=== PATIENT | female | born 1990 ===

== ENCOUNTER 2024-08-09 12:15 | Emergency (ER) | payer OTHER, SELFPAY ==
--- NOTE | ~2024-08-09 | CT_ITS ---
CLINICAL HISTORY: rectal bleeding CT abdomen and pelvis with contrast Comparison: None Findings: The lung bases are clear. Hepatomegaly. No bowel obstruction, pneumoperitoneum, or pneumatosis. Heterogeneous fluid-filled uterine cavity with hyperdense layering material likely blood products, may be physiologic. Bilateral adnexal cysts, on the left possibly corpus luteum cysts. Trace free pelvic fluid. The bones are intact. Focal spondylosis at L5-S1. Mildly prominent inguinal nodes. IMPRESSION: Findings suggestive of ruptured adnexal cysts with trace free pelvic fluid. This document has been electronically signed by: Eusebio Lombardi MD on 08/09/2024 20:28:43
[2024-08-09 12:33] VITALS: BP 132/73; PULSE 85; RESP 16; TEMP 36.8; O2SAT 100; BMI 23.6
--- NOTE | 2024-08-09 12:38 | ED_ITS ---
HPI - General Adult General Chief complaint: GI Bleed Stated complaint: Blood in stool 2 weeks Time Seen by Provider: 08/09/24 16:32 Source: patient Mode of arrival: ambulatory Limitations: no limitations History of Present Illness ED Provider: Dr. Maria T Betts HPI narrative: patient comes to the emergency room complaining of 2 weeks of bright red blood per rectum. Patient states that last week she was menstruating and thought that she was having vaginal blood. However, now that her period stopped, she is still noticing blood per rectum. Patient denies abdominal pain, denies rectal pain. Patient concerned about the bleeding since this is the 1st time that it happens. Related Data Allergies Allergy/AdvReac Type Severity Reaction Status Date / Time methocarbamol [From Robaxin] AdvReac Muscle Verified 08/09/24 12:36 cramps Review of Systems 2 Review of Systems: Constitutional : No Weight loss, No Fever, No Chills, No Night Sweats, No Fatigue, No Malaise ENT/Mouth : No Hearing loss, No Ear Pain, No Nasal Congestion, No Sinus Pain, No Hoarseness, No sore throat, No Rhinorrhea, No Swallowing Difficulty Eyes: No Eye Pain, No Swelling, No Redness, No Foreign Body, No Discharge, No Vision Changes Cardiovascular : No Chest Pain, No SOB, No Dyspnea on Exertion, No Orthopnea, No Edema, No Palpitations Respiratory : No Cough, No Sputum, No Wheezing, No Smoke Exposure, No Dyspnea Gastrointestinal : No Nausea, No Vomiting, No Diarrhea, No Constipation, No abdominal Pain, Two weeks of ongoing bright red blood per rectum Genitourinary : no irregular bleeding, No Dysuria, No Urinary Frequency, No Hematuria, No Urinary Incontinence, No Urgency, No Flank Pain, No Urinary Flow Changes, No Hesitancy Musculoskeletal : No joint pain, No Myalgias, No Joint Swelling Skin : No Skin Lesions, No rash Neuro : No Weakness, No Numbness, No Paresthesias, No Loss of Consciousness, No Dizziness, No Headache Psych : No Anxiety/Panic, No Depression, No SI/HI/AH/VH, No Social Issues, Heme/Lymph: No Bruising, No Bleeding,No Lymphadenopathy Endocrine : No Polyuria, No Polydipsia, No Temperature Intolerance PMFSH Social History Social History Unable to assess alcohol history related to: Unknown Physical Exam ED Vital Signs: Vital Signs - 24 hr 08/09/24 12:33 08/09/24 20:51 08/09/24 21:27 Temperature 98.2 F 98.1 F 98.1 F Pulse Rate 85 84 84 Respiratory Rate 16 18 18 Blood Pressure 132/73 134/76 134/76 Pulse Oximetry 100 100 100 Oxygen Delivery Method Room Air Room Air Room Air BMI result Body Mass Index 23.6 Const Other: Appearance: Alert. Oriented X3. No acute distress. Eyes: Pupils equal, round and reactive to light. ENT: Pharynx normal. Neck: Normal inspection. Neck supple. No lymph nodes noted. No crepitus CVS: Normal heart rate and rhythm. Pulses normal. Normal S1 and S2 Respiratory: No respiratory distress. Breath sounds normal. No Wheezing. No rales Abdomen: Soft and nontender. No rigidity. No distention. digital rectal exam shows brown stool Skin: Skin warm and dry. Normal skin color. Normal skin turgor. Extremities: No lower extremity edema. No Lacerations. No Rash Neuro: Oriented X 3. No motor deficit. No sensory deficit. Moving all extremities. No slurred speech. CN 2 through 12 grossly intact Psych: calm, cooperative, normal affect Course Course Course Narrative: RME: 34-year-old female presents to ED for lower abdominal cramping with blood in stool for the past 2 weeks. Patient denies any recent trauma, fever, or chills. Labs ordered. Medications Administered Discontinued Medications Generic Name Dose Route Start Last Admin Trade Name Freq PRN Reason Stop Dose Admin Iohexol 100 ml 08/09/24 19:46 08/09/24 19:46 Iohexol 350 Mg/Ml 100 Ml Infus..Btl IV 08/09/24 19:47 85 ml ONCE ONE Administration Ondansetron HCl 4 mg 08/09/24 18:29 08/09/24 18:37 Ondansetron Odt 4 Mg Tab.Rapdis TRANSLINGU 08/09/24 18:30 4 mg ONCE ONE Administration Medical Decision Making Medical Decision Making [facility] Narrative: my interpretation of labs, normal hemoglobin and hematocrit, normal chemistry ultrasound shows bilateral cyst, possible cyst rupture. No obvious GI findings. I discussed with the patient that it is possible that she may have internal hemorrhoids. Patient instructed to follow-up with surgery as she may need anoscopy and/or internal hemorrhoid ligation Lab Data [facility] Lab Attestation statement: I reviewed the patient's lab results. 08/09/24 13:22 08/09/24 13:22 Labs: Lab Results 08/09/24 08/09/24 08/09/24 Range/Units 13:22 18:40 20:59 WBC 5.9 (4.8-10.8) X10*3/uL RBC 4.89 (4.20-5.50) X10*6/uL Hgb 14.4 (12.0-16.0) g/dl Hct 43.2 (37.0-47.0) % MCV 88.3 (80.0-98.0) fL MCH 29.4 (27.0-33.0) pg MCHC 33.3 (31.0-35.0) g/dl RDW 12.8 (11.0-16.0) % Plt Count 304 (160-400) X10*3/uL MPV 8.8 L (9.4-12.3) fL Immature Gran % (Auto) 0.2 (0.0-0.4) % Neut % (Auto) 48.8 (45-73) % Lymph % (Auto) 35.4 (20-40) % Garrett % (Auto) 14.5 H (2-11) % Eos % (Auto) 0.9 (0-4) % Baso % (Auto) 0.2 (0-2) % Lymph # (Auto) 2.1 (1.2-4.9) X10*3/uL Garrett # (Auto) 0.9 (0.1-1.2) X10*3/uL Eos # (Auto) 0.1 (0.0-0.4) X10*3/uL Baso # (Auto) 0.0 (0.0-0.2) X10*3/uL Abs Immat Gran (auto) 0.01 (0.00-0.03) X10*3/uL Absolute Neuts (auto) 2.9 (2.0-8.3) x10*3/uL Absolute Nucleated RBC 0.000 (0.0-0.012) X10*3/uL Nucleated RBC % (auto) 0.0 (0.0-0.2) /100WBC PT 10.4 L (10.9-12.4) SEC INR 0.9 (0.9-1.1) APTT 31.2 (26.0-36.8) SEC Sodium 140 (135-145) mmol/L Potassium 4.5 (3.3-5.1) mmol/L Chloride 103 (96-108) mmol/L Carbon Dioxide 31 H (22-29) mmol/L Anion Gap 11 L (12-20) BUN 11 (9-16) mg/dL Creatinine 0.82 (0.5-1.4) mg/dL Estim Creat Clear Calc 93.1 Estimated GFR > 60 Random Glucose 115 (60-115) mg/dL Calcium 9.3 (8.4-10.2) mg/dL Total Bilirubin 0.2 (0.0-1.0) mg/dL AST 25 (5-31) U/L ALT 20 (0-31) U/L Alkaline Phosphatase 71 (39-117) U/L Total Protein 7.8 (6.5-8.0) g/dL Albumin 4.2 (3.5-5.0) g/dL Beta HCG, Quant < 2 mIU/mL Urine Color Yellow Urine Appearance Clear Urine pH 8.0 (5.0-9.0) Ur Specific [place] >= 1.030 H (1.005-1.025) Urine Protein Negative (Neg-Trace) mg/dL Urine Glucose (UA) Negative (Negative) mg/dL Urine Ketones Trace (Negative) mg/dL Urine Blood Negative (Negative) Urine Nitrite Negative (Negative) Ur Leukocyte Esterase Negative (Negative) Stool Occult Blood POSITIVE (NEGATIVE) Independent Interpretation I performed an independent interpretation of an: CT Scan Radiology Impression Discussion of test interpretation with radiology: I have reviewed the radiologist's reading. Radiologist Impression: Findings: The lung bases are clear. Hepatomegaly. No bowel obstruction, pneumoperitoneum, or pneumatosis. Heterogeneous fluid-filled uterine cavity with hyperdense layering material likely blood products, may be physiologic. Bilateral adnexal cysts, on the left possibly corpus luteum cysts. Trace free pelvic fluid. The bones are intact. Focal spondylosis at L5-S1. Mildly prominent inguinal nodes. IMPRESSION: Findings suggestive of ruptured adnexal cysts with trace free pelvic fluid. Discharge Plan Discharge Clinical Impression: Bleeding internal hemorrhoids Patient Disposition: Home, Self-Care Instructions: Hemorrhoids (ED) Additional Instructions: Please follow-up with your primary care physician tomorrow. If you have any worsening or new symptoms, please return to the emergency room or call 911 Referrals: Keven Howard MD [Physician] - 08/10/24 González Trejo MD [Physician] - 08/15/24 Stand Alone Forms: Work/School Release Interventions: ED Discharge Assessment Last Done: 08/09/24 21:27 Discharge Date/Time: 08/09/24 21:28 Print Language: Lithuanian
[2024-08-09 13:25] LABS: MANUAL DIFF FLAG NO
[2024-08-09 13:29] LABS: Basophils Percent Auto 0.2 % (0-2); Eosinophils Absolute Auto 0.1 X10*3/uL (0.0-0.4); Eosinophils Percent Auto 0.9 % (0-4); Hematocrit 43.2 % (37.0-47.0); Hemoglobin 14.4 g/dl (12.0-16.0); Imm Gran Abs Auto 0.01 X10*3/uL (0.00-0.03); Imm Gran Pct Auto 0.2 % (0.0-0.4); Lymphocytes Absolute Auto 2.1 X10*3/uL (1.2-4.9); Lymphocytes Percent Auto 35.4 % (20-40); Mean Corpuscular HGB Conc 33.3 g/dl (31.0-35.0); Mean Corpuscular Hemoglobin 29.4 pg (27.0-33.0); Mean Corpuscular Volume 88.3 fL (80.0-98.0); Mean Platelet Volume 8.8 fL (9.4-12.3); Monocytes Absolute Auto 0.9 X10*3/uL (0.1-1.2); Monocytes Percent Auto 14.5 % (2-11); Neutrophils Absolute Auto 2.9 x10*3/uL (2.0-8.3); Neutrophils Percent Auto 48.8 % (45-73); Platelet Count 304 X10*3/uL (160-400); Red Blood Count 4.89 X10*6/uL (4.20-5.50); Red Cell Distribution Width 12.8 % (11.0-16.0); White Blood Count 5.9 X10*3/uL (4.8-10.8)
[2024-08-09 13:36] LABS: INTERNATIONAL NORM RATIO 0.9 (0.9-1.1); Prothrombin Time 10.4 SEC (10.9-12.4)
[2024-08-09 13:39] LABS: Partial Thromboplastin Time 31.2 SEC (26.0-36.8)
[2024-08-09 13:50] LABS: Alanine Aminotransferase 20 U/L (0-31); Albumin Level 4.2 g/dL (3.5-5.0); Alkaline Phosphatase 71 U/L (39-117); Anion Gap 11 (12-20); Aspartate Amino Transferase 25 U/L (5-31); Bilirubin Total 0.2 mg/dL (0.0-1.0); Blood Urea Nitrogen 11 mg/dL (9-16); Calcium 9.3 mg/dL (8.4-10.2); Carbon Dioxide 31 mmol/L (22-29); Chloride 103 mmol/L (96-108); Creatinine Clr Calc Pharmacy 93.1; Estimated Glomerular Filt Rate > 60; Glucose Random 115 mg/dL (60-115); HCG Quantitative < 2 mIU/mL; Potassium 4.5 mmol/L (3.3-5.1); Sodium 140 mmol/L (135-145); Total Protein 7.8 g/dL (6.5-8.0)
[2024-08-09] MEDS: Ondansetron ODT 4 MG TAB.RAPDIS TRANSLINGU (18:37)
[2024-08-09 18:52] LABS: OBS Int Ctl Valid YES; OBS1 POSITIVE (NEGATIVE)
[2024-08-09] MEDS: iohexoL 350 MG/ML 100 ML INFUS..BTL IV (19:46)
[2024-08-09 20:51] VITALS: BP 134/76; PULSE 84; RESP 18; TEMP 36.7; O2SAT 100
[2024-08-09 21:27] VITALS: BP 134/76; PULSE 84; RESP 18; TEMP 36.7; O2SAT 100
[2024-08-09 21:55] LABS: Appearance Urine Clear; Color Urine Yellow; Glucose Urine UA Negative (Negative); Leukocyte Esterase Urine Negative (Negative); Nitrite Urine Negative (Negative); Specific Gravity - Urine >= 1.030 (1.005-1.025); Urine Blood Negative (Negative); Urine Ketones Trace mg/dL (Negative); Urine Protein Negative (Neg-Trace)
== END 2024-08-09 21:28 | disposition home or self-care (01) ==
PROVIDERS: Physician Assistant; Emergency Provider Emergency Medicine; PCP Registered Nurse
DX: K64.8 Other hemorrhoids (principal); R10.2 Pelvic and perineal pain; Z79.899 Other long term (current) drug therapy
CPT/HCPCS: 36415; 74177; 80053; 81003; 82272; 84702; 85025; 85610; 85730; 99284; Q9967

== ENCOUNTER → 2024-08-09 17:02 | Outpatient (BNV) | payer OTHER, SELFPAY | PROVIDERS: Emergency Provider Emergency Medicine; PCP Registered Nurse; Visit Provider Radiology Diagnostic Radiology | DX: K62.5 Hemorrhage of anus and rectum (principal) | CPT/HCPCS: 74177 ==

== ENCOUNTER 2024-08-17 15:33 | Outpatient (AMB) | payer OTHER, SELFPAY ==
[2024-08-17 15:33] VITALS: BMI 23.6
--- NOTE | 2024-08-17 15:33 | A.OFFVIS_ITS ---
Vital Signs 08/17/24 15:33 Height 5 ft 7 in Weight 150 lb 12.739 oz BMI 23.6 Intake Visit Reasons: Hemorrhoids, ruptured cyst Intake Note: This patient presents for [place] emergency department for hemorrhoids, ruputured cyst. Pt c/o; Onset July, she was advised she had some ovarian cyst that ruputured, reports no constipation, reports during this time she was having rectal bleeding. She reports her menstrual cycle also started on July she was not able to notice if her stools had blood. Director Of Strategic Initiatives Required: No Excavator Operator: Excavator Operator Present (Kvng) Accompanied by: Self / Same As Patient Allergies methocarbamol [From Robaxin] Adverse Reaction (Verified 08/17/24 15:54) Muscle cramps Medication List - Last Reconciled 08/17/24 by Keven Howard MD albuterol sulfate 90 mcg/actuation 2 puffs inhalation Q4H budesonide-formoterol 160-4.5 mcg/actuation (Symbicort) 2 puffs inhalation BID bupropion HCl XL 300 mg PO DAILY cyclobenzaprine 10 mg PO TID lorazepam 0.5 mg PO BEDTIME meloxicam 15 mg PO DAILY sumatriptan succinate 50 mg PO DAILY HPI HPI Hemorrhoids, ruptured cyst: Details: 34-year-old female referred for passage of bright blood per rectum. She says that this happened for about 2 weeks. She actually went to the ER earlier this month because of this. She says the last episode was about a week ago. She den ies any pain in the anus She did have a CT scan in the ER showing ruptured ovarian cysts. She denies being constipated. She says that she was told she had hemorrhoids when she was around the age of 17. [facility] Medical History (Updated 08/17/24 @ 16:02 by Keven Howard MD) Bright red blood per rectum Surgical History History of adenoidectomy Family History Family/Other Breast cancer Social History Unable to assess alcohol history related to: Unknown Review of Systems Const Denies chills and Denies fever(s) Card Denies chest pain, Denies dyspnea and Denies dyspnea on exertion Resp Denies cough, Denies dyspnea and Denies dyspnea on exertion GI Reports hematochezia and Denies change in bowel habits Denies hematuria Musc Denies back pain and Denies limited range of motion Neuro Denies focal weakness and Denies convulsions Psych Denies depression and Denies mood swings Physical Exam Vital Signs: BMI result Body Mass Index 23.6 Const General: comfortable and no acute distress Orientation/consciousness: patient oriented x3 Neck Neck: Yes no lymphadenopathy Resp Auscultation: clear to auscultation bilaterally Cardio Rhythm: regular rhythm GI Other: Rectal exam shows small external hemorrhoids Palpation (GI): Soft to palpation, nontender and no guarding Neuro General: patient oriented x3 Office Procedures Anoscopy She was in cameron-knife position. The anoscope was gently inserted. A full examination of the anal canal was done. She did have internal external hemorrhoidal column he is to be in the anterior area. There were no other lesions. There was no fissure. There was no induration on digital exam. There was no bleeding. [id number] Assessment & Plan Assessment & Plan (1) Bright red blood per rectum: Code(s): K62.5 - Hemorrhage of anus and rectum Category: Medical Plan: She has noted passage of bright blood per rectum with bowel movements. This happened 2 weeks ago and lasted for about a week. She has had no bleeding for almost a week now Anoscopy shows internal external hemorrhoids. This is the likely source of her bleeding. However, she is concerned that there may be a more proximal source in her colon so I told her that she should proceed with a colonoscopy to rule this out. She says she is supposed to see a outside plant field engineer here in the [facility]. We will assist her with this as well. I told her that she is welcome to come back to the office if she has any concerns with regards to her hemorrhoids. Coding Level of Care Code New Pt Level 3 (46862) Diagnoses Bright red blood per rectum K62.5 CPT Codes Details - CPT: 27128-Fecaahsf ([id number])
== END 2024-08-17 16:09 | disposition home or self-care (01) ==
PROVIDERS: PCP Registered Nurse; Visit Provider Surgery
DX: K62.5 Hemorrhage of anus and rectum (principal); K64.8 Other hemorrhoids
CPT/HCPCS: 46600; 99203

== ENCOUNTER → 2024-08-17 15:33 | Outpatient (BNVA) | payer OTHER, SELFPAY | PROVIDERS: PCP Registered Nurse; Visit Provider Surgery | DX: K62.5 Hemorrhage of anus and rectum (principal); K64.4 Residual hemorrhoidal skin tags; K64.8 Other hemorrhoids | CPT/HCPCS: 46600 ==

== ENCOUNTER 2025-04-17 11:57 | Outpatient (AMB) | payer OTHER, SELFPAY ==
--- NOTE | 2025-04-17 12:01 | MHC.OFFVIS ---
Vital Signs 04/17/25 12:10 Height 5 ft 7 in Weight 160 lb BMI 25.1 Intake Visit Reasons: ovarian cyst In Service Education Teacher Required: No Information Interpreted: non-clinical & clinical Accompanied by: Self / Same As Patient Allergies methocarbamol (From Robaxin) Adverse Reaction (Verified 04/17/25 12:11) Muscle cramps Is last menstrual period known: Yes Last menstrual period: 04/11/25 HPI Comments Details: Presenting complaining of irregular menstrual cycles with the last few months. History of ovarian cyst question ovarian cyst rupture in 08/27 Last co testing? [facility] Medical History Bright red blood per rectum Surgical History History of adenoidectomy Family History Family/Other Breast cancer Father HTN (hypertension) Maternal Grandfather HTN (hypertension) Diabetes Maternal Grandmother Hypothyroid Social History Household Members: Spouse Housing: House Alcohol intake: current Alcohol intake frequency: holidays/special occasions only Patient Tobacco Use Status: Never used Tobacco Use of substances other than those prescribed or required for medical reasons: Yes Substance Use Type: Marijuana Substance Use Type Other:: daily Current occupational status: employed 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 Sexually active: Yes Sexual orientation: Straight/Heterosexual Gender identity: Female Female Reproductive History Menstrual Age of Menarche: 11 Duration of menses: 3-5 days Date of last menstrual period: 04/11/25 Total pregnancies: 1 Full term: 0 Number of Living Children: 0 Review of Systems Const All systems reviewed & are unremarkable except as noted in HPI and below Card Reports as per HPI Resp Reports as per HPI GI Reports as per HPI and Reports no additional complaints Reports as per HPI Physical Exam Vital Signs: BMI result Body Mass Index 25.1 Const General: cooperative, healthy appearing and comfortable Chest Chest palpation & inspection: normal inspection of the chest and normal palpation of entire chest wall Breast/axilla inspection: normal inspection of the breasts and normal inspection of the axillae Breast/axilla palpation: normal palpation of the breasts, normal palpation of the axillae and no axillary lymphadenopathy Resp Effort & Inspection: normal respiratory effort Auscultation: clear to auscultation bilaterally Percussion: percussion normal Cardio Palpation: normal PMI Rate: regular rate Rhythm: regular rhythm Heart sounds: no murmurs and no rubs Peripheral pulses: Peripheral pulses 2+ throughout GI Inspection: Yes normal to inspection Palpation (GI): Soft to palpation, nontender, no guarding, not rigid and No hepatosplenomegaly present Percussion: Yes normal to percussion Auscultation: normal bowel sounds Rectal Exam - Female: deferred General: Yes bladder normal to palpation External Female Exam: No lesion Speculum Exam - Vagina: normal appearance of the vagina, normal palpation, normal vaginal discharge and not erythematous Speculum Exam - Cervix: normal appearance of the cervix and normal palpation Bimanual exam- vagina & uterus: normal bimanual exam, normal palpation, uterine size normal, bladder normal to palpation, consistency normal and normal palpation Bimanual Exam- Adnexa, other: normal adnexae, no masses and no tenderness Assessment & Plan Assessment & Plan (1) Abnormal uterine bleeding (AUB): Code(s): N93.9 - Abnormal uterine and vaginal bleeding, unspecified Category: Medical Plan: Co testing done, GC and chlamydia taken CBC, TSH, HCG, and pelvic ultrasound ordered. Discussed with the patient the different causes of abnormal bleeding including thyroid disorders, uterine and ovarian pathology, endometrial hyperplasia, carcinoma and other potential causes. Discussed with the patient the work up including CBC (to r/o anemia), TSH, pelvic Ultrasound, endometrial biopsy to r/o endometrial pathology. All questions answered and the patient verbalized understanding. Instructed the patient to schedule an appointment for an endometrial biopsy in 2 weeks. Orders: Orders US pelvic and transvaginal Today N93.9 - Abnormal uterine and vaginal bleeding, unspecified Complete Blood Count no Diff Today N93.9 - Abnormal uterine and vaginal bleeding, unspecified TSH reflex Free T4 Today N93.9 - Abnormal uterine and vaginal bleeding, unspecified HCG Quantitative Today N93.9 - Abnormal uterine and vaginal bleeding, unspecified Coding Level of Care Code New Pt Level 3 (42680) Diagnoses Abnormal uterine bleeding (AUB) N93.9
[2025-04-17 12:10] VITALS: BMI 25.1
--- OUTSIDE RECORDS SUMMARY | 2025-04-17 16:39 | XMS_ITS | Clinical Summary ---
Author Organization [facility] [address] [facility] Address [address] [place] [address] Phone Care Team Providers Care Project Product Manager Name Role Phone Aye Juarez Primary Care Provider Allergies Active Allergy Reactions Criticality Noted Date Comments Escitalopram Psychiatric High 12/06/2024 Methocarbamol Muscular Issues 10/31/2024 Medications buPROPion SR (WELLBUTRIN SR) 100 mg 12 hr tablet 4 Active Symbicort 160-4.5 mcg/actuation inhaler INHALE 2 PUFFS INTO THE LUNGS TWICE A DAY DIRECTED FOR 30 DAYS 4 Active albuterol HFA (PROAIR HFA ; PROVENTIL HFA ; VENTOLIN HFA) 90 mcg/actuation inhaler 5 Active PNV no.95/ferrous fum/folic ac ( ORAL) Take by mouth. Active buPROPion XL (WELLBUTRIN XL) 300 mg 24 hr tablet Take 1 tablet (300 mg total) by mouth 1 (one) time each day. Active SUMAtriptan (IMITREX) 50 mg tablet Take 1 tablet (50 mg total) by mouth 1 (one) time if needed. 4 Active ascorbic acid (VITAMIN C) 1,000 mg tablet Take 1 tablet (1,000 mg total) by mouth 1 (one) time each day. Active fluticasone propion-salmete roL (ADVAIR DISKUS) 500-50 mcg/dose diskus inhaler Inhale 1 puff twice a day by inhalation route for 30 days. 6 Active fluticasone propionate (Flonase Allergy Relief) 50 mcg/actuation nasal spray Take 1 spray every day by nasal route as needed. Active Active Problems Problem Noted Date Diagnosed Date Allergic rhinitis 12/06/2024 Amenorrhea 12/06/2024 Snoring 12/06/2024 Degeneration of lumbar intervertebral disc 12/06 Dysmenorrhea 12/06/2024 Fatigue 12/06/2024 Low back pain 12/06/2024 Pain in thoracic spine 12/06/2024 Pneumonia 12/06/2024 Tinnitus 12/06/2024 Marijuana use during 12/01/2024 Overview (12/06/2024): +MJ on UDS at IP (THC confirmed) Anxiety 11/29/2024 Asthma 11/29/2024 Depression 11/29/2024 Migraines 11/29/2024 Encounter for supervision of normal first in first trimester 11/29/2024 Overview (12/01/2024): 1. [facility] site: [facility] Ob[facility]yn: [address] [place] [address] ([phone]) 2. Delivery site: [facility] 3. Mobile Mommas: No 4. Dating criteria: LMP 5. Blood type: Unknown 6. Genetic screening: Date: Result: Panorama: Ordered Horizon: Ordered Nuchal: Ordered Survey: MSAFP: 6. GBS: Date: 7. FOB name: Guillermo 8. Plans A. Epidural or other pain management - B. Labor support identified - C. Tdap - Date: Flu - Date: D. Breast or Bottle feed: E. Baby's name - F. Circumcision - 9. Hospital Course: Primigravida of advanced maternal age in first t rimester 11/29/2024 Overview (11/29/2024): ASA 162 mg daily at 12w through delivery Referral for NIPT if desired Detailed US 3rd trimester growth US if maternal age 40 or greater Weekly NST at 36 weeks Offer delivery at 39 weeks if maternal age 40 or greater Spasm 10/12/2024 Moderate persistent asthma 05/25/2024 Pain of left hip joint 04/21/2024 Insomnia 03/15/2024 Vitamin D deficiency 02/17/2024 Hyperlipidemia 02/12/2023 Unable to concentrate 02/12/2023 Generalized anxiety disorder 07/18/2020 Moderate episode of recurren t major depressive disorder (CMS/HCC V24, CMS/HCC V28) 07/18/2020 COVID-19 05/19/2020 Overview (12/06/2024): Removal Reason: Problem marked historical by user sam from the COVID-19 watch flag Nausea 03/23/2013 Overview (12/06/2024): IMPRESSION: WILL DO SERUM HCG TO CONFIRM NO .; RECORDED 03/23/2013 8:59AM BY GILLES LAZARO MA, ANNOTATION/ADDENDUM Lyme disease 12/13/2012 Overview (12/06/2024): IMPRESSION: EXAM TODAY DOES NO LOOK LIKE EM BUT BASED ON DESCRIPTION YEST IT COULD HAVE BEEN. SINCE SHE ALSO HAS BEEN HAVING FLU LIKE SXS WILL TREAT FOR POSSIBLE EARLY LYME; RECORDED 12/13/2012 3:05PM BY REY GRESHAM MA, ANNOTATION/ADDENDUM Lymphadenopathy 12/03/2012 Overview (12/06/2024): RESOLVED DATE: 12/03/2012; IMPRESSION: RESOLVED; RECORDED 12/03/2012 3:43PM BY TITA CONCEPCION, ANNOTATION/ADDENDUM Acute laryngitis 09/02/2012 Overview (12/06/2024): IMPRESSION: SOOTHING LIQUIDS, WARM SALT WATER GARGLING ADVISED ALONG WITH VOICE REST.; RECORDED 09/02/2012 3:50PM BY REY GRESHAM MA, ANNOTATION/ADDENDUM Otitis media 09/02/2012 Overview (12/06/2024): IMPRESSION: CONTINU ABX, CALL IF NO IMPROVEMENT OVER NEXT 7-10 DAYS.; RECORDED 09/02/2012 3:50PM BY REY GRESHAM MA, ANNOTATION/ADDENDUM Acute upper respiratory infection 08/30/2012 Overview (12/06/2024): IMPRESSION: LUNGS WITH WHEEZES AND CRACKLES THROUGHOUT. WILL START ON ABX AND PREDNISONE. CXR TODAY. F/U NEXT WEEK FOR RE-EVAL, SOONER PRN IF SXS WORSEN IN THE INTERIM. WORK NOTE GIVEN.; RECORDED 08/30/2012 2:03PM BY GILLES LAZARO MA, ANNOTATION/ADDENDUM Cough 08/30/2012 Overview (12/06/2024): IMPRESSION: SOUNDS LIKE ALLERGIES VS URI TRIGERRING ASTHMA SYMPTOMS. WITH FEVER MOST LIKELY THE LATTER; RECORDED 08/30/2012 2:03PM BY IGLLES LAZARO MA, ANNOTATION/ADDENDUM Toxic effect of venom 08/30/2012 Overview (12/06/2024): IMPRESSION: PT TO ADMITTING INTERVIEWER AND CARRY WITH SHANDA, KNOWS HOW TO USE IT; RECORDED 08/30/2012 2:03PM BY GILLES LAZARO MA, ANNOTATION/ADDENDUM Immunizations Name Administration Dates Next Due DTaP (Infanrix) 6wks to less than 7yo ,10/01/1990,1989,1989,1989 Hepatitis B Pediatric (Enger ix B; Recombivax HB) to less than 20 yo 05/03/2000,08/03/1999,04/03/1999 Hib (HbOC) 07/03/1990 IPV Inactivated polio (Ipol) 6wks and older 06/03/1993,10/01/1990,1989,1988 Influenza Quadrivalent, 0.5m l, preservative free (Fluarix; FluLaval; Fluzone) ages 6mo and older (Afluria) 3yo and older 06/25/2021,06/19/2020 Influenza trivalent, with preservative (Fluzone; Afluria) 6mo and older 07/14/2011,06/30/2007 MMR, measles mumps and rubel la Live (Priorix; M-M-R II) 12mo and older 05/03/2000,07/03/1990 Td Tetanus diptheria (Tdvax) 7yo and older 04/03/1999 Tdap Tetanus diptheria acell ular pertussis (Boostrix; Adacel) 7yo and older 06/25/2021,12/09/2010 Varicella live (Varivax) 12m o and older 08/03/1991 influenza Split Preservative Free ID 09/02/2012 Surgical History Surgery Date Site/Laterality Comments ADENOIDECTOMY W/ MYRINGOTOMY AND TUBES Medical History Medical History Date Comments Mixed anxiety and depressive disorder PTSD (post-traumatic stress disorder) Migraine Varicella 1991 Family History Medical History Relation Name Comments Hypertension Father Diabetes Maternal Grandfather Pravin Miscarriages / Stillbirths Maternal Grandmother Corazon Thyroid disease Maternal Grandmother Corazon No Known Problems Paternal Grandfather No Known Problems Paternal Grandmother Relation Name Status Comments Father Alive Maternal Grandfather Pravin Alive Maternal Grandmother Corazon Alive Mother Alive Paternal Grandfather Paternal Grandmother Social History Tobacco Use Types Packs/Day Years Used Date Smoking Tobacco: Never Smokeless Tobacco: Never Tobacco Cessation:Counseling Given: Not Answered Alcohol Use Standard Drinks/Week Comments Not Currently 0 (1 standard drink = 0.6 oz pur e alcohol) Housing Instability Answer Date Recorde d Are you worried that in the next 2 months you may not have stable housing? No 12/01/2024 Food Access & Nutrition Answer Date Rec orded Do you have access to a vari ety of food including fruits and vegetables? Yes 12/01/2024 Access to Healthcare Answer Date Record ed Within the last 3 months, ho w many times did you visit the emergency department for your medical care? 1 12/01/2024 Health Literacy Answer Date Recorded How often do you need to hav e someone help you when you read instructions, pamphlets, or other written material from your doctor or pharmacy? Never 12/01/2024 Caregiver: How often do you need to have someone help you when you read instructions, pamphlets, or other written material from your doctor or pharmacy? Not on file 12/01/2024 Financial Risk Answer Date Recorded How hard is it for you to pa y for the very basics like food, housing, medical care, and air conditioning / heating? Not very hard 12/01/2024 Transportation Answer Date Recorded Has the lack of transportati on kept you from meetings, work, or from getting things needed for daily living? No Has the lack of transportati on kept you from medical appointments or from getting medications? No 12/01/2024 Social Isolation Answer Date Recorded How often do you feel lonely or isolated from those around you? Sometimes 12/01/2024 Food Risk Answer Date Recorded Within the past 12 months we worried whether our food would run out before we got money to buy more. Never true 12/01/2024 Within the past 12 months th e food we bought just didn't last and we didn't have money to get more. Never true 12/01/2024 Dependent Care Answer Date Recorded Do you need help finding or paying for care for your loved ones. For example, childcare administrator or elderly care for an older adult? Patient declined 12/01/2024 Education Answer Date Recorded Do you think completing more education or training, like finishing a GED, going to college, or learning a trade, would be helpful for you? N/A 12/01/2024 Employment and Income Answer Date Recor ded During the last four weeks, have you been actively looking for work? Patient declined 12/01/2024 Living Situation Answer Date Recorded What is your living situation? 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 Para Term AB IAB SAB Ectopic Multiple Livin g Live Births 1 Date Outcome GA Total Labor Labor/2nd/3rd Weight Sex Type Anes PTL Stacia A1 A5 Name Clin Summary * This document contains information received from the source organization and may not represent a complete record from that organization. Not on file Last Filed Vital Signs Vital Sign Reading Time Taken Comments Blood Pressure 128/84 12/16/2024 10:18 AM EDT Pulse 82 12/16/2024 10:18 AM EDT Temperature 36.7 C (98.1 F) 12/07/2024 12:02 AM EDT Respiratory Rate 18 12/16/2024 10:18 AM EDT Oxygen Saturation 100% 12/07/2024 12:02 AM EDT Inhaled Oxygen Concentration - - Weight 75.5 kg (166 lb 6.4 oz) 12/16/2024 10:18 AM EDT Height 170.2 cm (5' 7 ) 12/16/2024 10:18 AM EDT Body Mass Index 26.06 12/16/2024 10:18 AM EDT Plan of Treatment Health Maintenance Due Date Last Done Comments Pneumococcal Vaccine: Pediatrics (0 to 5 Years) and At-Risk Patients (6 to 49 Years) (1 of 2 - PCV) 2008 Cervical Cancer Screening: Pap Smear 2010 Cholesterol Screening (Lipid Panel) 10/24/2024 COVID-19 Vaccine ( season) 2025 06/04/2021, 11/03/2020, 10/05/2020 Influenza Vaccine (#1) 2025 , 06/19/2020, 09/02/2012, Additional history exists Social Influencers of Health Screening 12/01/2025 12/01/2024 DTaP,Tdap,and Td Vaccines (9 - Td or Tdap) 06/25/2031 06/25/2021, 12/09/2010, 04/03/1999, Additional history exists HIB Vaccines Completed 07/03/1990 Varicella Vaccines Aged Out 08/03/1991 No longer eligible based on patient's age to complete this topic IPV Vaccines Completed 06/03/1993, 08/1990, 1989, Additional history exists Hepatitis B Vaccines Completed 05/03/2000, 08/03/1999, 04/03/1999 MMR Vaccines Completed 05/03/2000, 07/03/1990 HIV Screening Completed 12/01/2024 Hepatitis C Screening Completed 12/01/2024 Depression Screening Completed 12/06/2024 HPV Vaccines Aged Out No longer eligi ble based on patient's age to complete this topic Hepatitis A Vaccines Aged Out No long er eligible based on patient's age to complete this topic Meningococcal ACWY Vaccine Aged Out N o longer eligible based on patient's age to complete this topic Meningococcal B Vaccine Aged Out No l onger eligible based on patient's age to complete this topic RSV Immunization Patients Under 20 months Aged Out No longer eligible based on patient's age to complete this topic Procedures Procedure Name Priority Date/Time Associated Diagnosis Comments HEPATITIS C ANTIBODY Routine 12/01/2024 3:41 PM EDT Primigravida of advanced maternal age in first trimester Encounter for supervision of normal first in first trimester HIV 1, 2 ANTIBODY, P24 ANTIGEN WITH REFLEX TO DIFFERENTIATION Routine 12/01/2024 3:41 PM EDT Primigravida of advanced maternal age in first trimester Encounter for supervision of normal first in first trimester from Last 3 Months or Most Recently Relevant to Health Maintenance Results * Hepatitis C antibody (12/01/2024 3:41 PM EDT) Hepatitis C Antibody Negative Negative LAB CHEMISTRY METHOD 12/01/2024 7:06 PM EDT [facility] Blood Venous blood specimen / Unknown Venipuncture / Unknown 12/01/2024 3:41 PM EDT 12/01/2024 3:41 PM EDT Rosina David [facility] BLOOD ORDERABLES Final Result [facility] [address] [place] [address], * HIV 1,2 antibody, p24 antigen with reflex to differentiation (12/01/2024 3:41 PM EDT) Pathologist [facility] HIV Combo AB/AG Negative Negative LAB CHEMISTRY METHOD 12/01/2024 7:06 PM EDT [facility] Blood Venous blood specimen / Unknown Venipuncture / Unknown 12/01/2024 3:41 PM EDT 12/01/2024 3:41 PM EDT Narrative [facility] - 12/01/2024 7:06 PM EDT This assay is a 4th generation assay allowing for earlier detection of HIV infection by detecting the presence of the HIV-1 p24 antigen as well as the traditional antibodies to HIV type 1 (including group O) and type 2. Use of a 4th generation assay is the current CDC recommendation for HIV screening. us Rosina SINGH LAB BLOOD ORDERABLES Final Result [facility] [address] [place] [address], [place] [phone] from Last 3 Months or Most Recently Relevant to Health Maintenance Insurance [facility] [address] [place] [address] Care Teams Project Product Manager Relationship Specialty Start Date End Date Aye Juarez PA [address] [facility] [address] [place] [address] PCP - General 12/05/24
--- OUTSIDE RECORDS SUMMARY | 2025-04-17 16:39 | XMS_ITS | Patient Health Record ---
Author Organization [facility] Address [address] [place] [address] Care Team Providers Care Data Center Project Manager Name Role Phone CAMRYN CYR Primary Care Provider Unavailable Bhavana Louie Unavailable [phone] Allergies Allergen (clinical drug ingredient) Drug/Non Drug Allergy documented on EMR Reaction Allergy Type Onset Date Status methocarbamol ROBAXIN Excess Muscle Soreness Drug Allergy Active Reason For Referral No Information Medications Medication SIG (Take, Route, Frequency, Duration) Notes Start Date End Date Status Ibuprofen 800MG 1 ORAL three times daily; Duration: -3 Carlos-MJ 02/23/2013 Not-Taking Flonase 50 MCG/ACT 1 spray in each nostril Nasally Once a day Active Vitamin B12 1000 MCG 1 tablet Orally Onc e a day Active Womens Multivitamin - Orally Active Magnesium 500 MG 1 tablet with a meal Orally Once a day Active Claritin 10 MG 1 tablet Orally Once a day Active Biotin 1000 MCG 1 tablet Orally Once a day unnown dose Active Social History Tobacco Use: Social History Observation Description Date Details (start date - stop date) Never Smoker NA - NA Tobacco Use/Smoking Question Answer Notes Are you a nonsmoker Alcohol Screen (Audit-C) Question Answer Notes Did you have a drink contain ing alcohol in the past year? Yes How often did you have a dri nk containing alcohol in the past year? 2 to 4 times a month (2 points) How many drinks did you have on a typical day when you were drinking in the past year? 1 or 2 drinks (0 point) Points 2 Interpretation Negative Sexual History Question Answer Notes Had sex in the past 12 months (vaginal, oral, or anal)? Yes with Men only Prevention strategies discussed: Other Problems Problem Type SNOMED Code ICD Code Onset Dates Problem Status W/U Status Risk Notes Problem Asthma (disorder) (313203493) Asthma, unspecified, unspecified status (493.90) Active confirmed Major Problem Dysmenorrhea (735035730) Dysmenorrhea (625.3) Active confirmed Diag Problem Light and infrequent menstruation (346564479) Scanty or infrequent menstruation (626.1) Active confirmed Major Problem Gynecological examination normal (552205501784815) Routine gynecological examination (V72.31) Active confirmed Major Plan Of Treatment Pending Test Test Name Order Date Urinalysis 06/11/2017 THIN PREP, HPV IF ASCUS (21-29YR) 2017 Insurance Providers Payer Name Payer Address Payer Phone Subscriber Number Group Number Insured Name Patient Relationship to Insured Coverage Start Date Coverage End Date [facility] [address] [place] [address] [id number] CJ ROGER Spouse - patient is the spouse of the insured Medical (General) History Medical History History ICD Code Degenerative Spine Disease Scanty or infrequent menstruation 626.1 Dysmenorrhea, unspecified N94.6 Other asthma J45.998 Oligomenorrhea, unspecified N91.5 Surgical History Surgery Date(Month/Year) Negley Teeth Adenoidectomy Eear Tubes Hospitalization History Reason Date(Month/Year) See Surgical Hx
--- OUTSIDE RECORDS SUMMARY | 2025-04-17 16:39 | XMS_ITS ---
Author Name [facility] Organization Unknown Care Team Organization Name Specialty Phone Email Start Date End Da te [employer] Insurance 10/03/2021 0 03/21/2024
== END 2025-04-17 12:44 | disposition home or self-care (01) ==
LOC: HO.HWS 11:58
PROVIDERS: PCP Registered Nurse; Visit Provider Obstetrics & Gynecology
DX: N93.9 Abnormal uterine and vaginal bleeding, unspecified (principal)
CPT/HCPCS: 99203

== ENCOUNTER 2025-04-17 11:57 | Outpatient (REF) | payer OTHER, SELFPAY ==
[2025-04-17 13:48] LABS: Hematocrit 41.5 % (37.0-47.0); Hemoglobin 14.0 g/dl (12.0-16.0); Mean Corpuscular HGB Conc 33.7 g/dl (31.0-35.0); Mean Corpuscular Hemoglobin 30.3 pg (27.0-33.0); Mean Corpuscular Volume 89.8 fL (80.0-98.0); NRBC Abs Auto 0.000 X10*3/uL (0.0-0.012); NRBC Pct Auto 0.0 /100WBC (0.0-0.2); Platelet Count 434 X10*3/uL (160-400); Red Blood Count 4.62 X10*6/uL (4.20-5.50); White Blood Count 7.3 X10*3/uL (4.8-10.8)
[2025-04-17 21:17] LABS: CT PCR NOT DETECTED (Not Detect.); NG PCR NOT DETECTED (Not Detect.)
== END 2025-04-17 11:58 | disposition home or self-care (01) ==
LOC: HO.LAB 11:57
PROVIDERS: PCP Student in an Organized Health Care Education/Training Program; Visit Provider Obstetrics & Gynecology
DX: N93.9 Abnormal uterine and vaginal bleeding, unspecified (principal); Z32.02 Encounter for pregnancy test, result negative
CPT/HCPCS: 36415; 84443; 84702; 85027; 87491; 87591

== ENCOUNTER 2025-04-17 14:45 | Outpatient (REF) | payer OTHER, SELFPAY | END 2025-04-17 14:46 | disposition home or self-care (01) | LOC: HO.LNP 14:45 | PROVIDERS: Visit Provider Obstetrics & Gynecology | DX: N93.9 Abnormal uterine and vaginal bleeding, unspecified (principal) | CPT/HCPCS: 87626; 88175 ==

== ENCOUNTER 2025-06-01 09:02 | Outpatient (REF) | payer OTHER, SELFPAY ==
--- NOTE | ~2025-06-01 | US_ITS ---
CLINICAL HISTORY: N93.9 - Abnormal uterine and vaginal bleeding, unspecified Transabdominal and transvaginal pelvic ultrasound Comparison: None Findings: Uterus 8.3 x 3.3 x 4.3 cm. Endometrium 2 mm. No significant free fluid. 4 mm and 5 mm uterine fibroids. Right ovary 3.8 x 3.1 x 3.2 cm. 2.2 cm septated cyst. Left ovary 4.1 x 3.5 x 3.3 cm. 2.9 cm septated cyst with internal echoes. Recommend bilateral ovarian follow-up 1-2 months. Impression: Bilateral complex ovarian cysts Recommend follow-up in 1-2 months This document has been electronically signed by: Jin Vogt MD on 06/01/2025 21:20:47
--- OUTSIDE RECORDS SUMMARY | 2025-06-01 10:07 | XMS_ITS | Data Portability ---
Author Organization [facility], Main Office Address [address] [place] [address] [place] [phone] Care Team Providers Care Apple Packing Header Name Role Phone EUSEBIO HONG Manager Culinary VITALY CUEVA Primary Care Provider Unavailabl e Assessment Encounter Date Assessment Date Assessment LastModified by Organization Details LastModified Time 08/15/2024 08/15/2024 Discussed with patient the signs/symptoms warranted for a return to office visit and/or an ER visit. Patient understood and agreed with the plan. Not available 08/15/2024 10:05:46 10/12/2024 10/12/2024 This service was provided using telemedicine. Patient consented to video & audio visit service was provided at the patient's home Patient was located in the [facility]. Provider was located in the office. No other persons participated in the telemedicine visit except for the patient unless otherwise indicated here. Total time of visit was 20 minutes. [email or web address] Not available 11/03/2024 16:16:08 Plan of Treatment Reminders Order Date Submit Date Provider Last Modified By Organization Details Last Modified Time Details Appointments None recorde d. Lab lipid panel, serum 2024 025 [email or web address] [facility], [address], [place] , [place], [address], 5 15:19:11 CMP, serum or plasma 2024 025 [email or web address] [facility], [address], [address], [place], [address], 5 15:19:11 CBC w/ auto diff 2024 025 [facility] (Centralized Electronic Ordering - All Locations), Patient Can Go To The Location Of Their Choice, 5 11:58:55 TSH + free T4, serum 2024 025 [email or web address] [facility] (Centralized Electronic Ordering - All Locations), Patient Can Go To The Location Of Their Choice, [address] 5 15:19:11 Referral psychia trist referra l - pt is looking to get a formal evaluat ion for ADHD 2024 025 [email or web address] Vaibhav Sun MD, [address], [facility] [address], [place], [address], 5 10:21:46 gynecol ogist referra l - CT finding s of rupture d adnexal cysts with trace free pelvic fluid [email or web address] [place] [address] Women's Health Assistant Professor Of History, [address] [place] [address], [address], [place], [address], 5 09:38:40 gastroe nterolo gist referra l - [facility] for hemorrh oids. rec. referra l to GI 2024 025 jasmin Hwoard MD, [address] [facility], [place], [address], 5 10:41:56 Procedures None recorde d. Surgeries None recorde d. Imaging XR, hip + pelvis, bilater al - left hip pain worse since 04/01, diff walking , laying on it, sleepin g etc. radiate s into her groin 2023 [facility], [address] [place], [address], 4 09:31:01 XR, lumbar spine - low back pain into left hip and groin 2023 024 [facility] Radiology, [address] [place], [address], 4 17:13:38 Medication Orders albuter ol sulfate HFA 90 mcg/act uation aerosol inhaler [address]/Pharmacy #1157, [address] [place], [address], 5 15:19:11 Symbico rt 160 mcg-4.5 mcg/act uation HFA aerosol inhaler [address]/Pharmacy [address]1157, [address] [place], [address], 5 15:19:11 Flonase Allergy Relief 50 mcg/act uation nasal spray,s uspensi on 2024 025 [address] [place], [address], 5 15:19:11 tizanid ine 4 mg tablet 2024 025 [facility]/Pharmacy #1157, [address] [place], [address], 5 15:00:06 meloxic am 15 mg tablet [address] [facility] [address] [place], [address], 5 09:57:56 cyclobe nzaprin e 10 mg tablet 2023 025 [facility]/Pharmacy #1157, [address] [place], [address], 5 09:57:38 Patient TargetsNo targets recorded. Patient Instructions Encounter Date Encounter Id Patient Instructions Last Modified By Organization Details Last Modified Time 04/21/2024 [id number] sciatica: exercises [email or web address] Not available 04/21/2024 15:06:06 sciatica: exercises [email or web address] Not available 04/21/2024 15:06:06 sciatica: care instructions [email or web address] Not available 04/21/2024 15:06:06 piriformis syndrome: exercises [email or web address] Not available 04/21/2024 15:06:06 piriformis syndrome: care instructions [email or web address] Not available 04/21/2024 15:06:06 To call or return for worsening or concerns [email or web address] Not available 04/21/2024 15:49:15 08/15/2024 [id number] hemorrhoids: care instructions Not available 08/15/2024 10:15:36 10/12/2024 [id number] To call or return for worsening or concerns [email or web address] Not available 10/12/2024 15:41:14 12/14/2024 [id number] [facility] follow up visit, all current and discharge medications (OTC, herbal therapies, supplements) reviewed and reconciled with patient and or caregiver, including potential side effects, drug interactions, instructions, and the consequences of not taking medication. Reviewed potential barriers to medication adherence, such as side effects from medication or cost of medication. [email or web address] Not available 12/14/2024 08:56:24 Reason for Referral Clinical Allergist Referral for Hemorrhoids was [facility] for [facility]oids. rec. referral to GI Referring Physician: [facility], Encounter Date: 08/15/2024 Manager Culinary Referral for Cy st of ovary CT findings of ruptured adnexal cysts with trace free pelvic fluid Referring Physician: [facility], Encounter Date: 08/15/2024 Psychiatrist Referral for Po or concentration pt is looking to get a formal evaluation for ADHD Referring Physician: [facility], Encounter Date: 03/03/2025 Results Created Date Observation Date Name Description Value Unit Range Abnormal Flag Note LastModifiedBy Organization Detail LastModifiedTime 12/06/1912/05/2024 HCG, QUANT ITATI VE HCG quant 1562 mIU/m L Not Available [facility] [address] [place], [address], 12/05/2024 12:41:52 12/06/19 25 12/05/2024 HCG, QUANT ITATI VE note See Report [facility], [address], [place], [place] [address] Not Available [address], [address], 12/05/2024 12:41:52 12/02/1912/01/2024 CBC WITH AUTO DIFFE RENTI AL WBC 11.7 K/mcL 4.8-10 .8 high Not Available [address], [address], 12/01/2024 17:46:12 12/02/19 25 12/01/2024 CBC WITH AUTO DIFFE RENTI AL RBC 4.70 M/mcL 3.80-4 .80 Not Available [address], [address], 12/01/2024 17:46:12 12/02/19 25 12/01/2024 CBC WITH AUTO DIFFE RENTI AL hemoglobin 15.0 g/dL 11.5-1 6.0 Not Available [address], [address], 12/01/2024 17:46:12 12/02/19 25 12/01/2024 CBC WITH AUTO DIFFE RENTI AL hematocrit 43.5 % 35.0-4 7.0 Not Available [address], [address], 12/01/2024 17:46:12 12/02/19 25 12/01/2024 CBC WITH AUTO DIFFE RENTI AL MCV 91.8 fL 79.0-9 8.0 Not Available [address], [address], 12/01/2024 17:46:12 12/02/19 25 12/01/2024 CBC WITH AUTO DIFFE RENTI AL MCH 31.6 pcg 27.0-3 2.0 Not Available [address], [address], 12/01/2024 17:46:12 12/02/1912/01/2024 CBC WITH AUTO DIFFE RENTI AL MCHC 34.5 g/dL 32.0-3 7.0 Not Available [address], [address], 12/01/2024 17:46:12 12/02/19 25 12/01/2024 CBC WITH AUTO DIFFE RENTI AL RDW 13.4 % 11.0-1 5.0 Not Available [address], [address], 12/01/2024 17:46:12 12/02/1912/01/2024 CBC WITH AUTO DIFFE RENTI AL platelets 488 K/mcL 130-40 0 high Not Available [address], [address], 12/01/2024 17:46:12 12/02/19 25 12/01/2024 CBC WITH AUTO DIFFE RENTI AL MPV 8.8 fL 7.0-11 .0 Not Available [address], [address], 12/01/2024 17:46:12 12/02/1912/01/2024 CBC WITH AUTO DIFFE RENTI AL NRBC 0.0 % <1.0 Not Available [address], [address], 12/01/2024 17:46:12 12/02/19 25 12/01/2024 CBC WITH AUTO DIFFE RENTI AL NRBC absolute 0.00 K/mcL <0.10 Not Available [address], [address], 12/01/2024 17:46:12 12/02/19 25 12/01/2024 CBC WITH AUTO DIFFE RENTI AL neutrophils relative 64.2 % Not Available [address], [address], 12/01/2024 17:46:12 12/02/1912/01/2024 CBC WITH AUTO DIFFE RENTI AL lymphocytes relative 19.7 % Not Available [address], [address], 12/01/2024 17:46:12 12/02/19 25 12/01/2024 CBC WITH AUTO DIFFE RENTI AL monocytes relative 9.1 % Not Available [address], [address], 12/01/2024 17:46:12 12/02/1912/01/2024 CBC WITH AUTO DIFFE RENTI AL eosinophils relative 6.1 % Not Available [address], [address], 12/01/2024 17:46:12 12/02/19 25 12/01/2024 CBC WITH AUTO DIFFE RENTI AL basophils relative 0.6 % Not Available [address], [address], 12/01/2024 17:46:12 12/02/19 25 12/01/2024 CBC WITH AUTO DIFFE RENTI AL immature granulocytes relative 0.3 % Not Available [address], [address], 12/01/2024 17:46:12 12/02/19 25 12/01/2024 CBC WITH AUTO DIFFE RENTI AL neutrophils absolute 7.52 K/mcL 1.50-7 .00 high Not Available [address], [address], 12/01/2024 17:46:12 12/02/19 25 12/01/2024 CBC WITH AUTO DIFFE RENTI AL lymphocytes absolute 2.31 K/mcL 1.00-5 .00 Not Available [address], [address], 12/01/2024 17:46:12 12/02/19 25 12/01/2024 CBC WITH AUTO DIFFE RENTI AL monocytes absolute 1.07 K/mcL 0.20-1 .00 high Not Available [address], [address], 12/01/2024 17:46:12 12/02/19 25 12/01/2024 CBC WITH AUTO DIFFE RENTI AL eosinophils absolute 0.71 K/mcL 0.00-0 .50 high Not Available [address], [address], 12/01/2024 17:46:12 12/02/19 25 12/01/2024 CBC WITH AUTO DIFFE RENTI AL basophils absolute 0.07 K/mcL 0.00-0 .20 Not Available [address], [address], 12/01/2024 17:46:12 12/02/19 25 12/01/2024 CBC WITH AUTO DIFFE RENTI AL immature granulocytes absolute 0.04 K/mcL 0.00-0 .03 high Not Available [address], [address], 12/01/2024 17:46:12 12/02/1912/01/2024 CBC WITH AUTO DIFFE RENTI AL note See Report high [facility], [address], [place], [place] [address] Not Available [address], [address], 12/01/2024 17:46:12 12/02/1912/01/2024 HEPAT ITIS B SURFA CE ANTIG EN WITH REFLE X TO CONFI RMATI ON hepatitis B surface Ag Negati ve negati ve Not Available [address], [address], 12/01/2024 18:39:01 12/02/19 25 12/01/2024 HEPAT ITIS B SURFA CE ANTIG EN WITH REFLE X TO CONFI RMATI ON note See Report [facility], [address], [place], [facility] [place] [address] Not Available [address], [address], 12/01/2024 18:39:01 12/02/19 25 12/01/2024 RUBEL LA ANTIB ALESHIA IGG rubella IgG quant 44.8 I_uni t/mL >=10.0 Not Available [address], [address], 12/01/2024 18:39:09 12/02/19 25 12/01/2024 RUBEL LA ANTIB ALESHIA IGG rubella IgG antibody interp Positi ve positi ve Not Available [address], [address], 12/01/2024 18:39:09 12/02/19 25 12/01/2024 RUBEL LA ANTIB ALESHIA IGG note See Report [facility], [address], [place], [facility] [place] [address] Not Available [address], [address], 12/01/2024 18:39:09 12/02/19 25 12/01/2024 HIV 1, 2 ANTIB ALESHIA, P24 ANTIG EN WITH REFLE X TO DIFFE RENTI ATION HIV combo Ab/Ag Negati ve negati ve Not Available [address], [address], 12/01/2024 19:10:04 12/02/19 25 12/01/2024 HIV 1, 2 ANTIB ALESHIA, P24 ANTIG EN WITH REFLE X TO DIFFE RENTI ATION note See Report [facility], [address], [place], [facility] [place] [address] Not Available [address], [address], 12/01/2024 19:10:04 12/02/19 25 12/01/2024 HEPAT ITIS C ANTIB ALESHIA hepatitis C antibody Negati ve negati ve Not Available [address], [address], 12/01/2024 19:10:12 12/02/19 25 12/01/2024 HEPAT ITIS C ANTIB ALESHIA note See Report [facility], [address], [place], [facility] [place] [address] Not Available [address], [address], 12/01/2024 19:10:12 12/02/19 25 12/01/2024 DRUG ABUSE SCREE N EXPAN DED WITH REFLE X CONFI RMATI ON, URINE amphetamine screen, ur Negati ve negati ve Certa in OTC medic ation s conta ining ephed rine, pheny lephr ine, pseud oephe drine and pheny lprop anola mine can cause false posit margoth resul ts. Not Available [address], [address], 12/01/2024 19:32:03 12/02/19 25 12/01/2024 DRUG ABUSE SCREE N EXPAN DED WITH REFLE X CONFI RMATI ON, URINE barbiturate screen, ur Negati ve negati ve Not Available [address], [address], 12/01/2024 19:32:03 12/02/19 25 12/01/2024 DRUG ABUSE SCREE N EXPAN DED WITH REFLE X CONFI RMATI ON, URINE benzodiazepi ne screen, ur Negati ve negati ve Not Available [address], [address], 12/01/2024 19:32:03 12/02/19 25 12/01/2024 DRUG ABUSE SCREE N EXPAN DED WITH REFLE X CONFI RMATI ON, URINE cocaine screen, ur Negati ve negati ve Not Available [address], [address], 12/01/2024 19:32:03 12/02/19 25 12/01/2024 DRUG ABUSE SCREE N EXPAN DED WITH REFLE X CONFI RMATI ON, URINE opiate screen, ur Negati ve negati ve Not Available [address], [address], 12/01/2024 19:32:03 12/02/19 25 12/01/2024 DRUG ABUSE SCREE N EXPAN DED WITH REFLE X CONFI RMATI ON, URINE cannabinoid (THC) screen, ur Positi ve negati ve abnormal Speci mens from patie nts takin g panto prazo le sodiu m (Prot lizette) have been shown to produ ce false posit margoth resul ts. Not Available [address], [address], 12/01/2024 19:32:03 12/02/19 25 12/01/2024 DRUG ABUSE SCREE N EXPAN DED WITH REFLE X CONFI RMATI ON, URINE fentanyl, ur Negati ve negati ve Not Available [address], [address], 12/01/2024 19:32:03 12/02/19 25 12/01/2024 DRUG ABUSE SCREE N EXPAN DED WITH REFLE X CONFI RMATI ON, URINE oxycodone screen, ur Negati ve negati ve Not Available [address], [address], 12/01/2024 19:32:03 12/02/19 25 12/01/2024 DRUG ABUSE SCREE N EXPAN DED WITH REFLE X CONFI RMATI ON, URINE note See Report [facility], [address], [place], [facility] [place] [address] Not Available [address], [address], 12/01/2024 19:32:03 12/02/19 25 12/01/2024 TREPO NEMA PALLI DUM ANTIB ALESHIA WITH REFLE X TO RPR AND PARTI CURT AGGLU TINAT ION T. pallidum antibodies Negati ve negati ve Not Available [address], [address], 12/01/2024 20:38:13 12/02/19 25 12/01/2024 TREPO NEMA PALLI DUM ANTIB ALESHIA WITH REFLE X TO RPR AND PARTI CURT AGGLU TINAT ION note See Report [facility], [address], [place], [facility] [place] [address] Not Available [address], [address], 12/01/2024 20:38:13 12/02/19 25 12/01/2024 TYPE AND SCREE N ABO group B Not Available [address], [address], 12/02/2024 09:53:15 12/02/19 25 12/01/2024 TYPE AND SCREE N Rh type Positi ve Not Available [address], [address], 12/02/2024 09:53:15 12/02/19 25 12/01/2024 TYPE AND SCREE N antibody screen Negati ve Not Available [address], [address], 12/02/2024 09:53:15 12/02/19 25 12/01/2024 TYPE AND SCREE N note See Report [facility], [address], [place], [facility] [place] [address] Not Available [address], [address], 12/02/2024 09:53:15 12/02/19 25 12/01/2024 VARIC REGLA LENASTE R ANTIB ALESHIA IGG varicella IgG Positi ve positi ve Not Available [address], [address], 12/02/2024 11:01:34 12/02/19 25 12/01/2024 VARIC REGLA ZOSTE R ANTIB ALESHIA IGG varicella zoster IgG 12.90 S/co >=1.00 Not Available [address], [address], 12/02/2024 11:01:34 12/02/19 25 12/01/2024 VARIC REGLA ZOSTE R ANTIB ALESHIA IGG note See Report [facility], [address], [facility] [place] [address] Not Available [address], [address], 12/02/2024 11:01:34 12/02/19 25 12/01/2024 CULTU RE URINE .note See Note Origi nal Order ing Provi rafa: ARTHUR Marcial [facility] - Labor atory - [address], [facility] [place] [address] Not Available [address], [address], 12/02/2024 14:43:33 12/02/19 25 12/01/2024 CULTU RE URINE culture, urine <10,00 0 CFU/mL gram positi ve cocci, insign ifican t count, no furthe r workup Not Available [address], [address], 12/02/2024 14:43:33 04/21/20 24 04/21/2024 XR, lumba r spine Lumbar Spine 2 or 3 Views INDICA TION/C LINICA L QUESTI ON: Reason : pain / . TECHNI QUE: AP, latera l, cone-d own latera l views. . COMPAR DANA: None. FINDIN GS: There is normal segmen tation . There is no fractu re. There is no focal bony lesion . The alignm ent is normal includ ing no spondy lolist hesis. Modera te degene rative change at L5-S1 with disc space narrow ing and osteop hytes. Sacroi liac joints normal .. IMPRES ELISA: 1. No fractu re or focal lesion . 2. No spondy lolist hesis. 3. Degene rative change limite d to L5-S1. . WSN: [id number] Orderi ng Physic lola: Arturo Bunch Dictat ed By: Ryan Knowles MD Dictat ed Date/T maria guadalupe: 5:10 pm Review ed By: Ryan Knowles MD Signed By: Ryan Knowles MD Signed Date/T maria guadalupe: 5:10 pm Transc ribed By: MONAE Transc ribed Date/T maria guadalupe: 5:09 pm Patien t Class: Outpat ient [facility] (Outpt Imaging) [address] [place], [address], 04/22/2024 11:04:10 04/22/20 24 04/21/2024 xr hip bilat 3-4 views w/AP pelvi s XR Hip Bilat 3-4 Views W/AP Pelvis Reason : pain COMPAR DANA: None. FINDIN GS: There is no fractu re or disloc ation. Normal hips and sacroi liac joints . IMPRES ELISA: Normal . I have person ally review ed the images and I agree with this report . WSN: [id number] Orderi ng Physic lola: Arturo Bunch Dictat ed By: Deann Gannon MD Dictat ed Date/T maria guadalupe: 2:04 pm Review ed By: Nata Anderson MD Signed By: Nata Anderson MD Signed Date/T maria guadalupe: 2:09 pm Transc ribed By: MONAE Transc ribed Date/T maria guadalupe: 1:45 pm Patien t Class: Outpat ient [facility] (Outpt Imaging) [address], [place], [address], 04/22/2024 15:45:52 08/09/19 25 08/09/2024 CT, abdom en + pelvi s, w/ contr ast No observ ation record ed. [email or web address] (Medical Records) [address] [place], [address], 08/10/2024 10:00:15 Result Notes Documentation Provider Name and Address Organization Details Recorded Time Xr, Lumbar Spine : Lumbar Spine 2 or 3 Views INDICATION/CLINICAL QUESTION: Reason: pain / . TECHNIQUE: AP, lateral, cone-down lateral views.. COMPARISON: None. FINDINGS: There is normal segmentation. There is no fracture. There is no focal bony lesion. The alignment is normal including no spondylolisthesis. Moderate degenerative change at L5-S1 with disc space narrowing and osteophytes. Sacroiliac joints normal.. IMPRESSION: 1. No fracture or focal lesion. 2. No spondylolisthesis. 3. Degenerative change limited to L5-S1.. WSN: [id number] Ordering Physician: Donny Bunch Dictated By: Ryan Knowles MD Dictated Date/Time: 04/21/24 5:10 pm Reviewed By: Ryan Knowles MD Signed By: Ryan Knowles MD Signed Date/Time: 04/21/24 5:10 pm Transcribed By: MONAE Transcribed Date/Time: 04/21/24 5:09 pm Patient Class: Outpatient YONATHAN Bailon [address] [facility] [address], [place], [address], [facility] [place] 04/22/2024 10:50:33 Problems Name Problem SNOMED Code Status Onset Date Resolution Date Notes Provider Name and Address Organization Details Recorded Time Acute pharyngi tis 828253707 Completed 07/14/2019 ANABEL Gottlieb, [facility] 9 11:14:58 Allergic rhinitis 61223556 Active Donny Steward [address] [address], [place], [address], [facility] 6 09:45:34 Asthma 141943800 Active Donny Steward [address] [address], [place], [address], [facility] [place] 6 09:45:34 Acute asthma 771325290 Active Donny Steward [address] [address], [place], [address], [facility] [place] 6 09:45:34 Dysmenor rebeca 918537019 Active Donny Steward [address] [address], [place], [address], [facility] [place] 6 09:45:34 Malaise and fatigue [id number] Marvin Steward [address] [address], [place], [address], [facility] [place] 6 09:45:34 Low back pain [id number] [facility]ward [facility] [address] [place] [address] [place], [address], [facility] [place] 6 09:45:34 Sprains and strains of joints and adjacent muscles Active Donny Steward [address] [place], [address], [facility] [place] 6 09:45:34 Patient status finding [id number] Completed 07/14/2019 ANABEL Gottlieb, [facility] 9 11:15:13 Otitis media 37986806 Completed 05/15/2020 ANABEL Haque, [facility] 0 12:55:32 Pain in thoracic spine 519838456 Active Donny Steward [address], [place], [address], [facility] [place] 6 09:45:34 Pneumoni a 621863284 Active Donny Steward [address] [address], [place], [place], 9, [facility] [place] 6 09:45:34 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 Donny Steawrd [place] [address], [place], [place], 9, [facility] [place] 6 09:45:34 Tinnitus 14939668 Active Donny Steward [address] [address], [place], [place], 9, [facility] [place] 6 09:45:34 Allergy Active Donny Steward [address] [place] [address], [place], [place], 9, [facility] [place] 6 09:45:34 Cough 39341057 Completed 07/14/2019 ANABEL Gottlieb, [facility] 9 11:15:04 Upper respirat ory infectio n 52040484 Completed 07/14/2019 ANABEL Gottlieb, [facility] 9 11:15:26 Fatigue 65792857 Active Donny Steward [place] [address], [facility] [place], [place], [address], [facility] [place] 6 09:45:34 Amenorrh ea 74556685 Active Donny Steward [place] [address], [facility] ANABEL [place], 9, [facility] [place] 6 09:45:34 Degenera tion of lumbar interver tebral disc 56857093 Active Donny Steward [address], [place], [address], [facility] [place] 6 09:45:34 Snoring 77233783 Active Donny Steward [address], [place], [address], [facility] [place] 6 09:45:34 Administ ration of bacteria l and viral vaccine Completed 201002/14/2014 RECORDED 12/10/19 11 9:51AM BY CAMRYN Bello MD, OFFICE VISIT Donny Steward [address] [address], [place], [address], [facility] [place] 6 09:45:34 Administ ration of bacteria l and viral vaccine Completed 201003/09/2014 RECORDED 12/10/19 11 9:51AM BY CAMRYN Bello MD, OFFICE VISIT Donny Steward [address] [address], [place], [address], [facility] [place] 6 09:45:34 Administ ration of bacteria l and viral vaccine Completed 201003/10/2014 RECORDED 12/10/19 11 9:51AM BY CAMRYN Bello MD, OFFICE VISIT Donny Steward [address], [place], [address], [facility] [place] 6 09:45:34 Dysfunct ional uterine bleeding Completed 201202/14/2014 RECORDED 08/30/19 13 2:03PM BY GILLES LAZARO MA, ANNOTATI ON/ADDEN DUM Donny Steward [address], [place], [address], [facility] [place] 6 09:45:34 Acute sinusiti s 95152267 Completed 201202/14/2014 RECORDED 08/30/19 13 2:03PM BY GILLES LAZARO MA, LUISA ON/ADDEN BAYRON Steward, [facility] [address] [facility] [address], [place], [address], [facility] [place] 6 09:45:34 Acute upper respirat ory infectio n 12490625 Completed 201202/14/2014 IMPRESSI ON: LUNGS WITH WHEEZES AND CRACKLES THROUGHO UT. WILL START ON ABX AND PREDNISO NE. CXR TODAY. F/U NEXT WEEK FOR RE-EVAL, SOONER PRN IF SXS WORSEN IN THE INTERIM. 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 WITH FEVER MOST LIKELY THE LATTER; RECORDED 08/30/19 13 2:03PM BY GILLES LAZARO MA, ANNOTATI ON/ADDRANJITH Terry MA null, [facility] 9 11:15:04 Lucas [id number] Completed 201202/14/2014 IMPRESSI ON: FROM EFFUSION FORM ALLERGIE S TX BELOW; RECORDED 08/30/19 13 2:02PM BY GILLES LAZARO MA, LUISA ON/ADDRANJITH Steward, [facility] [address], [place], [address], [facility] [place] 6 09:45:34 Well child [id number] Completed 201202/14/2014 RECORDED 08/30/19 13 2:03PM BY GILLES LAZARO MA, ANNOTATI ON/SHALONDA Steward, [facility] [address], [place], [address], [facility] [place] 6 09:45:34 Dysfunct ional uterine bleeding Completed 201203/09/2014 RECORDED 08/30/19 13 2:03PM BY GILLES LAZARO MA, ANNOTATI ON/ADDRANJITH Steward, [facility] [address], [place], [address], [facility] [place] 6 09:45:34 Acute sinusiti s [id number] Completed 201203/09/2014 RECORDED 08/30/19 13 2:03PM BY GILLES LAZARO MA, ANNOTATI ON/SHALONDA Steward, [facility] [address] [facility] [address], [place], [address], [facility] [place] 6 09:45:34 Acute upper respirat ory infectio n [id number] Completed 201203/09/2014 IMPRESSI ON: LUNGS WITH WHEEZES AND CRACKLES THROUGHO UT. WILL START ON ABX AND PREDNISO NE. CXR TODAY. F/U NEXT WEEK FOR RE-EVAL, SOONER PRN IF SXS WORSEN IN THE INTERIM. 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 WITH FEVER MOST LIKELY THE LATTER; RECORDED 08/30/19 13 2:03PM BY GILLES LAZARO MA, ANNOTATI ON/ADDEN DUM Galina Terry MA null, [facility] 9 11:15:04 Otalgia [id number] Completed 201203/09/2014 IMPRESSI ON: FROM EFFUSION FORM ALLERGIE S TX BELOW; RECORDED 08/30/19 13 2:02PM BY GILLES LAZARO MA, ANNOTATI ON/SHALONDA Steward, [facility] [address] [facility] [address], [place], [address], [facility] [place] 6 09:45:34 Well child [id number] Completed 201203/09/2014 RECORDED 08/30/19 13 2:03PM BY GILLES LAZARO MA, ANNOTATI ON/SHALONDA Steward, [facility] [address] [facility] [address], [place], [address], [facility] [place] 6 09:45:34 Dysfunct ional uterine bleeding Completed 201203/10/2014 RECORDED 08/30/19 13 2:03PM BY GILLES LAZARO MA, ANNOTATI ON/ADDRANJITH Steward, [facility] [address] [facility] [address], [place], [address], [facility] [place] 6 09:45:34 Acute sinusiti s [id number] Completed 201203/10/2014 RECORDED 08/30/19 13 2:03PM BY GILLES LAZARO MA, ANNOTATI ON/ADDEN BAYRON Steward, [facility] [address] [facility] [address], [place], [address], [facility] [place] 6 09:45:34 Acute upper respirat ory infectio n [id number] Completed 201203/10/2014 IMPRESSI ON: LUNGS WITH WHEEZES AND CRACKLES THROUGHO UT. WILL START ON ABX AND PREDNISO NE. CXR TODAY. F/U NEXT WEEK FOR RE-EVAL, SOONER PRN IF SXS WORSEN IN THE INTERIM. 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 WITH FEVER MOST LIKELY THE LATTER; RECORDED 08/30/19 13 2:03PM BY GILLES LAZARO MA, ANNOTATI ON/SHALONDA Terry MA null, [facility] 9 11:15:04 Otalgia [id number] Completed 201203/10/2014 IMPRESSI ON: FROM EFFUSION FORM ALLERGIE S TX BELOW; RECORDED 08/30/19 13 2:02PM BY GILLES LAZARO MA, ANNOTATI ON/ADD DUM Donny Steward, [facility] [address] [facility] [address], [place], [address], [facility] [place] 6 09:45:34 Well child [id number] Completed 201203/10/2014 RECORDED 08/30/19 13 2:03PM BY GILLES LAZARO MA, ANNOTATI ON/ADDEN BAYRON Steward, [facility] [address] [facility] [address], [place], [address], [facility] [place] 6 09:45:34 Acute pharyngi tis [id number] Completed 201202/14/2014 IMPRESSI ON: SOUNDS VIRAL, AND SECONDAR Y TO POST NASAL DRIP. WILL R/O STREP. OTHERWIS E SUPPORTI VE TX ADVISED. CALL INB/WORS E.; RECORDED 09/02/19 13 3:50PM BY SONJA GRESHAM MA, ANNOTATI ON/ADDRANJITH DUM Galina Terry MA null, [facility] 9 11:14:58 Influenz a vaccine needed [id number] 06 Completed 201202/14/2014 RECORDED 09/02/19 13 3:59PM BY SONJA GRESHAM MA, OFFICE VISIT Donny Steward, [facility] [address] [facility] [address], [place], [address], [facility] [place] 6 09:45:34 Acute laryngit is [id number] Completed 201202/14/2014 IMPRESSI ON: SOOTHING LIQUIDS, WARM SALT WATER GARGLING ADVISED ALONG WITH VOICE REST.; RECORDED 09/02/19 13 3:50PM BY SONJA GRESHAM MA, ANNOTATI ON/ADDEN DUM Donny Steward [facility] [address] [address], [place], [address], [facility] [place] 6 09:45:34 Otitis media [id number] Completed 201202/14/2014 IMPRESSI ON: CONTINU ABX, CALL IF NO IMPROVEM ENT OVER NEXT 7-10 DAYS.; RECORDED 09/02/19 13 3:50PM BY SNOJA GRESHAM MA, ANNOTATI ON/ADDEN DUM [facility] 0 12:55:32 Influenz a vaccine needed [id number] 06 Completed 201203/09/2014 RECORDED 09/02/19 13 3:59PM BY SONJA GRESHAM MA, OFFICE VISIT Donny Steward [facility] [address] [address], [place], [address], [facility] [place] 6 09:45:34 Acute laryngit is [id number] Completed 201203/09/2014 IMPRESSI ON: SOOTHING LIQUIDS, WARM SALT WATER GARGLING ADVISED ALONG WITH VOICE REST.; RECORDED 09/02/19 13 3:50PM BY SONJA GRESHAM MA, ANNOTATI ON/ADDEN DUM Donny Steward [facility] [address] [address], [place], [address], [facility] [place] 6 09:45:34 Influenz a vaccine needed [id number] 06 Completed 201203/10/2014 RECORDED 09/02/19 13 3:59PM BY SONJA GRESHAM MA, OFFICE VISIT YONATHAN Bailon [address] [address], [place], [address], [facility] [place] 6 09:45:34 Acute laryngit is [id number] Completed 201203/10/2014 IMPRESSI ON: SOOTHING LIQUIDS, WARM SALT WATER GARGLING ADVISED ALONG WITH VOICE REST.; RECORDED 09/02/19 13 3:50PM BY SONJA GRESHAM MA, LUISA ON/SHALONDA Steward, [facility] [address] [facility] [address], [place], [address], [facility] [place] 6 09:45:34 Renewal of prescrip tion Completed 201202/14/2014 RECORDED 12/04/19 13 3:16PM BY SONJA GRESHAM MA, LUISA ON/ADDEN BAYRON Steward, [facility] [address] [facility] [address], [place], [address], [facility] [place] 6 09:45:34 Adult health examinat ion Completed 201202/14/2014 IMPRESSI ON: PT NEEDS PAP, 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, EXERCISI ES, NOT SEXUALLY ACITVE, NO HIGH RISK ACTIVITY ; RECORDED 12/04/19 13 3:16PM BY SONJA GRESHAM MA, LUISA ON/SHALONDA Steward, [facility] [address] [facility] [address], [place], [address], [facility] [place] 6 09:45:34 Lymphade nopathy [id number] Completed 201202/14/2014 RESOLVED DATE: 12/04/19 13; IMPRESSI ON: RESOLVED ; RECORDED 12/04/19 13 3:43PM BY TITA CONCEPCION, LUISA ON/SHALONDA Steward, [facility] [address] [facility] [address], [place], [address], [facility] [place] 6 09:45:34 Renewal of prescrip tion Completed 201203/09/2014 RECORDED 12/04/19 13 3:16PM BY SONJA GRESHAM MA, LUISA ON/SHALONDA Steward, [facility] [address] [facility] [address], [place], [address], [facility] [place] 6 09:45:34 Adult health examinat ion Completed 201203/09/2014 IMPRESSI ON: PT NEEDS PAP, 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, EXERCISI ES, NOT SEXUALLY ACITVE, NO HIGH RISK ACTIVITY ; RECORDED 12/04/19 13 3:16PM BY SONJA GRESHAM MA, LUISA ON/SHALONDA Steward, [facility] [address] [facility] [address], [facility] [place], [address], [facility] [place] 6 09:45:34 Lymphade nopathy [id number] Completed 201203/09/2014 RESOLVED DATE: 12/04/19 13; IMPRESSI ON: RESOLVED ; RECORDED 12/04/19 13 3:43PM BY TITA CONCEPCION, LUISA ON/SHALONDA Steward, [facility] [address] [facility] [address], [facility] [place], [address], [facility] [place] 6 09:45:34 Renewal of prescrip tion Completed 201203/10/2014 RECORDED 12/04/19 13 3:16PM BY SONJA GRESHAM MA, LUISA GLOVER/SHALONDA Steward, [facility] [address] [facility] [address], [place], [address], [facility] [place] 6 09:45:34 Adult health examinat ion Completed 201203/10/2014 IMPRESSI ON: PT NEEDS PAP, 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, 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, NOT SEXUALLY ACITVE, NO HIGH RISK ACTIVITY ; RECORDED 12/04/19 13 3:16PM BY SONJA GRESHAM MA, LUISA GLOVER/SHALONDA Steward, [facility] [address] [facility] [address], [place], [address], [facility] [place] 6 09:45:34 Lymphade nopathy [id number] Completed 201203/10/2014 RESOLVED DATE: 12/04/19 13; IMPRESSI ON: RESOLVED ; RECORDED 12/04/19 3:43PM BY TITA CONCEPCION, LUISA ON/SHALONDA Steward, [facility] [address] [facility] [address], [place], [address], [facility] [place] 6 09:45:34 Lyme disease [id number] Completed 201202/14/2014 IMPRESSI ON: EXAM TODAY DOES NO LOOK LIKE EM BUT BASED ON DESCRIPT ION YEST IT COULD HAVE BEEN. SINCE SHE ALSO HAS BEEN HAVING FLU LIKE SXS WILL TREAT FOR POSSIBLE EARLY LYME; RECORDED 12/14/19 3:05PM BY SONJA GRESHAM MA, LUISA ON/SHALONDA Steward, [facility] [address] [facility] [address], [place], [address], [facility] [place] 6 09:45:34 Lyme disease [id number] Completed 201203/09/2014 IMPRESSI ON: EXAM TODAY DOES NO LOOK LIKE EM BUT BASED ON DESCRIPT ION YEST IT COULD HAVE BEEN. SINCE SHE ALSO HAS BEEN HAVING FLU LIKE SXS WILL TREAT FOR POSSIBLE EARLY LYME; RECORDED 12/14/19 3:05PM BY SONJA GRESHAM MA, LUISA ON/SHALONDA Steward, [facility] [address] [facility] [address], [place], [address], [facility] [place] 6 09:45:34 Lyme disease [id number] Completed 201203/10/2014 IMPRESSI ON: EXAM TODAY DOES NO LOOK LIKE EM BUT BASED ON DESCRIPT ION YEST IT COULD HAVE BEEN. SINCE SHE ALSO HAS BEEN HAVING FLU LIKE SXS WILL TREAT FOR POSSIBLE EARLY LYME; RECORDED 12/14/19 13 3:05PM BY SONJA GRESHAM MA, LUISA GLOVER/SHALONDA Steward, [facility] [address] [facility] [address], [place], [address], [facility] [place] 6 09:45:34 Patient status finding [id number] Completed 201202/14/2014 RECORDED 03/23/20 13 8:59AM BY GILLES LAZARO MA, LUISA ON/ADDEN DUM Galina Terry MA null, [facility] 9 11:15:13 Nausea [id number] Completed 201202/14/2014 IMPRESSI ON: WILL DO SERUM HCG TO CONFIRM NO PREGNANC Y.; RECORDED 03/23/20 13 8:59AM BY GILLES LAZARO MA, LUISA ON/ADDEN DUM Donny Steward, [facility] [address], [facility] [place], [address], [facility] [place] 6 09:45:34 Patient status finding [id number] Completed 201203/09/2014 RECORDED 03/23/20 13 8:59AM BY GLILES LAZARO MA, LUISA ON/ADDEN BAYRON Terry MA null, [facility] 9 11:15:13 Nausea [id number] Completed 201203/09/2014 IMPRESSI ON: WILL DO SERUM HCG TO CONFIRM NO PREGNANC Y.; RECORDED 03/23/20 13 8:59AM BY GILLES LAZARO MA, LUISA ON/ADDEN DUM Donny Steward, [facility] [address], [place], [address], [facility] [place] 6 09:45:34 Patient status finding [id number] Completed 201203/10/2014 RECORDED 03/23/20 13 8:59AM BY GILLES LAZARO MA, LUISA ON/ADDEN DUM Galina Terry MA null, [facility] 9 11:15:13 Nausea [id number] Completed 201203/10/2014 IMPRESSI ON: WILL DO SERUM HCG TO CONFIRM NO PREGNANC Y.; RECORDED 03/23/20 13 8:59AM BY GILLES LAZARO MA, LUISA ON/ADDEN DUM Donny Steward, [facility] [address], [facility] [place], [address], [facility] [place] 6 09:45:34 COVID-19 [id number] Completed 201908/15/2020 Removal Reason: Problem marked historic al by user sam from the COVID-19 watch flag YONATHAN Bailon [address] [facility] [address], [place], [address], [facility] [place] 1 10:40:25 Generali zed anxiety disorder 60613307 Active 2019 Debbi pickett MA null, [facility] 1 10:12:16 Moderate recurren t major depressi on 53951623 Active 2019 Debbi pickett MA null, [facility] 1 10:12:34 Migraine 55465912 Active 2021 Gonzalo Mercado MD [address] [facility] [address], [place], [address], [facility] [place] 2 14:52:10 Anxiety 89004890 Active 2022 YONATHAN Bailon [address] [facility] [address], [place], [address], [facility] [place] 3 13:19:57 Recurren t major depressi ve episodes , moderate 777211520 Active 2022 YONATHAN Bailon [address] [facility] [address], [place], [address], [facility] [place] 3 13:19:57 Hyperlip idemia 73643502 Active 2022 YONATHAN Bailon [address] [facility] [address], [place], [address], [facility] [place] 3 13:26:24 Unable to concentr ate 11994823 Active 2022 Janitza C. Thabet, [facility] [address], [place], [address], [facility] [place] 3 13:36:31 Vitamin D deficien cy 75753191 Active 2023 Donny Steward, [facility] [address], [place], [address], [facility] [place] 4 15:55:45 Insomnia 354517311 Active 2023 Donny Steward, [facility] [address], [place], [address], [facility] [place] 4 16:16:24 Pain of left hip joint [id number] 9100 Active 2023 Donny Steward, [facility] [address], [place], [address], [facility] [place] 4 14:53:39 Moderate persiste nt asthma 658752072 Active 2023 Donny Steward, [facility] [address], [place], [address], [facility] [place] 4 11:48:24 Spasm 26090858 Active 2024 Donny Steward, [facility] [address], [place], [address], [facility] [place] 5 15:39:17 Problem Notes None recorded. Procedures Surgical History Date Name Laterality Status Provider Name and Address Organization Details Recorded Time [place]eno[place] [facility] [place] 13:39:57 Imaging Results None recorded. Procedure Notes None recorded. Medical Equipment None Reported. Allergies Allergen ID Allergen Name Allergen Category Reaction Reaction Severity Criticality Documentation Date Start Date Code Code System Note Provider Name and Address Organization Details Recorded Time 83898 escitalop sherwin Not available confusion severe high 10/12/2024 19295 8 RxNorm Galina Terry MA null, [facility] 5 15:17:03 568 No known allergy (situatio n) Not available Not available Not available Not available 02/14/20142011 92693 6003 SNOMED COMME NT: RECOR DED 04/22 1:35P M BY GALINA EDGAR, OFFIC E VISIT ; Not Available [facility] 4 13:18:58 569 Robaxin medicatio n myalgias (muscle pain) Not available Not available 02/14/201428273 5 RxNorm Donny Steward, [facility] [address] [facility] [address], [place], [address], [facility] 4 14:10:21 Medications Name Sig Start Date Stop Date Status Note LastModified by Organization Details LastModified Time carisopro dol 350 mg tablet 3 TIMES A DAY 10/14 completed RECORDED 02/06/20 10 9:42AM BY SHANE FAGAN MD, MEDICATI ON AUTO-WADE CTIVATIO N; Not Available Not Available Not Available cyclobenz aprine 10 mg tablet TAKE 1 TABLET BY MOUTH THREE TIMES A DAY DIRECTED FOR 10 DAYS 08/15 completed Not Available Not Available Not Available venlafaxi ne ER 37.5 mg capsule,e xtended release 24 hr TAKE 1 CAPSULE BY MOUTH EVERY DAY DIRECTED FOR 30 DAYS 03/15 completed Not Available Not Available Not Available prednison e 10 mg tablet Take by oral route.50 mg day 140mg day 230mg day 320 mg day 410 mg day 5 2014 active Not Available Not Available Not Avai lable doxycycli ne hyclate 100 mg capsule TWO TIMES DAILY 12/13 completed RECORDED 12/14/19 13 4:09PM BY TITA CONCEPCION, ANNOTATI ON/SHALONDA DUM; Not Available Not Available Not Available cetirizin e 10 mg tablet Take 1 tablet every day by oral route at bedtime. 02/12 completed Not Available Not Available Not Available ibuprofen 800 mg tablet Take 1 tablet every 6 hours by oral route as needed. 2012 active Not Available Not Available Not Avai lable tizanidin e 4 mg tablet TAKE 1 TABLET BY MOUTH TWICE A DAY DIRECTED FOR 14 DAYS 03/03 completed Not Available Not Available Not Available valacyclo vir 1 gram tablet Take 1 tablet 3 times a day by oral route as directed for 7 days. 07/18 completed Not Available Not Available Not Available meloxicam 15 mg tablet TAKE 1 TABLET BY MOUTH EVERY DAY DIRECTED 08/15 completed Not Available Not Available Not Available phenazopy ridine 200 mg tablet TAKE 1 TABLET BY MOUTH THREE TIMES A DAY 12/29 completed Not Available Not Available Not Available prednison e 20 mg tablet DAILY FOR 3 DAYS THEN 1 TAB DAILY FOR 3 DAYS 04/28 completed RECORDED 07/28/20 12 11:22AM BY GONZALO Cisneros MD, MEDICATI ON AUTO-WADE CTIVATIO N; Not Available Not Available Not Available sertralin e 100 mg tablet Take 2 tablets every day by oral route as directed for 30 days. 06/25 completed Not Available Not Available Not Available Zithromax Z-Shemar 250 mg tablet QD 08/30 completed RECORDED 12/03/19 14 10:48AM BY CAMRYN Bello MD, MEDICATI ON AUTO-WADE CTIVATIO N;2PO QD FOR 1 DAY, THEN 1 QD FOR 4 DAYS. Not Available Not Available Not Available permethri n 5 % topical cream 04/11 completed Not Available Not Available Not Available sumatript an 50 mg tablet TAKE 1 TABLET BY MOUTH EVERY DAY DIRECTED FOR 28 DAYS 2024 active Not Available Not Available Not Avai lable melatonin 3 mg tablet Take 3 tablets as needed by oral route at bedtime. 06/25 completed Not Available Not Available Not Available ciproflox acin 250 mg tablet TAKE 1 TABLET BY MOUTH TWICE A DAY FOR 3 DAYS 04/29 completed Not Available Not Available Not Available Tamiflu 75 mg capsule Take 1 capsule twice a day by oral route for 5 days. 01/28 completed Not Available Not Available Not Available sulfameth oxazole 800 mg-trimet hoprim 160 mg tablet Take 1 tablet every 12 hours by oral route for 3 days. 04/30 completed Not Available Not Available Not Available bupropion HCl SR 100 mg tablet,12 hr sustained -release TAKE 1 TABLET BY MOUTH TWICE A DAY DIRECTED FOR 90 DAYS 07/06 completed Not Available Not Available Not Available oxycodone -acetamin ophen 5 mg-325 mg tablet Q 12 HOURS PRN PAIN 2013 active RECORDED 12/03/19 14 11:09AM BY CAMRYN Bello MD, ANNOTATI ON/ADDEN DUM; Not Available Not Available Not Available alprazola m 0.5 mg tablet Take 1 tablet 3 times a day by oral route as directed for 7 days. 06/19 completed Not Available Not Available Not Available amoxicill in 875 mg tablet Take 1 tablet every 12 hours by oral route as directed for 10 days. active Not Available Not Available No t Available Vitamin C 1,000 mg tablet Take 1 tablet every day by oral route. 03/03 completed Not Available Not Available Not Available lorazepam 0.5 mg tablet TAKE 1 TABLET BY MOUTH EVERY DAY AT BEDTIME FOR 14 DAYS 04/21 completed Not Available Not Available Not Available Advair Diskus 500 mcg-50 mcg/dose powder for inhalatio n Inhale 1 puff twice a day by inhalati on route for 30 days. 2015 active Not Available Not Available Not Avai lable azithromy jair 100 mg/5 mL oral suspensio n DAILY 09/02 completed RECORDED 09/02/19 13 3:55PM BY SONJA GRESHAM MA, OFFICE VISIT; Not Available Not Available Not Available hydroxyzi ne HCl 25 mg tablet Take by oral route for 6 days. 04/11 completed Not Available Not Available Not Available codeine 10 mg-guaife nesin 100 mg/5 mL oral liquid Take 10 mL every 4 hours by oral route as directed for 4 days. 2015 active Not Available Not Available Not Avai lable magnesium 250 mg tablet Take 2 tablets every day by oral route in the evening. active Not Available Not Available No t Available Levaquin 500 mg tablet Take 1 tablet every 24 hours by oral route for 10 days. 2014 active Not Available Not Available Not Avai lable albuterol sulfate HFA 90 mcg/actua tion aerosol inhaler Inhale 2 puffs every 4 hours by inhalati on route as directed for 30 days. 2024 active Not Available Not Available Not Avai lable norethind natali (contrace ptive) 0.35 mg tablet Take 1 tablet every day by oral route as directed for 28 days. 06/25 completed Not Available Not Available Not Available fluticaso ne propionat e 50 mcg/actua tion nasal spray,jamel pension INHALE 1 SPRAY INTRANAS AL ROUTE DAILY NEEDED 2024 active Not Available Not Available Not Avai lable sertralin e 50 mg tablet TAKE 2 TABLETS BY MOUTH EVERY DAY FOR 29 DAYS DIRECTED 11/20 completed nausea and headache s Not Available Not Available Not Available loratadin e 10 mg tablet Take 1 tablet every day by oral route. 08/23 completed Not Available Not Available Not Available diazepam 5 mg tablet Q 8HRS PRN SPASM 02/27 completed RECORDED 03/02/20 13 1:54PM BY CAMRYN Bello MD, MEDICATI ON AUTO-WADE CTIVATIO N; Not Available Not Available Not Available metoclopr amide 10 mg tablet TAKE 1 TABLET (10 MG TOTAL) BY MOUTH 4 (FOUR) TIMES A DAY (BEFORE MEALS AND NIGHTLY) . 12/14 completed Not Available Not Available Not Available amoxicill in 875 mg-potass ium clavulana te 125 mg tablet Take 1 tablet every 12 hours by oral route for 10 days. 02/25 completed Not Available Not Available Not Available Cryselle (28) 0.3 mg-30 mcg tablet active Not Available Not Available Not Available escitalop sherwin 10 mg tablet TAKE 1 TABLET BY MOUTH EVERY DAY DIRECTED 10/12 completed Not Available Not Available Not Available escitalop sherwin 20 mg tablet Take 1 tablet every day by oral route for 30 days. 06/19 completed Not Available Not Available Not Available metaxalon e 800 mg tablet TID/PRN 12/09 completed RECORDED 12/10/19 11 9:23AM BY GALINA TERRY, OFFICE VISIT; Not Available Not Available Not Available June (21) 1.5 mg-30 mcg tablet Take 1 tablet every day by oral route as directed . 02/05 completed Not Available Not Available Not Available bupropion HCl XL 300 mg 24 hr tablet, extended release TAKE 1 TABLET BY MOUTH EVERY DAY DIRECTED 2024 active Not Available Not Available Not Avai lable bupropion HCl XL 150 mg 24 hr tablet, extended release TAKE 1 TABLET BY MOUTH EVERY DAY DIRECTED 04/21 completed Not Available Not Available Not Available (28) 1.5 mg-30 mcg (21)/75 mg (7) tablet 06/07 completed Not Available Not Available Not Available TriNessa (28) 0.18 mg(7)/0.2 15 mg(7)/0.2 5 mg(7)-35 mcg tablet DAILY 03/23 completed RECORDED 03/23/20 13 9:54AM BY GILLES LAZARO MA, OFFICE VISIT; Not Available Not Available Not Available Lutera (28) 0.1 mg-20 mcg tablet TAKE 1 TABLET BY MOUTH EVERY DAY 02/12 completed Not Available Not Available Not Available Aleve 2 pills a day active Not Available Not Available No t Available Amoxil BID 03/09 completed RECORDED 03/27/20 08 11:26AM BY SHANE FAGAN MD, MEDICATI ON AUTO-WADE CTIVATIO N; Not Available Not Available Not Available Epi E-Z Pen 12/14 completed RECORDED 12/15/19 07 9:21AM BY AMILCAR Norman, MEDICATI ON AUTO-WADE CTIVATIO N;THIS ORDER DISCONTI NUED PER MEDI-SPA N. Not Available Not Available Not Available apple cider vinegar 1 tablet daily 12/14 completed Unknown strength Not Available Not Available Not Available Vitamin B6 03/03 completed Not Available Not Available Not Available collagen 1 po qd 03/03 completed Not Available Not Available Not Available (28) 06/07 completed Not Available Not Available Not Available Symbicort 160 mcg-4.5 mcg/actua tion HFA aerosol inhaler Inhale 2 puffs twice a day by inhalati on route as directed for 30 days. 2024 active Not Available Not Available Not Avai lable Vitamin D3 125 mcg (5,000 unit) tablet Take 1 tablet every day by oral route. 09/13 completed Not Available Not Available Not Available Lo Loestrin Fe 1 mg-10 mcg (24)/10 mcg (2) tablet Take 1 tablet every day by oral route as directed for 84 days. 12/29 completed Pt states [facility] is saying they have no script on file for her Not Available Not Available Not Available Vitamin D3 50 mcg (2,000 unit) capsule Take 1 capsule every day by oral route. 12/14 completed Not Available Not Available Not Available One-A-Day Women's Active 18 mg iron-400 mcg-180 mg tablet Take 1 tablet every day by oral route. 03/03 completed Not Available Not Available Not Available EpiPen 2-Shemar 0.3 mg/0.3 mL injection , auto-inje ctor Take by injectio n route as needed 09/17 completed Not Available Not Available Not Available biotin 1 mg capsule Take 1 capsule every day by oral route as directed . 06/19 completed Not Available Not Available Not Available Fish Oil 1,000 mg (120 mg-180 mg) capsule Take 1 capsule every day by oral route. 03/03 completed Not Available Not Available Not Available Vitals Date Recorded Body height Body mass index (BMI) Body weight Oxygen saturation Oxygen saturation in Arterial blood by Pulse oximetry Heart rate Body temperature Systolic And Diastolic Provider Name and Address Organization Details Last Updated DateTime 5 167.64 cm 24.1 kg/m2 64511.9 6 g 98 % 98 % 81 /min 98.6 [degF] 122/73 mm[Hg] Galina Terry MA [facility] 5 09:56:51 Date Recorded Body height Provider Name an d Address Organization Details Last Updated DateTime 10/12/2024 167.64 cm Galina Terry MA [facility] 10/12/2024 15:15:42 Date Recorded Body height Body mass index (BMI) Body weight Heart rate Oxygen saturation Oxygen saturation in Arterial blood by Pulse oximetry Body temperature Systolic And Diastolic Provider Name and Address Organization Details Last Updated DateTime 5 167.64 cm 27.1 kg/m2 64212.5 2 g 80 /min 98 % 98 % 98.2 [degF] 113/73 mm[Hg] Elisa ArguetaAfia foster MA [facility] 5 09:03:54 Date Recorded Body height Body mass index (BMI) Body weight Heart rate Oxygen saturation Oxygen saturation in Arterial blood by Pulse oximetry Body temperature Systolic And Diastolic Provider Name and Address Organization Details Last Updated DateTime 5 167.64 cm 26.3 kg/m2 38537.5 6 g 67 /min 96 % 96 % 98.2 [degF] 130/72 mm[Hg] Elisa foster MA [facility] 5 14:59:04 Date Recorded Body height Body mass index (BMI) Body weight Oxygen saturation Oxygen saturation in Arterial blood by Pulse oximetry Heart rate Body temperature Systolic And Diastolic Provider Name and Address Organization Details Last Updated DateTime 4 167.64 cm 26 kg/m2 46369.4 7 g 98 % 98 % 81 /min 98.4 [degF] 116/67 mm[Hg] Galina Terry MA [facility] 4 14:44:19 Social History Question Answer Notes LastModified by Organizat ion Details LastModified Time Tobacco Smoking Status Never Smoker Sonja vilchis [facility] 05/11/2014 13:59:39 Do You Have An Advance Directive? Yes Information not available 06/18/2022 What Is Your Level Of Caffeine Consumption? Moderate Green Tea, Coffee 1-2/ Day Information not available 05/11/2014 How Much Tobacco Do You Chew? None Information not available 01/28/2018 What Type Of Diet Are You Following? REGULAR Information not available 06/07/2018 Which Illicit Or Recreational Drugs Have You Used? Marijuana Information not available 06/25/2021 Live Alone Or With Others? Alone Information not available 06/18/2022 Do You Take Precautions To Prevent Distracted Driving? Yes Information not available 01/08/2016 How Often Do You Need To Have Someone Help You When You Read Instructions, Pamphlets, Or Other Written Material From Your Doctor Or Pharmacy? Never Information not available 01/08/2016 Have You Served In The ? No Information not available 01/08/2017 Have You Or Anyone In Your Household Had Any Of The Following Symptoms In The Last 14 Days: Sore Throat, Cough, Chills, Body Aches For Unknown Reasons, Shortness Of Breath For Unknown Reasons, Loss Of Smell, Loss Of Taste, Fever At Or Greater Than 100 Degrees Fahrenheit? No Information not available 06/19/2020 Are You Or Anyone In Your Household A Health Care Provider Or Emergency Responder? No [email or web address] Information not available 06/19/2020 To The Best Of Your Knowledge Have You Been In Close Proximity To Any Individual Who Tested Positive For COVID-19? No [email or web address] Information not available 06/19/2020 Have You Recently Traveled To A COVID-19 High Risk Area Or Gathering In The Last 10 Days? No [email or web address] Information not available 08/15/2020 What Was The Date Of Your Most Recent Tobacco Screening? 03/03/2025 [email or web address] Information not available 03/03/2025 How Many Children Do You Have? 0 Information not available 06/25/2021 Do You Use Protection During Sex? Usually Information not available 12/30/2023 What Is Your Relationship Status? Domestic Partner Information not available 03/15/2024 Do You Use Your Seat Belt Or Car Seat Routinely? Yes Information not available 06/25/2021 Seat Belts Used Routinely Yes Information not available 06/18/2022 Are You Sexually Active? Yes Information not available 01/08/2016 Smoke Alarm In Home Yes Information not available 06/18/2022 Do You Have Smoke And Carbon Monoxide Detectors In Your Home? Yes Information not available 06/25/2021 At What Age Did You Start Smoking Tobacco? 0 Information not available 01/28/2018 Are You Passively Exposed To Smoke? No Information not available 01/08/2017 How Much Tobacco Do You Smoke? No Information not available 01/28/2018 Do You Use Sunscreen Routinely? Yes Information not available 01/08/2016 How Many Years Have You Smoked Tobacco? 0 Information not available 01/28/2018 Sex: Unknown Functional Status Question Answer Note LastModified by Organizat ion Details LastModified Time Do you use any illicit or recreational drugs? Yes Information not available 06/18/2022 Do you or have you ever used any other forms of tobacco or nicotine? No Information not available 06/18/2022 What is your level of alcohol consumption? Occasional rare Information not available 05/11/2014 Do you or have you ever used smokeless tobacco? Never used smokeless tobacco [email or web address] Information not available 02/25/2019 Are you currently employed? Yes Information not available 02/12/2023 Are you able to walk independently without assistance or assistive devices? YESWOREST Information not available 06/18/2022 Are you able to care for yourself independently? 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 Never used electronic cigarettes Information not available 06/18/2022 What is your exercise level? Heavy Yoga Information not available 03/15/2024 Mental Status None recorded. Family History Relationship Description Onset Age of this Age Resolved Age Notes LastModified by Organization Details LastModified Time Mother Well adult [email or web address] Not avail able 04/29/2023 14:30:09 Mother Migraine Not available 06/25/2021 13:27:35 Father Well adult [email or web address] Not avail able 04/29/2023 14:30:09 Father Blood pressure finding 53 [email or web address] Not available 04/29 14:30:09 Father Harmful pattern of use of alcohol Not available 2020 13:27:35 Maternal Aunt Carcinoma in situ of breast [email or web address] Not available 04/29 14:30:09 Maternal Grandmother Hypothyroidi sm [email or web address] Not available 04/29 14:30:09 Paternal Aunt Malignant neoplasm of skin 62 [email or web address] Not available 04/29 14:30:09 Maternal Grandfather Blood pressure finding [email or web address] Not available 04/29 14:30:09 Maternal Grandfather Diabetes mellitus Not available 2020 13:27:35 Maternal Grandfather Arthritis Not available 06/04 13:27:35 Brother Myocardial infarction 36 [email or web address] Not available 04/04 14:30:09 Unspecified Relation Alzheimer's disease Not available 2020 13:27:35 Sister Migraine Not available 06/25/2021 13:27:35 Sister Anxiety disorder Not available 2020 13:27:35 Medical History Condition Response Coronary Artery Disease N Gout N Other N Blood Diseases N Kidney Stones N Hyperthyroidism N Breast Cancer N mrsa exposure N Lung Disease N Hypothyroidism N Depression Y COPD N Defects or Inherited Disease N Developmental or Behavioral Disorders N Breast Problem N Anesthesia Complications N Headaches/Migraines Y Varicose Veins N Anxiety Disorder Y Muscle, Joint, or Bone Problems Y Obesity N Vision or Eye Problems N Arthritis N Head Injury/Concussion N Infertility N Polyps N Mental Disorder N Congenital Anomalies N Acid Reflux (GERD) N Cancer N Stroke N ADHD N Endometriosis N High Cholesterol N Liver Disease N Headaches N Fibromyalgia N Kidney Disease N Heart Problems N Ear or Hearing Problems N Hospitalizations N Thyroid Problems N GI Problems N Developmental Delay N Acne N Eating Disorder N Skin Problems N Anemia N Constipation N Bladder Problems N Mental Illness N Diabetes N Ovarian Cancer N Bedwetting N Blood Transfusions N Heart Problems/Murmur N Seizures/Epilepsy N Tuberculosis N AIDS/HIV N Congestive Heart Failure (CHF) N Eczema N Abuse/Domestic Violence N Diverticulitis N Asthma N Allergies Y Reflux/GERD N Hepatitis N Heart Disease N Pulmonary Embolism N Hypertension N Chicken Pox Y Autism Spectrum Disorder (ASD) N Osteoporosis N Gynecological History Statement/Question Response Abnormal Pap N Flow Moderate Date of Last Colonoscopy Menses Monthly Y HPV Vaccine Y Duration of Flow (days) 5 Age at Menarche 11 Current Control Method None LMP Approximate Obstetrics History GPAL:G 0 P 0 0 0 0 Immunizations Vaccine Type Date Status Note Provider Name and Address Organization Details Recorded Time COVID-19, mRNA, LNP-S, PF, 30 mcg/0.3 mL dose 06/04/20 21 completed [place] Jay, [facility] 11/20/2021 13:27:49 COVID-19, mRNA, LNP-S, PF, 30 mcg/0.3 mL dose 10/06/19 21 completed [place] Jay, [facility] 11/20/2021 13:27:49 COVID-19, mRNA, LNP-S, PF, 30 mcg/0.3 mL dose 11/04/19 21 completed [place] Jay, [facility] 11/20/2021 13:27:49 Influenza, split virus, quadrivalent, PF 06/19/20 20 completed ANA[place]EL Leung, [facility] 04/11/2022 14:24:15 Influenza, split virus, quadrivalent, PF 06/25/20 21 completed ANA[place]EL Leung, [facility] 04/11/2022 14:24:15 Tdap 06/25/20 completed ANABEL Leung, [facility] 04/11/2022 14:24:15 Influenza, split virus, quadrivalent, PF 08/23/19 20 cancelled patient objection ANABEL Law, [facility] 08/23/2019 09:56:39 IPV 06/03/19 89 completed Not Available [facility] 02/14/2014 13:23:38 DTaP 06/03/19 89 completed Not Available [facility] 02/14/2014 13:23:38 DTaP 08/03/18 90 completed Not Available [facility] 02/14/2014 13:23:38 IPV 08/03/18 90 completed Not Available [facility] 02/14/2014 13:23:38 DTaP 10/01/18 90 completed Not Available [facility] 02/14/2014 13:23:39 Hib (HbOC) 07/03/19 90 completed Not Available [facility] 02/14/2014 13:23:39 MMR 07/03/19 90 completed Not Available [facility] 02/14/2014 13:23:39 IPV 10/01/18 91 completed Not Available [facility] 02/14/2014 13:23:39 DTaP 10/01/18 91 completed Not Available [facility] 02/14/2014 13:23:39 varicella 08/03/18 92 completed Not Available [facility] 02/14/2014 13:23:39 DTaP 06/03/19 93 completed Not Available [facility] 02/14/2014 13:23:39 IPV 06/03/19 93 completed Not Available [facility] 02/14/2014 13:23:39 Hep B, adolescent or pediatric 04/03/19 99 completed Not Available [facility] 02/14/2014 13:23:39 Td (adult), 2 Lf tetanus toxoid, preservative free, adsorbed 04/03/19 99 completed Not Available [facility] 02/14/2014 13:23:39 Hep B, adolescent or pediatric 08/03/19 00 completed Not Available [facility] 02/14/2014 13:23:39 Hep B, adolescent or pediatric 05/03/20 00 completed Not Available [facility] 02/14/2014 13:23:39 MMR 05/03/20 00 completed Not Available [facility] 02/14/2014 13:23:39 Influenza, split virus, trivalent, preservative 06/30/20 07 completed Not Available [facility] 02/14/2014 13:23:39 Tdap 12/10/19 11 completed Not Available [facility] 02/14/2014 13:23:39 Influenza, split virus, trivalent, preservative 07/14/20 11 completed Not Available [facility] 02/14/2014 13:23:39 influenza, seasonal, intradermal, preservative free 09/02/19 13 completed Not Available [facility] 02/14/2014 13:23:39 Past Encounters Encounter ID Performer Location Encounter Start Date Encounter Closed Date Diagnosis/Indication Diagnosis SNOMED-CT Code Diagnosis ICD10 Code Diagnosis IMO Codes Diagnosis Note [id number] [facility] [id number] [facility] [facility] [place] [address] 12/31/2006 00:00:00 [id number] auto[facility]Comm erce [address] [facility] [address] [place] [address] 10/19/2007 00:00:00 [id number] auto[facility] erce [address] [facility] [facility] [place] [address] 09/03/2006 00:00:00 [id number] [address] [address] [place] [address] 02/28/2008 00:00:00 [id number] [address] [address] [address] [place] [address] 10/04/2008 00:00:00 [id number] [address] [address] [place] [address] 05/28/2010 00:00:00 [id number] [address] [address] [address] [place] [address] 12/09/2010 00:00:[id number] [facility] [address],[place] [address] [place] [address] 07/14/2011 00:00:00 [id number] autoEComm erce [address] [facility] [address] [place] [address] 07/17/2011 00:00:00 [id number] autoEComm erce [address] [facility] [address] [place] [address] 07/31/2011 00:00:00 [id number] autoEComm erce [address] [facility] [address] [place] [address] 09/18/2011 00:00:00 [id number] autoEComm erce [address] [facility] [address] [place] [address] 04/22/2012 00:00:00 [id number] autoEComm erce [address] [facility] [address] [place] [address] 08/30/2012 00:00:00 [id number] autoEComm erce [address] [facility] [address] [place] [address] 09/02/2012 00:00:00 [id number] autoEComm erce [address] [facility] [address] [place] [address] 12/03/2012 00:00:00 [id number] autoEComm erce [address] [facility] [address] [place] [address] 12/13/2012 00:00:00 [id number] autoEComm erce [address] [facility] [address] [place], [place] [address] 02/07/2013 00:00:00 [id number] autoEComm erce [address] [facility] [address] [place], [place] [address] 03/23/2013 00:00:00 [id number] autoEComm erce [address] [facility] [address] [place], [place] [address] 08/25/2013 00:00:00 [id number] Kevyn Mcdonough MD Main Office [address] [facility] [address] [place], [place] [address] 03/14/2014 13:00:50 03/14/2014 13:43:29 Tuberculosis screening [id number] [id number] Camryn ramirez MD Main Office [address] [address] [place] [address] 03/17/2014 09:55:15 03/17/2014 13:11:40 [id number] Camryn ramirez MD Main Office [address] [facility] [address] [place], [place] [address] 05/11/2014 13:48:32 05/11/2014 14:32:56 Adult health examination 649554125 pap is utd, doing a great job with weight loss, over 25lbs, is exercising . Asthma 899118354 stable on inhaler prn Allergy 776189940 beesting anaphylaxi s, hx, I reviewed with pt to carry epipen all the time, may repeat one time with second injector [id number] YONATHAN Bailon Main Office [address] [facility] [address] [place], [place] [address] 01/31/2015 10:47:44 01/31/2015 11:19:21 Acute pharyngitis 238953766 Rapid strep negative, sore throat likely due to PND/ coughing, continue Flonase daily. Otitis media 16929497 Righ t OM, Tylenol or ibuprofen for fever/ pain, lots of fluids, amox as prescribed x 10 days even if feeling better. Cough 24142496 Hx of asthma, wheezing on exam, recommend she take her inhaler 4 times daily x 2 days then as needed, continue Flonase daily and robitussin w/ codeine for cough should also help sore throat. [id number] YONATHAN Bailon Main Office [address] [address] [place] [address] 02/14/2015 14:40:30 02/14/2015 15:15:08 Cough 44052200 Robitussin with codeine as needed, use your inhaler every 4 hours as needed, CXR today. Asthma 324192441 Short prednisone burst for wheezing/ continued cough symptoms [id number] Camryn ramirez MD Main Office [address] [place] [address] [place] [address] 02/16/2015 13:49:41 02/16/2015 14:33:12 Cough 80302751 Pneumonia 398165919 see hx , prednisone helping but dark green sputum in ashtma flare treat as below, fluids rest call if not improving Acute asthma 433206688 [id number] Camryn ramirez MD Main Office [address] [place], [place] [address] [address] 08/10/2015 13:27:13 08/10/2015 14:00:09 Cough 82558970 R05 viral, treat as below, rest and fluids Upper resp iratory infection 64241858 J06.9 Asthma 509936115 J45.90 9 flared a bit, add advaira nd use proair with a spacer. reutn with sob, fever worsening status [id number] YONATHAN Bailon Main Office [facility] [address] [place] [address] 12/25/2015 15:55:02 12/25/2015 16:24:33 Fatigue 15680470 R53.83 Will check blood work today. Patient may need to have a sleep study done as well as she does snore and finds she wakes up at night. Stay well hydrated, well balanced meals, continue exercise daily. Amenorrhea 41837584 N91. 2 She is 1 week overdue for her menses, is on OCP and took it throughout instead of taking placebo due to vacation, will chesk test. [id number] YONATHAN Bailon Main Office [address] [place] [address] 01/08/2016 09:31:03 01/08/2016 10:12:18 Adult health examination 726699696 Z00.01 Will update immunizati on status and screen based on risk factors. Regular dental care, periodic eye examinatio ns, and safety measures advised. Distracted driving discussed. Immunizati ons UTD, blood work normal about 2 weeks ago. Pap UTD, will request records. [id number] YONATHAN Bailon Main Office [address] [place] [address] 01/08/2017 08:42:26 01/08/2017 09:36:21 Adult health examination 871155246 Z00.00 Will update immunizati on status and screen based on risk factors. Regular dental care, periodic eye examinatio ns, and safety measures advised. Distracted driving discussed. Pap UTD Snoring 58098022 R06.83 Will check sleep study as fatigue continues. Fatigue 26127550 R53.83 Will check blood work today. Patient may need to have a sleep study done as well as she does snore and finds she wakes up at night. Stay well hydrated, well balanced meals, continue exercise daily. [id number] Samaria Ramos PA-C Main Office [address] [place] [address] 02/17/2017 11:31:42 02/17/2017 12:03:12 Acute pharyngitis 314589060 J02.9 Acute otitis media 96716 03 H65.112 STart Sudafed PE 120 mg BID for decongesti on as well as Abx prescribed . OTC pain medication s advised. Manuel works the best for her. Eustachian tube disorder 49046273 H69.93 Pt. has h/o allergies. Uses FLovent. Advised to also try antihistam jaclyn. [id number] Camryn ramirez MD Main Office [address] [place] [address] 09/17/2017 12:37:18 09/17/2017 13:50:17 Acute pharyngitis 591005758 J02.9 neg quick strep Fever 227514397 R50.9 Influenza 9206632 J11.1 positive flu test, tx as below, fluids, rest return if any worsening [id number] YONATHAN Bailon Main Office [address] [facility] [address] [place] [address] 01/28/2018 11:24:46 01/28/2018 12:12:35 Adult health examination 531684961 Z00.00 Will update immunizati on status and screen based on risk factors. Regular dental care, periodic eye examinatio ns, and safety measures advised. Distracted driving discussed. Pap UTD Epidermoid cyst 08131399 6 L72.0 [id number] Dar Ramos PA-C Main Office [address] [facility] [address] [place] [address] 06/07/2018 10:28:57 06/07/2018 11:41:35 Acute sinusitis 56473439 J01.90 rec probiotics while on abx [id number] Kevyn Mcdonough MD Main Office [address] [address] [place] [address] 02/25/2019 12:57:38 02/25/2019 13:53:16 Adult health examination 708366469 Z00.00 Will update immunizati on status and screen based on risk factors. Regular dental care, periodic eye examinatio ns, and safety measures advised. Distracted driving discussed. Pap UTD Degenerati on of lumbar intervertebral disc 56865760 M51.36 Greater tr ochanteric pain syndrome 9435877 M70.62 right sided. she will take ibuprofen TID with food x 5 days. ,heat or ice whichever feels best, stretches as tolerated. recommend she use a recumbent bike/ take a break from elliptical . [id number] Kevyn Mcdonough MD Main Office [address] [address] [place] [address] 05/19/2019 14:10:58 05/19/2019 15:00:51 Adjustment disorder with anxious mood 84873722 F43.22 Patient has not slept multiple nights due to fear her will have another seizure. she feels extremely tired, just wants to get some rest but feels she needs to be alert and cannot sleep. Is very tearful, very anxious, her has an EEG at 10pm tonight and MRI tomorrow then PCP appt thursday and neuro consult thursday. Sx for less than 2 weeks due to situationa l incident. She may feel better after getting some sleep and also neuro consult. Will rx short term rx for alprazolam . If sx persist > 2 weeks we will discuss further tx with SSRI. [id number] Kevyn Mcdonough MD Main Office [address] [facility] [address] [place] [address] 07/14/2019 11:13:36 07/14/2019 12:03:35 Recurrent major depressive episodes, moderate 162246041 F33.1 doing ok on lexapro but still scoring high on PHQ-9 and CUBA. she is not crying as easily so is getting some relief from med. recommend we increase the dose and have her push it up to dinner time. May be more tired due to also taking melatonin with med. f/u in 6 weeks. Adjustment disorder with anxious mood 37917483 F43.22 do not take this with melatonin, use only as needed, no driving or alcohol with med. [id number] Kevyn Mcdonough MD Main Office [address] [facility] [address] [place] [address] 08/23/2019 09:30:03 08/23/2019 10:33:59 Influenza vaccination declined 634780888 Z28.21 Generalize d anxiety disorder 90873166 F41.1 Adjustment disorder with mixed emotional features 77529699 F43.23 Recurrent major depressive episodes, moderate 964902423 F33.1 Much better on 20mg lexapro. will continue, has a good support system. Will wait until PE in January for follow-up but will call if she needs anything prior. [id number] Kevyn Mcdonough MD Main Office [address] [facility] [address] [place] [address] 06/19/2020 14:27:46 06/19/2020 15:44:59 Adult health examination 516899561 Z00.00 Will update immunizati on status and screen based on risk factors. Regular dental care, periodic eye examinatio ns, and safety measures advised. Distracted driving discussed. Pap appt upcoming Needs infl uenza immunization 285271021 Z23 Abnormal weight gain 161 939468 R63.5 weight gain, on lexapro, not exercising much except she is active on weekends.. will switch lexapro to setraline, recommend short HIIT workouts or 30 mins exercise 4 times weekly, dietary changes. Screening for cardiovascular system disease 419022756 Z13.6 Recurrent major depressive episodes, moderate 368649097 F33.1 no need to wean off lexapro, start sertraline instead of next dose of lexapro. f/u in 1month for rec heck. Anxiety 44528043 F41.9 [id number] Kevyn Mcdonough MD [address] [place] [address] 07/18/2020 13:06:16 07/19/2020 08:58:40 Recurrent major depressive episodes, moderate 258342691 F33.1 will increase sertraline to 100mg daily. add lorazepam to use as needed until med kicks in fully. if any problems with med please call/ return. Generalize d anxiety disorder 06727032 F41.1 [id number] Kevyn Mcdonough MD [address] [place] [address] 08/15/2020 07:27:16 08/16/2020 13:39:16 Generalized anxiety disorder 14542718 F41.1 CUBA score 11/21 today. Moderate r ecurrent major depression 16186572 F33.1 PHQ-9 score 15/27. Improving but slowly, Patient uis frustrated that she is not feeling better. Positive reinforcem ent provided, reminded that meds are trial and error and only about 3% of people who start SSRI get relief from the first med they try. Will max dose of sertraline . plan to increase sertraline to 200mg over the next 2 weeks. if no change will add wellbutrin daily. Asthma 900250297 J45.90 9 Short prednisone burst for wheezing/ continued cough symptoms [id number] Kevyn Mcdonough MD [facility] [address] [facility] 207 [place] [address] 08/30/2020 08:18:48 08/30/2020 14:57:30 Moderate recurrent major depression 54759505 F33.1 PHQ-9 score 20/27. Improving but slowly, Patient is frustrated that she is not feeling better. Positive reinforcem ent provided, reminded that meds are trial and error and only about 3% of people who start SSRI get relief from the first med they try. She is at max dose of sertraline . Will add wellbutrin daily. f/u in 2 weeks for recheck. Generalize d anxiety disorder 92075833 F41.1 CUBA score 8/21 today. Improved. she feels anxiety is a lot better . [id number] Kevyn cMdonough MD [address] [place] [address] 09/13/2020 06:21:52 09/13/2020 12:52:26 Moderate recurrent major depression 65433850 F33.1 PHQ-9 score 12. Improving but slowly, Patient is frustrated that she is not feeling better. Positive reinforcem ent provided, continue meds as directed, do not miss doses or stop meds abruptly. F/u in 2 months for recheck. Generalize d anxiety disorder 85044857 F41.1 CUBA score 4/21 today. Improved. she feels anxiety is a lot better . Insomnia 629983069 G47.0 0 using lorazepam as needed. [id number] Gonzalo Mercado MD [address] [place] [address] 09/15/2020 09:08:57 09/15/2020 12:14:54 Dysuria 52933340 R30.9 Will cover for uncomplica john cystitis. Push fluids and submit UA/culture if possible prior to starting abx. INB/worse will need further eval. [id number] Kevyn Mcdonough MD Main Office [address] [place] [address] 04/30/2021 10:38:55 04/30/2021 11:21:37 Amenorrhea 74037842 N91.2 She took preg test at home and was concerned as it was positive 24 hours later. ? evap line vs as she started OCP 1 week after her last period in march and has since had 2 periods. Negative urine test.She is on the mini pill and I explained the importance of taking the pill at the same time daily and not missing any doses. Taking the ill 1 week after her last period likely threw off her cycle and caused breakthrou gh bleeding. her body will adjust within the next month or 2. will call with results of serum Generalize d anxiety disorder 53556642 F41.1 [id number] Kevyn Mcdonough MD Main Office [address] [address] [facility] [facility] [place] [address] 06/25/2021 13:24:46 06/25/2021 14:14:58 Adult health examination 305722469 Z00.00 Will update immunizati on status and screen based on risk factors. Regular dental care, periodic eye examinatio ns, and safety measures advised. Distracted driving discussed. Needs infl uenza immunization 790860606 Z23 Recurrent major depressive episodes, moderate 872624856 F33.1 doing well off meds. Anxiety 20979772 F41.9 doing well off meds [facility] ion care management 280719467 Z30.9 she is currently on mini pill and does not feel it is working well for her. She was on previously and had decreased sex drive. Will try lower dose OCP. Take at same time daily, do not miss doses or double doses. Exposure t o sexually transmissible disorder 583553245 Z20.2 Administra tion of viral vaccine 62116661 Z23 Screening for malignant neoplasm of cervix 521873656 Z12.4 due for screening. [id number] Kevyn Mcdonough MD [facility] [address] [place] [address] [place] [address] 11/20/2021 07:57:39 11/20/2021 14:52:26 Generalized anxiety disorder 28660567 F41.1 CUBA- 12/21. using THC products, she notes she wants to get a medical card. Does not want to re-start meds. Moderate r ecurrent major depression 07607238 F33.1 PHQ-9 . She is very nervous to re-start a med as most recent side effects were very bad. She feels like she is using so much energy at work trying to be normal and happy but her efforts are not cutting it. [id number] Gonzalo Mercado MD [facility] [address] [place] [address] 04/11/2022 13:06:35 04/11/2022 16:26:49 Fever 563303800 R50.9 This is unusual and has not recurred. Difficult to say if infectious illness is evolving of if possibly relate to onset of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
--- OUTSIDE RECORDS SUMMARY | 2025-06-01 10:07 | XMS_ITS | Patient Health Record ---
Author Organization [facility] Address [address] [place] [address] Care Team Providers Care Medical Assembler Name Role Phone CAMRYN CYR Primary Care Provider Unavailable Bhavana Louie Unavailable [phone] Allergies Allergen (clinical drug ingredient) Drug/Non Drug [...] W/U Status Risk Notes Problem Asthma (disorder) (864969810) Asthma, unspecified, unspecified status (493.90) Active confirmed Major Problem Dysmenorrhea (855998141) Dysmenorrhea (625.3) Active confirmed Diag Problem Light and infrequent menstruation (080697249) Scanty or infrequent menstruation (626.1) Active confirmed Major Problem Gynecological examination normal (183716264500145) Routine gynecological examination (V72.31) Active confirmed Major Plan Of Treatment Pending Test Test Name Order Date Urinalysis 06/11/2017 THIN PREP, HPV IF ASCUS (21-29YR) 2017 Insurance Providers Payer Name Payer Address Payer Phone Subscriber Number Group Number Insured Name Patient Relationship to Insured Coverage Start Date Coverage End Date [facility] [address] [place] [address] [id number] CJ ROGER Spouse - patient is the spouse of the insured Medical (General) History Medical History History ICD Code Degenerative Spine Disease Scanty or infrequent menstruation 626.1 Dysmenorrhea, unspecified N94.6 Other asthma J45.998 Oligomenorrhea, unspecified N91.5 Surgical History Surgery Date(Month/Year) [facility] Teeth Adenoidectomy Eear Tubes Hospitalization History Reason Date(Month/Year) See Surgical Hx
== END 2025-06-01 09:03 | disposition home or self-care (01) ==
LOC: HO.US 09:02
PROVIDERS: PCP Student in an Organized Health Care Education/Training Program; Visit Provider Obstetrics & Gynecology
DX: N93.9 Abnormal uterine and vaginal bleeding, unspecified (principal)
CPT/HCPCS: 76830; 76856

== ENCOUNTER → 2025-06-01 09:04 | Outpatient (BNV) | payer OTHER, SELFPAY | PROVIDERS: PCP Student in an Organized Health Care Education/Training Program; Visit Provider Radiology Diagnostic Radiology | DX: N83.291 Other ovarian cyst, right side (principal); N83.292 Other ovarian cyst, left side; N93.9 Abnormal uterine and vaginal bleeding, unspecified | CPT/HCPCS: 76830; 76856 ==

== ENCOUNTER 2025-06-08 15:45 | Outpatient (REF) | payer OTHER, SELFPAY ==
--- OUTSIDE RECORDS SUMMARY | 2025-06-08 18:48 | XMS_ITS | Clinical Summary ---
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 [facility] site: [facility] ObGyn: [address] [place] [address] ([phone]) 2. Delivery site: [facility] 3. Mobile Mommas: No 4. 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 For example, director child abuse therapy or elderly care for an older adult? [...] Date Recorded What is your living situation? 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 Not on file [...] 2008 Cervical Cancer Screening: Pap Smear 2010 HPV Vaccines (1 - 3-dose SCDM series) 2016 Cholesterol Screening (Lipid Panel) 10/24/2024 COVID-19 Vaccine ( season) 2025 06/04/2021, 11/03/2020, 10/05/2020 Influenza Vaccine (#1) 2025 , 06/19/2020, 09/02/2012, Additional history exists Social Influencers of Health Screening 12/01/2025 12/01/2024 DTaP,Tdap,and Td Vaccines (9 - Td or Tdap) 06/25/2031 06/25/2021, 12/09/2010, 04/03/1999, Additional history exists RSV Immunization Adult Patients (1 - 1-dose 75+ series) 2064 HIB Vaccines Completed 07/03/1990 Varicella Vaccines Aged Out 08/03/1991 No longer eligible based on patient's age to complete this topic IPV Vaccines Completed 06/03/1993, 0308/1990, 1989, Additional history exists Hepatitis B Vaccines Completed 05/03/2000, 08/03/1999, 04/03/1999 MMR Vaccines Completed 05/03/2000, 07/03/1990 HIV Screening Completed 12/01/2024 Hepatitis C Screening Completed 12/01/2024 Depression Screening Completed 12/06/2024 Hepatitis A Vaccines Aged Out No long [...] LAB CHEMISTRY METHOD 12/01/2024 7:06 PM EDT [facility] Blood Venous blood specimen / Unknown Venipuncture / Unknown 12/01/2024 3:41 PM EDT 12/01/2024 3:41 PM EDT Rosina SINGH LAB BLOOD ORDERABLES Final Result [facility] [address] [place] [address], [place] [phone] * HIV 1,2 antibody, p24 antigen with reflex to differentiation (12/01/2024 3:41 PM EDT) Pathologist [facility] HIV Combo AB/AG Negative Negative LAB CHEMISTRY METHOD 12/01/2024 7:06 PM EDT [facility] Blood Venous blood specimen / Unknown Venipuncture / Unknown 12/01/2024 3:41 PM EDT 12/01/2024 3:41 PM EDT Narrative [facility] - 12/01/2024 7:06 PM EDT This assay is a 4th generation assay allowing for earlier detection of HIV infection by detecting the presence of the HIV-1 p24 antigen as well as the traditional antibodies to HIV type 1 (including group O) and type 2. Use of a 4th generation assay is the current CDC recommendation for HIV screening. Rosina David [facility] BLOOD ORDERABLES Final Result [facility] [address] [place] [address], from Last 3 Months or Most Recently Relevant to Health Maintenance Insurance [facility] [address] [place] [address] Care Teams Fruit Loader Machine Operator Relationship Specialty Start Date End Date Aye Juarez PA [address] [facility] [address] [place] [address] PCP - General 12/05/24
== END 2025-06-08 15:46 | disposition home or self-care (01) ==
LOC: HO.LNP 15:45
PROVIDERS: PCP Student in an Organized Health Care Education/Training Program; Visit Provider Obstetrics & Gynecology
DX: N83.291 Other ovarian cyst, right side (principal); N83.292 Other ovarian cyst, left side; Z32.02 Encounter for pregnancy test, result negative; N93.9 Abnormal uterine and vaginal bleeding, unspecified
CPT/HCPCS: 58100; 81025; 88305

== ENCOUNTER 2025-06-08 15:45 | Outpatient (AMB) | payer OTHER, SELFPAY ==
--- NOTE | 2025-06-08 16:03 | A.OFFVIS_ITS ---
Vital Signs 06/08/25 16:10 Height 5 ft 7 in Weight 160 lb BMI 25.1 BP 122/84 Intake Visit Reasons: u/s results ? EMB Hotel [facility] Motel Room Service Supervisor Required: No Information Interpreted: non-clinical & clinical Degreaser Operator: Degreaser Operator Present (Celeste WHYTE) Accompanied by: Self / Same As Patient Allergies methocarbamol (From Robaxin) Adverse Reaction (Verified 06/08/25 16:11) Muscle cramps Is last menstrual period known: Yes Last menstrual period: 06/06/25 HPI Comments Details: Presenting for EMB and pelvic ultrasound follow-up which showed the following: Uterus 8.3 x 3.3 x 4.3 cm. Endometrium 2 mm. No significant free fluid. 4 mm and 5 mm uterine fibroids. Right ovary 3.8 x 3.1 x 3.2 cm. 2.2 cm septated cyst. Left ovary 4.1 x 3.5 x 3.3 cm. 2.9 cm septated cyst with internal echoes. Recommend bilateral ovarian follow-up 1-2 months. 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 Sexual orientation: Straight/Heterosexual Gender identity: Female Female Reproductive History Menstrual Age of Menarche: 11 Date of last menstrual period: 06/06/25 Review of Systems Const All systems reviewed & are unremarkable except as noted in HPI and below Reports as per HPI and Reports no additional complaints GI Reports no additional complaints Reports no additional complaints Office Procedures Endometrial Biopsy Details: The patient was counseled regarding the indication and benefits of endometrial sampling to rule out endometrial pathology including not limited to endometrial hyperplasia or endometrial cancer and others; The alternatives (Either do nothing vs. hysteroscopy D&C) & the risks were discussed with the patient including but not limited: pain, uterine perforation, bleeding, infection, possible injury to bladder, bowel, ureter, possible need for blood transfusion with all its possible risks. The patient verbalized understanding all questions answered and signed consent. Urine test done in the office was negative The patient was placed into the dorsal lithotomy position; a speculum was inserted in the vagina. Using aseptic technique for the procedure, the cervix was cleansed with Betadine. The anterior lip of the cervix was grasped with a single tooth tenaculum. The uterus was sounded to 7 cm with a 4 mm Pipelle was used. Tissues samples were obtained and placed in formalin, in a patient labeled container and sent to the pathology department. At the end of the procedure, there was minimal bleeding noted The patient tolerated the procedure well and was discharged in good condition with the following instructions: Nothing in the vagina until the bleeding stops. No sex until the bleeding stops, to call if any of the following occurs: fever (>100.4), flu-like symptoms, abdominal pain, heavy bleeding, four smelling vaginal discharge. The patient was instructed to schedule a Follow up appointment in 2 weeks to discuss pathology results of the biopsy and treatment options. This note was generated with a voice recognition program. Some errors may have been overlooked during the review of this note. Sometimes these errors may affect the content or meaning of a given sentence. [id number] Biopsy Results AMB Test Urine AMB Test Urine Negative Last Edit by Celeste Alfaro CMA on 16:12 Assessment & Plan Assessment & Plan (1) Abnormal uterine bleeding (AUB): Code(s): N93.9 - Abnormal uterine and vaginal bleeding, unspecified Category: Medical Plan: EMB done, see procedure (2) Complex cyst of both ovaries: Code(s): N83.291 - Other ovarian cyst, right side; N83.292 - Other ovarian cyst, left side Category: Medical Plan: Discussed with the patient the results of the ultrasound showing bilateral complex cyst, recommended pelvic MRI. Pelvic MRI with contrast ordered, instructions given the patient to schedule an MRI and a follow-up appointment within 2 weeks. All questions answered, the patient verbalized understanding. Orders: Orders MR pelvis wo/w con Today N83.299 - Other ovarian cyst, unspecified side AMB HCG Urine Test Today Z32.02 - Encounter for test, result negative AMB Endometrial Biopsy Today N93.9 - Abnormal uterine and vaginal bleeding, unspecified Coding Level of Care Code Est Pt Level 3 (18738) Procedure Only Diagnoses Abnormal uterine bleeding (AUB) N93.9 Complex cyst of both ovaries N83.291; N83.292 CPT Codes Endometrial Biopsy - CPT: 77335-[id number] Biopsy ([id number])
[2025-06-08 16:10] VITALS: BP 122/84; BMI 25.1
--- OUTSIDE RECORDS SUMMARY | 2025-06-08 18:30 | XMS_ITS | Data Portability ---
Author Organization [facility] [place], Main Office Address [address] [place] [address] [place] [phone] Care Team Providers Care Exhaust Worker Name Role Phone EUSEBIO HONG Electrologist VITALY CUEVA Primary Care Provider Unavailabl e [...] patient's home Patient was located in the [facility]. Provider was located in the office. No [...] panel, serum 2024 025 [email or web address] [facility], [address], [place] , [facility] [place], [address], 5 15:19:11 CMP, serum or plasma 2024 025 [email or web address] [facility], [address], [address], [place], [address], 5 15:19:11 CBC w/ auto diff 2024 025 SOM [facility] (Centralized Electronic Ordering - All Locations), Patient Can Go To The Location Of Their Choice, 5 11:58:55 TSH + free T4, serum 2024 025 [email or web address] [facility] (Centralized Electronic Ordering - All Locations), Patient Can Go To The Location Of Their Choice, [address] 5 15:19:11 Referral psychia trist referra l - pt is looking to get a formal evaluat ion for ADHD 2024 025 [email or web address] Vaibhav Sun MD, [address], [facility] [address], [place], [address], 5 10:21:46 gynecol ogist referra l - CT finding s of rupture d adnexal cysts with trace free pelvic fluid [email or web address] [place] [address] [facility] [employer], [address] [place] [address], [address], [place], [address], 5 09:38:40 gastroe nterolo gist referra l - was seen at [facility] for hemorrh oids. rec. referra l to GI 2024 025 jasmin Howard MD, [address] [facility], [place], [address], 5 10:41:56 Procedures None recorde d. Surgeries None recorde d. Imaging XR, hip + pelvis, bilater al - left hip pain worse since 04/01, diff walking , laying on it, sleepin g etc. radiate s into her groin 2023 024 [facility] [address] [place], [address], 4 09:31:01 XR, lumbar spine - low back pain into left hip and groin 2023 024 [facility], [address] [place], [address], 4 17:13:38 Medication Orders albuter ol sulfate HFA 90 mcg/act uation aerosol inhaler [address]/Pharmacy #[id number], [address] [place], [address], 5 15:19:11 Symbico rt 160 mcg-4.5 mcg/act uation HFA aerosol inhaler [address]/Pharmacy #1157, [address] [place], [address], 5 15:19:11 Flonase Allergy Relief 50 mcg/act uation nasal spray,s uspensi on 2024 025 [address] [place], [address], 5 15:19:11 tizanid ine 4 mg tablet 2024 025 [facility]/Pharmacy #1157, [address] [place], [address], 5 15:00:06 meloxic am 15 mg tablet 2023 025 [facility], [address] [place], [address], 5 09:57:56 cyclobe nzaprin e 10 mg tablet 2023 025 [facility]/Pharmacy #1157, [address] [place], [address], 5 09:57:38 Patient TargetsNo targets recorded. Patient Instructions Encounter Date Encounter Id Patient Instructions Last Modified By Organization Details Last Modified Time 04/21/2024 [id number] sciatica: exercises [email or web address] Not available 04/21/2024 15:06:06 sciatica: exercises [email or web address] Not available 04/21/2024 15:06:06 sciatica: care instructions [email or web address] Not available 04/21/2024 15:06:06 piriformis syndrome: exercises [email or web address] Not available 04/21/2024 15:06:06 piriformis syndrome: care instructions [email or web address] Not available 04/21/2024 15:06:06 To call or return for worsening or concerns [email or web address] Not available 04/21/2024 15:49:15 08/15/2024 [id number] hemorrhoids: care instructions Not available 08/15/2024 10:15:36 10/12/2024 [id number] To call or return for worsening or concerns [email or web address] Not available 10/12/2024 15:41:14 12/14/2024 [id number] At [facility] follow up visit, all current and discharge medications (OTC, herbal therapies, supplements) reviewed and reconciled with patient and or caregiver, including potential side effects, drug interactions, instructions, and the consequences of not taking medication. Reviewed potential barriers to medication adherence, such as side effects from medication or cost of medication. 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 rec. referral to GI Referring Physician: Family [facility], Encounter Date: 08/15/2024 Electrologist Referral for Cy st of ovary CT [...] HCG quant 1562 mIU/m L Not Available [facility] [address] [place], [address], 12/05/2024 12:41:52 12/06/19 25 12/05/2024 HCG, QUANT ITATI VE note See Report [facility], [address], [place], [place] [address] [address], [address], 12/05/2024 12:41:52 12/02/1912/01/2024 CBC WITH AUTO DIFFE RENTI AL WBC 11.7 K/mcL 4.8-10 .8 high Not Available [address], [address], 12/01/2024 17:46:12 12/02/19 25 12/01/2024 CBC WITH AUTO DIFFE RENTI AL RBC 4.70 M/mcL 3.80-4 .[address], [address], 12/01/2024 17:46:12 12/02/19 25 12/01/2024 CBC WITH AUTO DIFFE RENTI AL hemoglobin 15.0 g/dL 11.5-1 [address], [address], 12/01/2024 17:46:12 12/02/19 25 12/01/2024 CBC WITH AUTO DIFFE RENTI AL hematocrit 43.5 % 35.0-4 [address], [address], 12/01/2024 17:46:12 12/02/19 25 12/01/2024 CBC WITH AUTO DIFFE RENTI AL MCV 91.8 fL 79.0-9 8[address], [address], 12/01/2024 17:46:12 12/02/19 25 12/01/2024 CBC WITH AUTO DIFFE RENTI AL MCH 31.6 pcg 27.0-3 2[address], [address], 12/01/2024 17:46:12 12/02/1912/01/2024 CBC WITH AUTO DIFFE RENTI AL MCHC 34.5 g/dL 32.0-3 [address], [address], 12/01/2024 17:46:12 12/02/19 25 12/01/2024 CBC WITH AUTO DIFFE RENTI AL RDW 13.4 % 11.0-1 [address], [address], 12/01/2024 17:46:12 12/02/1912/01/2024 CBC WITH AUTO DIFFE RENTI AL platelets 488 K/mcL 130-40 0 high Not Available [address], [address], 12/01/2024 17:46:12 12/02/19 25 12/01/2024 CBC WITH AUTO DIFFE RENTI AL MPV 8.8 fL 7.0-11 .[address], [address], 12/01/2024 17:46:12 12/02/1912/01/2024 CBC WITH AUTO DIFFE RENTI AL NRBC 0.0 % <1.0 Not Available [address], [address], 12/01/2024 17:46:12 12/02/19 25 12/01/2024 CBC WITH AUTO DIFFE RENTI AL NRBC absolute 0.00 K/mcL <0.[address], [address], 12/01/2024 17:46:12 12/02/19 25 12/01/2024 CBC WITH AUTO DIFFE RENTI AL neutrophils relative 64.2 % Not Available [address], [address], 12/01/2024 17:46:12 12/02/1912/01/2024 CBC WITH AUTO DIFFE RENTI AL lymphocytes relative 19.7 % Not Available [address], [address], 12/01/2024 17:46:12 12/02/19 25 12/01/2024 CBC WITH AUTO DIFFE RENTI AL monocytes relative 9.1 % Not Available [address], [address], 12/01/2024 17:46:12 12/02/1912/01/2024 CBC WITH AUTO DIFFE RENTI AL eosinophils relative 6.1 % Not Available [address], [address], 12/01/2024 17:46:12 12/02/19 25 12/01/2024 CBC WITH AUTO DIFFE RENTI AL basophils relative 0.6 % Not Available [address], [address], 12/01/2024 17:46:12 12/02/19 25 12/01/2024 CBC WITH AUTO DIFFE RENTI AL immature granulocytes relative 0.3 % Not Available [address], [address], 12/01/2024 17:46:12 12/02/19 25 12/01/2024 CBC WITH AUTO DIFFE RENTI AL neutrophils absolute 7.52 K/mcL 1.50-7 .00 high Not Available [address], [address], 12/01/2024 17:46:12 12/02/19 25 12/01/2024 CBC WITH AUTO DIFFE RENTI AL lymphocytes absolute 2.31 K/mcL 1.00-5 .[address], [address], 12/01/2024 17:46:12 12/02/19 25 12/01/2024 CBC WITH AUTO DIFFE RENTI AL monocytes absolute 1.07 K/mcL 0.20-1 .00 high Not Available [address], [address], 12/01/2024 17:46:12 12/02/19 25 12/01/2024 CBC WITH AUTO DIFFE RENTI AL eosinophils absolute 0.71 K/mcL 0.00-0 .50 high Not Available [address], [address], 12/01/2024 17:46:12 12/02/19 25 12/01/2024 CBC WITH AUTO DIFFE RENTI AL basophils absolute 0.07 K/mcL 0.00-0 .[address], [address], 12/01/2024 17:46:12 12/02/19 25 12/01/2024 CBC WITH AUTO DIFFE RENTI AL immature granulocytes absolute 0.04 K/mcL 0.00-0 .03 high Not Available [address], [address], 12/01/2024 17:46:12 12/02/1912/01/2024 CBC WITH AUTO DIFFE RENTI AL note See Report high [facility], [address], [place], [place] [address] [address], [address], 12/01/2024 17:46:12 12/02/1912/01/2024 HEPAT ITIS B SURFA CE ANTIG EN WITH REFLE X TO CONFI RMATI ON hepatitis B surface Ag Negati ve negati ve Not Available [address], [address], 12/01/2024 18:39:01 12/02/19 25 12/01/2024 HEPAT ITIS B SURFA CE ANTIG EN WITH REFLE X TO CONFI RMATI ON note See Report [facility], [address], [place], [facility] [place] [address] [address], [address], 12/01/2024 18:39:01 12/02/19 25 12/01/2024 RUBEL LA ANTIB ALESHIA IGG rubella IgG quant 44.8 I_uni t/mL >=10.[address], [address], 12/01/2024 18:39:09 12/02/19 25 12/01/2024 RUBEL LA ANTIB ALESHIA IGG rubella IgG antibody interp Positi ve positi ve Not Available [address], [address], 12/01/2024 18:39:09 12/02/19 25 12/01/2024 RUBEL LA ANTIB ALESHIA IGG note See Report [facility], [address], [place], [facility] [place] [address] [address], [address], 12/01/2024 18:39:09 12/02/19 25 12/01/2024 HIV 1, 2 ANTIB ALESHIA, P24 ANTIG EN WITH REFLE X TO DIFFE RENTI ATION HIV combo Ab/Ag Negati ve negati ve Not Available [address], [address], 12/01/2024 19:10:04 12/02/19 25 12/01/2024 HIV 1, 2 ANTIB ALESHIA, P24 ANTIG EN WITH REFLE X TO DIFFE RENTI ATION note See Report [facility], [address], [place], [facility] [place] [address] [address], [address], 12/01/2024 19:10:04 12/02/19 25 12/01/2024 HEPAT ITIS C ANTIB ALESHIA hepatitis C antibody Negati ve negati ve Not Available [address], [address], 12/01/2024 19:10:12 12/02/19 25 12/01/2024 HEPAT ITIS C ANTIB ALESHIA note See Report [facility], [address], [place], [facility] [place] [address] [address], [address], 12/01/2024 19:10:12 12/02/19 25 12/01/2024 DRUG ABUSE SCREE N EXPAN DED WITH REFLE X CONFI RMATI ON, URINE amphetamine screen, ur Negati ve negati ve Certa in OTC medic ation s conta ining ephed rine, pheny lephr ine, pseud oephe drine and pheny lprop anola mine can cause false posit margoth resul ts. Not Available [address], [address], 12/01/2024 19:32:03 12/02/19 25 12/01/2024 DRUG ABUSE SCREE N EXPAN DED WITH REFLE X CONFI RMATI ON, URINE barbiturate screen, ur Negati ve negati ve Not Available [address], [address], 12/01/2024 19:32:03 12/02/19 25 12/01/2024 DRUG ABUSE SCREE N EXPAN DED WITH REFLE X CONFI RMATI ON, URINE benzodiazepi ne screen, ur Negati ve negati ve Not Available [address], [address], 12/01/2024 19:32:03 12/02/19 25 12/01/2024 DRUG ABUSE SCREE N EXPAN DED WITH REFLE X CONFI RMATI ON, URINE cocaine screen, ur Negati ve negati ve Not Available [address], [address], 12/01/2024 19:32:03 12/02/19 25 12/01/2024 DRUG ABUSE SCREE N EXPAN DED WITH REFLE X CONFI RMATI ON, URINE opiate screen, ur Negati ve negati ve Not Available [address], [address], 12/01/2024 19:32:03 12/02/19 25 12/01/2024 DRUG ABUSE SCREE N EXPAN DED WITH REFLE X CONFI RMATI ON, URINE cannabinoid (THC) screen, ur Positi ve negati ve abnormal Speci mens from patie nts takin g panto prazo le sodiu m (Prot lizette) have been shown to produ ce false posit margoth resul ts. Not Available [address], [address], 12/01/2024 19:32:03 12/02/19 25 12/01/2024 DRUG ABUSE SCREE N EXPAN DED WITH REFLE X CONFI RMATI ON, URINE fentanyl, ur Negati ve negati ve Not Available [address], [address], 12/01/2024 19:32:03 12/02/19 25 12/01/2024 DRUG ABUSE SCREE N EXPAN DED WITH REFLE X CONFI RMATI ON, URINE oxycodone screen, ur Negati ve negati ve Not Available [address], [address], 12/01/2024 19:32:03 12/02/19 25 12/01/2024 DRUG ABUSE SCREE N EXPAN DED WITH REFLE X CONFI RMATI ON, URINE note See Report [facility], [address], [place], [facility] [place] [address] [address], [address], 12/01/2024 19:32:03 12/02/19 25 12/01/2024 TREPO NEMA PALLI DUM ANTIB ALESHIA WITH REFLE X TO RPR AND PARTI CURT AGGLU TINAT ION T. pallidum antibodies Negati ve negati ve Not Available [address], [address], 12/01/2024 20:38:13 12/02/19 25 12/01/2024 TREPO NEMA PALLI DUM ANTIB ALESHIA WITH REFLE X TO RPR AND PARTI CURT AGGLU TINAT ION note See Report [facility], [address], [place], [facility] [place] [address] [address], [address], 12/01/2024 20:38:13 12/02/19 25 12/01/2024 TYPE AND SCREE N ABO group B Not Available [address], [address], 12/02/2024 09:53:15 12/02/19 25 12/01/2024 TYPE AND SCREE N Rh type Positi ve Not Available [address], [address], 12/02/2024 09:53:15 12/02/19 25 12/01/2024 TYPE AND SCREE N antibody screen Negati ve Not Available [address], [address], 12/02/2024 09:53:15 12/02/19 25 12/01/2024 TYPE AND SCREE N note See Report [facility], [address], [place], [facility] [place] [address] [address], [address], 12/02/2024 09:53:15 12/02/19 25 12/01/2024 VARIC REGLA LENASTE R ANTIB ALESHIA IGG varicella IgG Positi ve positi ve Not Available [address], [address], 12/02/2024 11:01:34 12/02/19 25 12/01/2024 VARIC REGLA ZOSTE R ANTIB ALESHIA IGG varicella zoster IgG 12.90 S/co >=1.[address], [address], 12/02/2024 11:01:34 12/02/19 25 12/01/2024 VARIC REGLA ZOSTE R ANTIB ALESHIA IGG note See Report [facility], [address], [facility] [place] [address] [address], [address], 12/02/2024 11:01:34 12/02/19 25 12/01/2024 CULTU RE URINE .note See Note Origi nal Order ing Provi rafa: ARTHUR Marcial [facility] - [facility] atory - [address], [facility] [place] [address] [address] Available [address], [address], 12/02/2024 14:43:33 12/02/19 25 12/01/2024 CULTU RE URINE culture, urine <10,00 0 CFU/mL gram positi ve cocci, insign ifican t count, no furthe r workup Not Available [address], [address], 12/02/2024 14:43:33 04/21/20 24 04/21/2024 XR, lumba [...] change limite d to L5-S1. . WSN: [id number] Orderi ng Physic lola: Arturo Bunch Dictat ed By: Ryan Knowles MD Dictat ed Date/T maria guadalupe: 5:10 pm Review ed By: Ryan Knowles MD Signed By: Ryan Knowles MD Signed Date/T maria guadalupe: 5:10 pm Transc ribed By: MONAE Transc ribed Date/T maria guadalupe: 5:09 pm Patien t Class: Outpat ient [facility] (Outpt Imaging) [address] [place], [address], 04/22/2024 11:04:10 04/22/20 24 04/21/2024 xr hip bilat 3-4 views w/AP pelvi s XR Hip Bilat 3-4 Views W/AP Pelvis Reason : pain COMPAR DANA: None. FINDIN GS: There is no fractu re or disloc ation. Normal hips and sacroi liac joints . IMPRES ELISA: Normal . I have person ally review ed the images and I agree with this report . WSN: [id number] Orderi ng Physic lola: Arturo Bunch Dictat ed By: Deann Gannon MD Dictat ed Date/T maria guadalupe: 2:04 pm Review ed By: Nata Anderson MD Signed By: Nata Anderson MD Signed Date/T maria guadalupe: 2:09 pm Transc ribed By: MONAE Transc ribed Date/T maria guadalupe: 1:45 pm Patien t Class: Outpat ient [facility] (Outpt Imaging) [address] , [place], [address], 04/22/2024 15:45:52 08/09/19 25 08/09/2024 CT, abdom en + pelvi s, w/ contr ast No observ ation record ed. [facility] (Medical Records) [address] [place] [address], [address], 08/10/2024 10:00:15 06/01/20 25 06/01/2025 imagi ng/di agnos tic resul t No observ ation record ed. [email or web address] [facility] (Medical Records) [address] [place], [address], 06/02/2025 10:37:35 Result Notes Documentation Provider Name and Address [...] 3. Degenerative change limited to L5-S1.. WSN: [id number] Ordering Physician: Donny Bunch Dictated By: Ryan Knowles MD Dictated Date/Time: 04/21/24 5:10 pm Reviewed By: Ryan Knowles MD Signed By: Ryan Knowles MD Signed Date/Time: 04/21/24 5:10 pm Transcribed By: MONAE Transcribed Date/Time: 04/21/24 5:09 pm Patient Class: Outpatient YONATHAN Bailon [address] [address], [place], [address], [facility] 04/22/2024 10:50:33 Problems Name Problem SNOMED Code Status Onset Date Resolution Date Notes Provider Name and Address Organization Details Recorded Time Acute pharyngi tis 350262815 Completed 07/14/2019 Galina Terry [place] [facility] 9 11:14:58 Allergic rhinitis 81105540 Active Donny Steward [address] [address], [place], [address], [facility] 6 09:45:34 Asthma 573293388 Active Donny Steward [address] [address], [place], [address], [facility] 6 09:45:34 Acute asthma 301373765 Active Donny Steward [address] [address], [place], [address], [facility] 6 09:45:34 Dysmenor rebeca 580641312 Active Donny Steward [address] [address], [place], [address], [facility] 6 09:45:34 Malaise and fatigue 814568184 Marvin Steward [facility] [address] [place] [address], [place], [address], [facility] 6 09:45:34 Low back pain 103922143 Active Donny Steward [address] [address], [place], [address], [facility] 6 09:45:34 Sprains and strains of joints and adjacent muscles Active Donny Steward [facility] [address] [place] [address], [place], [address], [facility] 6 09:45:34 Patient status finding [id number] Completed 07/14/2019 ANABEL Gottlieb, [facility] [place] 9 11:15:13 Otitis media 64825326 Completed 05/15/2020 ANABEL Haque, [facility] [place] 0 12:55:32 Pain in thoracic spine 605967121 Active Donny Steward, [facility] [address], [facility] [place], [address], [facility] 6 09:45:34 Pneumoni a 355340167 Active Donny Steward [facility] [address], [facility] [place], [address], [facility] 6 09:45:34 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 Donny Steward [address], [facility] [place], [address], [facility] 6 09:45:34 Tinnitus 22202436 Active Donny Steward [address], [facility] [place], [address], [facility] 6 09:45:34 Allergy Active Donny Steward [address], [place], [address], [facility] 6 09:45:34 Cough 29424246 Completed 07/14/2019 ANABEL Gottlieb, [facility] [place] 9 11:15:04 Upper respirat ory infectio n 22365495 Completed 07/14/2019 ANABEL Gottlieb, [facility] [place] 9 11:15:26 Fatigue 78734165 Active Donny Steward [address], [place], [address], [facility] 6 09:45:34 Amenorrh ea 53603939 Active Donny Steward, [address], [place], [address], [facility] 6 09:45:34 Degenera tion of lumbar interver tebral disc 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 Active Donny Steward, [address], [place], [address], [facility] 6 09:45:34 Snoring 68373987 Active Donny Steward, [address], [place], [address], [facility] 6 09:45:34 Administ ration of bacteria l and viral vaccine Completed 201002/14/2014 RECORDED 12/10/19 11 9:51AM BY CAMRYN Bello MD, OFFICE VISIT Rajatgulshan Steward, [address], [place], [address], [facility] 6 09:45:34 Administ ration of bacteria l and viral vaccine Completed 201003/09/2014 RECORDED 12/10/19 11 9:51AM BY CAMRYN Bello MD, OFFICE VISIT Donny Steward, [address], [place], [address], [facility] 6 09:45:34 Administ ration of bacteria l and viral vaccine Completed 201003/10/2014 RECORDED 12/10/19 11 9:51AM BY CAMRYN Bello MD, OFFICE VISIT Rajatgulshan Steward, [address], [place], [address], [facility] 6 09:45:34 Dysfunct ional uterine bleeding Completed 201202/14/2014 RECORDED 08/30/19 13 2:03PM BY GILLES LAZARO MA, LUISA ON/ADDRANJITH Steward, [facility] [address] [facility] [address], [place], [address], [facility] 6 09:45:34 Acute sinusiti s 59721003 Completed 201202/14/2014 RECORDED 08/30/19 13 2:03PM BY GILLES LAZARO MA, LUISA ON/SHALONDA Steward, [facility] [address] [facility] [address], [place], [address], [facility] 6 09:45:34 Acute upper respirat ory infectio n 12604812 Completed 201202/14/2014 IMPRESSI ON: LUNGS WITH WHEEZES AND CRACKLES THROUGHO UT. WILL START ON ABX AND PREDNISO NE. CXR TODAY. F/U NEXT WEEK FOR RE-EVAL, SOONER PRN IF SXS WORSEN IN THE INTERIM. WORK NOTE GIVEN.; RECORDED 08/30/19 13 2:03PM BY GILLES LAZARO MA, LUISA ON/SHALONDA Steward, [facility] [address] [facility] [address], [place], [address], [facility] 6 09:45:34 Toxic effect of venom 02414338 Completed 201202/14/2014 IMPRESSI ON: PT TO SQUILGEER AND CARRY WITH SHANDA, KNOWS HOW TO USE IT; RECORDED 08/30/19 13 2:03PM BY GILLES LAZARO MA, ANNOTATI ON/SHALONDA Steward, [facility] [address] [facility] [address], [place], [address], [facility] 6 09:45:34 Cough 38570406 Completed 201202/14/2014 IMPRESSI ON: SOUNDS LIKE ALLERGIE S VS URI TRIGERRI NG ASTHMA SYMPTOMS . WITH FEVER MOST LIKELY THE LATTER; RECORDED 08/30/19 13 2:03PM BY GILLES LAZARO MA, LUISA ON/ADDEN DUM Galina Terry MA null, [facility] [place] 9 11:15:04 Otalgia 27696395 Completed 201202/14/2014 IMPRESSI ON: FROM EFFUSION FORM ALLERGIE S TX BELOW; RECORDED 08/30/19 13 2:02PM BY GILLES LAZARO MA, LUISA ON/ADDEN DUM Donny Steward, [facility] [address], [place], [address], [facility] 6 09:45:34 Well child 612586055 Completed 201202/14/2014 RECORDED 08/30/19 13 2:03PM BY GILLES LAZARO MA, LUISA ON/ADDEN DUM Donny Steward, [facility] [address], [place], [address], [facility] 6 09:45:34 Dysfunct ional uterine bleeding Completed 201203/09/2014 RECORDED 08/30/19 13 2:03PM BY GILLES LAZARO MA, LUISA ON/ADDEN DUM Donny Steward, [facility] [address], [place], [address], [facility] 6 09:45:34 Acute sinusiti s 65589165 Completed 201203/09/2014 RECORDED 08/30/19 13 2:03PM BY GILLES ALZARO MA, LUISA ON/ADDEN DUM Donny Steward, [facility] [address], [place], [address], [facility] 6 09:45:34 Acute upper respirat ory infectio n 16456612 Completed 201203/09/2014 IMPRESSI ON: LUNGS WITH WHEEZES AND CRACKLES THROUGHO UT. WILL START ON ABX AND PREDNISO NE. CXR TODAY. F/U NEXT WEEK FOR RE-EVAL, SOONER PRN IF SXS WORSEN IN THE INTERIM. WORK NOTE GIVEN.; RECORDED 08/30/19 13 2:03PM BY GILLES LAZARO MA, LUISA ON/ADDRANJITH Steward, [facility] [address] [facility] [address], [place], [phone], [facility] 6 09:45:34 Toxic effect of venom [id number] Completed 201203/09/2014 IMPRESSI ON: PT TO SQUILGEER AND CARRY WITH SHANDA, KNOWS HOW TO USE IT; RECORDED 08/30/19 13 2:03PM BY GILLES LAZARO MA, LUISA ON/ADDRANJITH Steward, [facility] [address] [facility] [address], [place], [phone], [place] [facility] 6 09:45:34 Cough [id number] Completed 201203/09/2014 IMPRESSI ON: SOUNDS LIKE ALLERGIE S VS URI TRIGERRI NG ASTHMA SYMPTOMS . WITH FEVER MOST LIKELY THE LATTER; RECORDED 08/30/19 13 2:03PM BY GILLES LAZARO MA, LUISA ON/SHALONDA Terry MA null, [facility] [place] 9 11:15:04 Otalgia [id number] Completed 201203/09/2014 IMPRESSI ON: FROM EFFUSION FORM ALLERGIE S TX BELOW; RECORDED 08/30/19 13 2:02PM BY GILLES LAZARO MA, LUISA ON/SHALONDA Steward, [facility] [address] [facility] [address], [place], [address], [facility] 6 09:45:34 Well child [id number] Completed 201203/09/2014 RECORDED 08/30/19 13 2:03PM BY GILLES LAZARO MA, ANNOTATI ON/SHALONDA Steward, [facility] [address] [facility] [address], [place], [address], [facility] 6 09:45:34 Dysfunct ional uterine bleeding Completed 201203/10/2014 RECORDED 08/30/19 13 2:03PM BY GILLES LAZARO MA, LUISA ON/SHALONDA Steward, [facility] [address] [facility] [address], [facility] [place], [facility] 6 09:45:34 Acute sinusiti s [id number] Completed 201203/10/2014 RECORDED 08/30/19 13 2:03PM BY GILLES LAZARO MA, LUISA ON/SHALONDA Steward, [facility] [address] [facility] [address], [place], [address], [facility] 6 09:45:34 Acute upper respirat ory infectio n [id number] Completed 201203/10/2014 IMPRESSI ON: LUNGS WITH WHEEZES AND CRACKLES THROUGHO UT. WILL START ON ABX AND PREDNISO NE. CXR TODAY. F/U NEXT WEEK FOR RE-EVAL, SOONER PRN IF SXS WORSEN IN THE INTERIM. WORK NOTE GIVEN.; RECORDED 08/30/19 13 2:03PM BY GILLES LAZARO MA, LUISA ON/SHALONDA Steward, [facility] [address] [facility] [address], [place], [address], [facility] 6 09:45:34 Toxic effect of venom [id number] Completed 201203/10/2014 IMPRESSI ON: PT TO SQUILGEER AND CARRY WITH SHANDA, KNOWS HOW TO USE IT; RECORDED 08/30/19 13 2:03PM BY GILLES LAZARO MA, LUISA GLOVER/SHALONDA Steward, [facility] [address] [facility] [address], [place], [address], [facility] 6 09:45:34 Cough [id number] Completed 201203/10/2014 IMPRESSI ON: SOUNDS LIKE ALLERGIE S VS URI TRIGERRI NG ASTHMA SYMPTOMS . WITH FEVER MOST LIKELY THE LATTER; RECORDED 08/30/19 13 2:03PM BY GILLES LAZARO MA, LUISA ON/ADDEN BAYRON Terry MA null, [facility] [place] 9 11:15:04 Otalgia [id number] Completed 201203/10/2014 IMPRESSI ON: FROM EFFUSION FORM ALLERGIE S TX BELOW; RECORDED 08/30/19 13 2:02PM BY GILLES LAZARO MA, LUISA ON/ADDEN DUM Donny Steward, [facility] [address] [facility] [address], [place], [address], [facility] 6 09:45:34 Well child [id number] Completed 201203/10/2014 RECORDED 08/30/19 13 2:03PM BY GILLES LAZARO MA, LUISA ON/ADDEN DUM Donny Steward, [facility] [address] [facility] [address], [place], [address], [facility] 6 09:45:34 Acute pharyngi tis [id number] Completed 201202/14/2014 IMPRESSI ON: SOUNDS VIRAL, AND SECONDAR Y TO POST NASAL DRIP. WILL R/O STREP. OTHERWIS E SUPPORTI VE TX ADVISED. CALL INB/WORS E.; RECORDED 09/02/19 13 3:50PM BY SONJA GRESHAM MA, LUISA ON/ADDRANJITH DUM Galina Terry MA null, [facility] [place] 9 11:14:58 Influenz a vaccine needed [id number] 06 Completed 201202/14/2014 RECORDED 09/02/19 13 3:59PM BY SONJA GRESHAM MA, OFFICE VISIT Donny Steward, [facility] [address] [facility] [address], [place], [address], [facility] 6 09:45:34 Acute laryngit is 6404504 Completed 201202/14/2014 IMPRESSI ON: SOOTHING LIQUIDS, WARM SALT WATER GARGLING ADVISED ALONG WITH VOICE REST.; RECORDED 09/02/19 13 3:50PM BY SONJA GRESHAM MA, ANNOTATI ON/ADDEN YONATHAN Jang [facility] [address], [place], [address], [facility] 6 09:45:34 Otitis media 66492497 Completed 201202/14/2014 IMPRESSI ON: CONTINU ABX, CALL IF NO IMPROVEM ENT OVER NEXT 7-10 DAYS.; RECORDED 09/02/19 13 3:50PM BY SONJA GRESHAM MA, ANNOTATI ON/ADDEN BAYRON pickett MA [facility] 0 12:55:32 Influenz a vaccine needed [id number] 06 Completed 201203/09/2014 RECORDED 09/02/19 13 3:59PM BY SONJA GRESHAM MA, OFFICE VISIT YONATHAN [facility] [address] [address], [place], [address], [facility] 6 09:45:34 Acute laryngit is 7700157 Completed 201203/09/2014 IMPRESSI ON: SOOTHING LIQUIDS, WARM SALT WATER GARGLING ADVISED ALONG WITH VOICE REST.; RECORDED 09/02/19 13 3:50PM BY SONJA GRESHAM MA, ANNOTATI ON/ADDYONATHAN Le[facility] [address] [place], [address], [facility] 6 09:45:34 Influenz a vaccine needed [id number] 06 Completed 201203/10/2014 RECORDED 09/02/19 13 3:59PM BY SONJA GRESHAM MA, OFFICE VISIT YONATHAN Bailon [address] [facility] [address], [place], [address], [facility] 6 09:45:34 Acute laryngit is 4366085 Completed 201203/10/2014 IMPRESSI ON: SOOTHING LIQUIDS, WARM SALT WATER GARGLING ADVISED ALONG WITH VOICE REST.; RECORDED 09/02/19 13 3:50PM BY SONJA GRESHAM MA, LUISA ON/SHALONDA Steward, [facility] [address] [address], [facility] [place], [address], [facility] 6 09:45:34 Renewal of prescrip tion Completed 201202/14/2014 RECORDED 12/04/19 13 3:16PM BY SONJA GRESHAM MA, LUISA ON/SHALONDA Steward, [facility] [address] [address], [place], [address], [facility] 6 09:45:34 Adult health examinat ion Completed 201202/14/2014 IMPRESSI ON: PT NEEDS PAP, I MARTINEZ ET UP WITH CHAIR SPRING ASSEMBLER, EXERCISI ES, NOT SEXUALLY ACITVE, NO HIGH RISK ACTIVITY ; RECORDED 12/04/19 13 3:16PM BY SONJA GRESHAM MA, LUISA ON/SHALONDA Steward, [facility] [address] [facility] [address], [place], [address], [facility] 6 09:45:34 Lymphade nopathy [id number] Completed 201202/14/2014 RESOLVED DATE: 12/04/19 13; IMPRESSI ON: RESOLVED ; RECORDED 12/04/19 13 3:43PM BY TITA CONCEPCION, LUISA ON/SHALONDA Steward, [facility] [address] [facility] [address], [place], [address], [facility] 6 09:45:34 Renewal of prescrip tion Completed 201203/09/2014 RECORDED 12/04/19 13 3:16PM BY SONJA GRESHAM MA, LUISA ON/SHALONDA Steward, [facility] [address] [address], [facility] [place], [address], [facility] 6 09:45:34 Adult health examinat ion Completed 201203/09/2014 IMPRESSI ON: PT NEEDS PAP, I MARTINEZ ET UP WITH CHAIR SPRING ASSEMBLER, EXERCISI ES, NOT SEXUALLY ACITVE, NO HIGH RISK ACTIVITY ; RECORDED 12/04/19 13 3:16PM BY SONJA GRESHAM MA, LUISA ON/SHALONDA Steward, [address] [address], [facility] [place], [address], [facility] 6 09:45:34 Lymphade nopathy [id number] Completed 201203/09/2014 RESOLVED DATE: 12/04/19 13; IMPRESSI ON: RESOLVED ; RECORDED 12/04/19 13 3:43PM BY TITA OCNCEPCION, LUISA ON/SHALONDA Steward, [address] [address], [facility] [place], [address], [facility] 6 09:45:34 Renewal of prescrip tion Completed 201203/10/2014 RECORDED 12/04/19 13 3:16PM BY SONJA GRESHAM MA, LUISA ON/SHALONDA Steward, [facility] [address] [address], [facility] [place], [address], [facility] 6 09:45:34 Adult health examinat ion Completed 201203/10/2014 IMPRESSI ON: PT NEEDS PAP, I MARTINEZ ET UP WITH CHAIR SPRING ASSEMBLER, EXERCISI ES, NOT SEXUALLY ACITVE, NO HIGH RISK ACTIVITY ; RECORDED 12/04/19 13 3:16PM BY SONJA GRESHAM MA, LUISA ON/SHALONDA Steward, [facility] [address], [place], [address], [facility] 6 09:45:34 Lymphade nopathy [id number] Completed 201203/10/2014 RESOLVED DATE: 12/04/19 13; IMPRESSI ON: RESOLVED ; RECORDED 12/04/19 3:43PM BY TITA CONCEPCION, LUISA ON/SHALONDA Steward, [facility] [address], [place], [address], [facility] 6 09:45:34 Lyme disease [id number] Completed 201202/14/2014 IMPRESSI ON: EXAM TODAY DOES NO LOOK LIKE EM BUT BASED ON DESCRIPT ION YEST IT COULD HAVE BEEN. SINCE SHE ALSO HAS BEEN HAVING FLU LIKE SXS WILL TREAT FOR POSSIBLE EARLY LYME; RECORDED 12/14/19 13 3:05PM BY SONJA GRESHAM MA, LUISA ON/SHALONDA Steward, [facility] [address], [place], [address], [facility] 6 09:45:34 Lyme disease [id number] Completed 201203/09/2014 IMPRESSI ON: EXAM TODAY DOES NO LOOK LIKE EM BUT BASED ON DESCRIPT ION YEST IT COULD HAVE BEEN. SINCE SHE ALSO HAS BEEN HAVING FLU LIKE SXS WILL TREAT FOR POSSIBLE EARLY LYME; RECORDED 12/14/19 13 3:05PM BY SONJA GRESHAM MA, LUISA ON/SHALONDA Steward, [facility] [address], [place], [address], [facility] 6 09:45:34 Lyme disease [id number] Completed 201203/10/2014 IMPRESSI ON: EXAM TODAY DOES NO LOOK LIKE EM BUT BASED ON DESCRIPT ION YEST IT COULD HAVE BEEN. SINCE SHE ALSO HAS BEEN HAVING FLU LIKE SXS WILL TREAT FOR POSSIBLE EARLY LYME; RECORDED 12/14/19 13 3:05PM BY SONJA GRESHAM MA, LUISA ON/ADDEN DUM Donny Steward, [facility] [address], [place], [address], [facility] 6 09:45:34 Patient status finding [id number] Completed 201202/14/2014 RECORDED 03/23/20 13 8:59AM BY GILLES LAZARO MA, LUISA ON/ADDEN DUM Galina Terry MA null, [facility] [place] 9 11:15:13 Nausea [id number] Completed 201202/14/2014 IMPRESSI ON: WILL DO SERUM HCG TO CONFIRM NO PREGNANC Y.; RECORDED 03/23/20 13 8:59AM BY GILLES LAZARO MA, LUISA ON/ADDEN DUM Donny Steward, [facility] [address], [place], [address], [facility] 6 09:45:34 Patient status finding [id number] Completed 201203/09/2014 RECORDED 03/23/20 13 8:59AM BY GILLES LAZARO MA, LUISA ON/ADDEN DUM Galina Terry MA null, [facility] [place] 9 11:15:13 Nausea [id number] Completed 201203/09/2014 IMPRESSI ON: WILL DO SERUM HCG TO CONFIRM NO PREGNANC Y.; RECORDED 03/23/20 13 8:59AM BY GILLES LAZARO MA, LUISA ON/ADDEN DUM Donny Steward, [facility] [address], [place], [address], [facility] 6 09:45:34 Patient status finding [id number] Completed 201203/10/2014 RECORDED 03/23/20 13 8:59AM BY GILLES LAZARO MA, LUISA ON/ADDEN DUM Galina Terry MA null, [facility] [place] 9 11:15:13 Nausea [id number] Completed 201203/10/2014 IMPRESSI ON: WILL DO SERUM HCG TO CONFIRM NO PREGNANC Y.; RECORDED 03/23/20 13 8:59AM BY GILLES LAZARO MA, ANNOTATI ON/ADDEN DUM Donny Steward, [facility] [address] [facility] [address], [place], [address], [facility] 6 09:45:34 COVID-19 [id number] Completed 201908/15/2020 Removal Reason: Problem marked historic al by user [email or web address] from the COVID-19 watch flag Donny Steward, [facility] [address] [facility] [address], [place], [address], [facility] 1 10:40:25 Generali zed anxiety disorder 29203296 Active 2019 Debbi pickett MA null, [facility] [place] 1 10:12:16 Moderate recurren t major depressi on 19250960 Active 2019 Debbi pickett MA null, [facility] [place] 1 10:12:34 Migraine 51709917 Active 2021 Gonzalo Mercado MD [address] [facility] [address], [place], [address], [facility] 2 14:52:10 Anxiety 62383143 Active 2022 Donny Steward [facility] [address] [facility] [address], [place], [address], [facility] 3 13:19:57 Recurren t major depressi ve episodes , moderate 033243387 Active 2022 Donny Steward [facility] [address] [facility] [address], [place], [address], [facility] 3 13:19:57 Hyperlip idemia 10754279 Active 07/13/ 2023 NOLBERTO [facility]on[facility] [address], [place], [address], [facility] 3 13:26:24 Unable to concentr ate 04751568 Active 2022 Donny Steward [facility] [address], [place], [address], [facility] 3 13:36:31 Vitamin D deficien cy 81012277 Active 2023 Donny Steward [facility] [address], [place], [address], [facility] 4 15:55:45 Insomnia 031856217 Active 2023 YONATHAN Bailon [address], [place], [address], [facility] 4 16:16:24 Pain of left hip joint 08196026188 9100 Active 2023 NOLBETRO [facility]UP [address], [place], [address], [facility] 4 14:53:39 Moderate persiste nt asthma 588944338 Active 2023 NOLBERTO [facility]onUP [address], [place], [address], [facility] 4 11:48:24 Spasm 85533904 Active 2024 Donny Steward [facility] [address], [place], [address], [facility] 5 15:39:17 Problem Notes None recorded. Procedures Surgical History Date Name Laterality Status Provider Name and Address Organization Details Recorded Time Adenoidectomy completed Sonja Mccloud [facility] 05/11/2014 13:39:57 Imaging Results None recorded. Procedure Notes None recorded. Medical Equipment None Reported. Allergies Allergen ID Allergen Name Allergen Category Reaction Reaction Severity Criticality Documentation Date Start Date Code Code System Note Provider Name and Address Organization Details Recorded Time 73964 escitalop sherwin Not available confusion severe high 10/12/2024 73365 8 RxNorm Galina Terry MA null, [facility] [place] 5 15:17:03 568 No known allergy (situatio n) Not available Not available Not available Not available 02/14/20142011 78920 6003 SNOMED COMME NT: RECOR DED 04/22 1:35P M BY GALINA EDGAR, OFFIC E VISIT ; Not Available [facility] 4 13:18:58 569 Robaxin medicatio n myalgias (muscle pain) Not available Not available 02/14/201455751 5 RxNorm Donny Steward [facility] [address] [facility] [address], [facility] [address] [place] [address] 4 14:10:21 Medications Name Sig Start Date Stop Date Status Note LastModified by Organization Details LastModified Time carisopro dol 350 mg tablet 3 TIMES A DAY 10/14 completed RECORDED 02/06/20 10 9:42AM BY SHANE FAGAN MD, MEDICATI ON AUT[facility]-BRYAN CTIVATIO N; Not Available Not Available Not [...] 12/14/19 13 4:09PM BY TITA CONCEPCION, ANNOTATI ON/ADDEN DUM; Not Available Not Available [...] 11:22AM BY GONZALO Cisneros MD, MEDICATI ON AUTO-BRYAN CTIVATIO N; Not Available Not Available Not Available sertralin e 100 mg tablet Take 2 tablets every day by oral route as directed for 30 days. 06/25 completed Not Available Not Available Not Available Zithromax Z-Shemar 250 mg tablet QD 08/30 completed RECORDED 12/03/19 14 10:48AM BY CAMRYN Bello MD, MEDICATI ON AUTO-BRYAN CTIVATIO N;2PO QD FOR 1 DAY, THEN [...] 14 11:09AM BY CAMRYN Bello MD, ANNOTATI ON/ADDRANJITH DUM; Not Available Not Available Not Available [...] 1:54PM BY CAMRYN Bello MD, MEDICATI ON AUTO-BRYAN CTIVATIO N; Not Available Not Available Not [...] VISIT; Not Available Not Available Not Available (21) 1.5 mg-30 mcg tablet Take 1 [...] 11:26AM BY SHANE FAGAN MD, MEDICATI ON AUTO-BRYAN CTIVATIO N; Not Available Not Available Not Available Epi E-Z Pen 12/14 completed RECORDED 12/15/19 07 9:21AM BY AMILCAR Norman MEDICATI ON AUTO-BRYAN CTIVATIO N;THIS ORDER DISCONTI NUED PER MEDI-SPA [...] for 84 days. 12/29 completed Pt states [facility] is saying they have no script on [...] Updated DateTime 5 167.64 cm 24.1 kg/m2 29626.9 6 g 98 % 98 % 81 /min 98.6 [degF] 122/73 mm[Hg] [facility] 5 09:56:51 Date Recorded Body height Provider Name an d Address Organization Details Last Updated DateTime 10/12/2024 167.64 cm Galina Terry MA [facility] 10/12/2024 15:15:42 Date Recorded Body height Body mass index (BMI) Body weight Heart rate Oxygen saturation Oxygen saturation in Arterial blood by Pulse oximetry Body temperature Systolic And Diastolic Provider Name and Address Organization Details Last Updated DateTime 5 167.64 cm 27.1 kg/m2 75209.5 2 g 80 /min 98 % 98 % 98.2 [degF] 113/73 mm[Hg] Elisa foster MA [facility] [place] 5 09:03:54 Date Recorded Body height Body mass index (BMI) Body weight Heart rate Oxygen saturation Oxygen saturation in Arterial blood by Pulse oximetry Body temperature Systolic And Diastolic Provider Name and Address Organization Details Last Updated DateTime 5 167.64 cm 26.3 kg/m2 03673.5 6 g 67 /min 96 % 96 % 98.2 [degF] 130/72 mm[Hg] Elisa foster MA [facility] [place] 5 14:59:04 Date Recorded Body height Body mass index (BMI) Body weight Oxygen saturation Oxygen saturation in Arterial blood by Pulse oximetry Heart rate Body temperature Systolic And Diastolic Provider Name and Address Organization Details Last Updated DateTime 4 167.64 cm 26 kg/m2 30548.4 7 g 98 % 98 % 81 /min 98.4 [degF] 116/67 mm[Hg] Galina Terry MA [facility] [place] 4 14:44:19 Social History Question Answer Notes LastModified by Organizat ion Details LastModified Time Tobacco Smoking Status Never Smoker Sonja vilchis [facility] [place] 05/11/2014 13:59:39 Do You Have An Advance [...] Or Greater Than 100 Degrees Fahrenheit? No [email or web address] Information not available 06/19/2020 Are You Or Anyone In Your Household A Health Care Provider Or Emergency Responder? No [email or web address] Information not available 06/19/2020 To The Best Of Your Knowledge Have You Been In Close Proximity To Any Individual Who Tested Positive For COVID-19? No [email or web address] Information not available 06/19/2020 Have You Recently Traveled To A COVID-19 High Risk Area Or Gathering In The Last 10 Days? No [email or web address] Information not available 08/15/2020 What Was The Date Of Your Most Recent Tobacco Screening? 03/03/2025 [email or web address] Information not available 03/03/2025 How Many Children Do You Have? 0 Information not available 06/25/2021 Do You Use Protection During Sex? Usually [email or web address] Information not available 12/30/2023 What Is Your [...] able to care for yourself independently? Yes [email or web address] Information not available 12/30/2023 What is your [...] Organization Details LastModified Time Mother Well adult [email or web address] Not avail able 04/29/2023 14:30:09 Mother Migraine Not available 06/25/2021 13:27:35 Father Well adult [email or web address] Not avail able 04/29/2023 14:30:09 Father Blood pressure finding 53 Not available 04/29 14:30:09 Father Harmful pattern of use of alcohol Not available 2020 13:27:35 Maternal Aunt Carcinoma in situ of breast [email or web address] Not available 04/29 14:30:09 Maternal Grandmother Hypothyroidi sm [email or web address] Not available 04/29 14:30:09 Paternal Aunt Malignant neoplasm of skin 62 [email or web address] Not available 04/29 14:30:09 Maternal Grandfather Blood pressure finding [email or web address] Not available 04/29 14:30:09 Maternal Grandfather Diabetes mellitus Not available 2020 13:27:35 Maternal Grandfather Arthritis Not available 06/04 13:27:35 Brother Myocardial infarction 36 [email or web address] Not available 04/04 14:30:09 Unspecified Relation Alzheimer's disease Not available 2020 13:27:35 Sister Migraine Not available 06/25/2021 13:27:35 Sister Anxiety disorder Not available 2020 13:27:35 Medical History Condition Response Coronary Artery Disease N Other N Gout N Kidney Stones N Blood Diseases N Hyperthyroidism N Breast Cancer N mrsa exposure N Hypothyroidism N Depression Y COPD N Lung Disease N Developmental or Behavioral Disorders N Defects or Inherited Disease N Breast Problem N Anesthesia Complications N Headaches/Migraines Y Varicose Veins N Anxiety Disorder Y Muscle, Joint, or Bone Problems Y Obesity N Vision or Eye Problems N Arthritis N Head Injury/Concussion N Polyps N Infertility N Mental Disorder N Congenital Anomalies N Acid Reflux (GERD) N Cancer N Stroke N ADHD N Endometriosis N High Cholesterol N Liver Disease N Headaches N Fibromyalgia N Kidney Disease N Heart Problems N Ear or Hearing Problems N Hospitalizations N Thyroid Problems N GI Problems N Developmental Delay N Acne N Skin Problems N Eating Disorder N Anemia N Constipation N Bladder Problems N Mental Illness N Ovarian Cancer N Diabetes N Bedwetting N Blood Transfusions N Seizures/Epilepsy N Heart Problems/Murmur N Tuberculosis N AIDS/HIV N Congestive Heart Failure (CHF) N Eczema N Diverticulitis N Abuse/Domestic Violence N Asthma N Allergies Y Reflux/GERD N [...] mL dose 06/04/20 21 completed ANABEL Jay, [facility] [place] 11/20/2021 13:27:49 COVID-19, mRNA, LNP-S, PF, 30 mcg/0.3 mL dose 10/06/19 21 completed ANABEL Jay, [facility] [place] 11/20/2021 13:27:49 COVID-19, mRNA, LNP-S, PF, 30 mcg/0.3 mL dose 11/04/19 21 completed ANABEL Jay, [facility] [place] 11/20/2021 13:27:49 Influenza, split virus, quadrivalent, PF 06/19/20 20 completed ANABEL Leung, [facility] [place] 04/11/2022 14:24:15 Influenza, split virus, quadrivalent, PF 06/25/20 21 completed ANABEL Leung, [facility] [place] 04/11/2022 14:24:15 Tdap 06/25/20 completed ANABEL Leung, [facility] [place] 04/11/2022 14:24:15 Influenza, split virus, quadrivalent, PF 08/23/19 20 cancelled patient objection ANABEL Law, [facility] [place] 08/23/2019 09:56:39 IPV 06/03/19 89 completed Not Available [facility] 02/14/2014 13:23:38 DTaP 06/03/19 89 completed Not Available [facility] 02/14/2014 13:23:38 DTaP 08/03/18 90 completed Not Available [facility] 02/14/2014 13:23:38 IPV 08/03/18 90 completed Not Available [facility] 02/14/2014 13:23:38 DTaP 10/01/18 90 completed Not Available [facility] 02/14/2014 13:23:39 Hib (HbOC) 07/03/19 90 completed [facility] Available [facility] 02/14/2014 13:23:39 MMR 07/03/19 90 completed [facility] Available [facility] 02/14/2014 13:23:39 IPV 10/01/18 91 completed Not Available [facility] 02/14/2014 13:23:39 DTaP 10/01/18 91 completed Not Available [facility] 02/14/2014 13:23:39 varicella 08/03/18 92 completed Not Available [facility] 02/14/2014 13:23:39 DTaP 06/03/19 93 completed Not Available [facility] 02/14/2014 13:23:39 IPV 06/03/19 93 completed Not Available [facility] 02/14/2014 13:23:39 Hep B, adolescent or pediatric 04/03/19 99 completed Not Available [facility] 02/14/2014 13:23:39 Td (adult), 2 Lf tetanus toxoid, preservative free, adsorbed 04/03/19 99 completed Not Available [facility] 02/14/2014 13:23:39 Hep B, adolescent or pediatric 08/03/19 00 completed [facility] 02/14/2014 13:23:39 Hep B, adolescent or pediatric 05/03/20 00 completed [facility] 02/14/2014 13:23:39 MMR 05/03/20 00 completed Not Available [facility] [facility] [place] 02/14/2014 13:23:39 Influenza, split virus, trivalent, preservative 06/30/20 07 completed Not Available [facility] 02/14/2014 13:23:39 Tdap 12/10/19 11 completed Not Available [facility] [place] 02/14/2014 13:23:39 Influenza, split virus, trivalent, preservative 07/14/20 11 completed Not Available [facility] 02/14/2014 13:23:39 influenza, seasonal, intradermal, preservative free 09/02/19 13 completed Not Available [facility] [place] 02/14/2014 13:23:39 Past Encounters Encounter ID Performer Location Encounter Start Date Encounter Closed Date Diagnosis/Indication Diagnosis SNOMED-CT Code Diagnosis ICD10 Code Diagnosis IMO Codes Diagnosis Note [id number] [facility] [address] [facility] [address] [facility] [place] [address] 12/31/2006 00:00:[id number] [address] [place] [address] 10/19/2007 00:00:00 [id number] [employer] [facility] [address],[place] [address] [place] [address] 09/03/2006 00:00:00 [id number] [employer] [facility] [address] [address] [place] [address] 02/28/2008 00:00:00 [id number] [employer] [facility] [address],[place] [address] [place] [address] 10/04/2008 00:00:00 [id number] auto[employer] erce [address] [facility] [address],[place] [address] [place] [address] 05/28/2010 00:00:00 [id number] autoEComm erce [address] [facility],[place] [address] [place] [address] 12/09/2010 00:00:00 [id number] autoEComm erce [address] [facility],[place] [address] [place] [address] 07/14/2011 00:00:00 [id number] auto[employer] erce [address] [facility],[place] [address] [place] [address] 07/17/2011 00:00:00 [id number] auto[employer] erce [address] [facility],[place] [address] [place] [address] 07/31/2011 00:00:00 [id number] auto[employer]Comm erce [address] [facility],[place] [address] [place] [address] 09/18/2011 00:00:00 [id number] autoEComm erce [address] [facility],[place] [address] [place] [address] 04/22/2012 00:00:00 [id number] autoEComm erce [address] [facility],[place] [address] [place] [address] 08/30/2012 00:00:00 [id number] autoEComm erce [address] [facility],[place] [address] [place] [address] 09/02/2012 00:00:00 [id number] autoEComm erce [address] [facility],[place] [address] [place], [place] [address] 12/03/2012 00:00:00 [id number] autoEComm erce [address] [facility],[place] [address] [place], [place] [address] 12/13/2012 00:00:00 [id number] autoEComm erce [address] [facility],[place] [address] [place], [place] [address] 02/07/2013 00:00:00 [id number] auto[employer] erce [address] [facility],[place] [address] [place], [place] [address] 03/23/2013 00:00:00 [id number] autoEComm erce [address] [facility],[place] [address] [place], [place] [address] 08/25/2013 00:00:00 [id number] Kevyn Mcdonough MD Main Office [address] [facility] [address] [place], [place] [address] 03/14/2014 13:00:50 03/14/2014 13:43:29 Tuberculosis screening [id number] Camryn ramirez MD Main Office [address] [facility] [address] [place], [place] [address] 03/17/2014 09:55:15 03/17/2014 13:11:40 [id number] Camryn ramirez MD Main Office [address] [facility] [address] [place] [address] 05/11/2014 13:48:32 05/11/2014 14:32:56 Adult health examination 429388467 pap is utd, doing a great job with weight loss, over 25lbs, is exercising . Asthma 141801091 stable on inhaler prn Allergy 872515687 beesting anaphylaxi s, hx, I reviewed with pt to carry epipen all the time, may repeat one time with second injector [id number] YONATHAN Bailon Main Office [address] [facility] [address] [place] [address] 01/31/2015 10:47:44 01/31/2015 11:19:21 Acute pharyngitis 643046355 Rapid strep negative, sore throat likely due to PND/ coughing, continue Flonase daily. Otitis media 38642899 Righ t OM, Tylenol or ibuprofen for fever/ pain, lots of fluids, amox as prescribed x 10 days even if feeling better. Cough 56963724 Hx of asthma, wheezing on exam, recommend she take her inhaler 4 times daily x 2 days then as needed, continue Flonase daily and robitussin w/ codeine for cough should also help sore throat. [id number] YONATHAN Bailon Main Office [address] [address] [place] [address] 02/14/2015 14:40:30 02/14/2015 15:15:08 Cough 32952798 Robitussin with codeine as needed, use your inhaler every 4 hours as needed, CXR today. Asthma 328041042 Short prednisone burst for wheezing/ continued cough symptoms [id number] Camryn ramirez MD Main Office [address] [address] [place] [address] 02/16/2015 13:49:41 02/16/2015 14:33:12 Cough 83074032 Pneumonia 772127250 see hx , prednisone helping but dark green sputum in ashtma flare treat as below, fluids rest call if not improving Acute asthma 723094966 [id number] Camryn ramirez MD Main Office [address] [address] [place] [address] 08/10/2015 13:27:13 08/10/2015 14:00:09 Cough 67309507 R05 viral, treat as below, rest and fluids Upper resp iratory infection 59540483 J06.9 Asthma 433481557 J45.90 9 flared a bit, add advaira nd use proair with a spacer. reutn with sob, fever worsening status [id number] YONATHAN Bailon Main Office [address] [address] [place] [address] 12/25/2015 15:55:02 12/25/2015 16:24:33 Fatigue 28160420 R53.83 Will check blood work today. Patient may need to have a sleep study done as well as she does snore and finds she wakes up at night. Stay well hydrated, well balanced meals, continue exercise daily. Amenorrhea 16728647 N91. 2 She is 1 week overdue for her menses, is on OCP and took it throughout instead of taking placebo due to vacation, will chesk test. [id number] Donny Steward [facility] Main Office [address] [address] 01/08/2016 09:31:03 01/08/2016 10:12:18 Adult health examination 718284213 Z00.01 Will update immunizati on status and screen based on risk factors. Regular dental care, periodic eye examinatio ns, and safety measures advised. Distracted driving discussed. Immunizati ons UTD, blood work normal about 2 weeks ago. Pap UTD, will request records. [id number] Donny Steward [facility] Main Office [address] [address] 01/08/2017 08:42:26 01/08/2017 09:36:21 Adult health examination 721200665 Z00.00 Will update immunizati on status and screen based on risk factors. Regular dental care, periodic eye examinatio ns, and safety measures advised. Distracted driving discussed. Pap UTD Snoring 34972062 R06.83 Will check sleep study as fatigue continues. Fatigue 66153284 R53.83 Will check blood work today. Patient may need to have a sleep study done as well as she does snore and finds she wakes up at night. Stay well hydrated, well balanced meals, continue exercise daily. [id number] Samaria Ramos PA-C Main Office [address] [address] 02/17/2017 11:31:42 02/17/2017 12:03:12 Acute pharyngitis 374454370 J02.9 Acute otitis media 48861 03 H65.112 STart Sudafed PE 120 mg BID for decongesti on as well as Abx prescribed . OTC pain medication s advised. Manuel works the best for her. Eustachian tube disorder 21764164 H69.93 Pt. has h/o allergies. Uses FLovent. Advised to also try antihistam jaclyn. [id number] Camryn ramirez MD Main Office [address] [address] [place] [address] 09/17/2017 12:37:18 09/17/2017 13:50:17 Acute pharyngitis 628375837 J02.9 neg quick strep Fever 560055668 R50.9 Influenza 1061383 J11.1 positive flu test, tx as below, fluids, rest return if any worsening [id number] YONATHAN Bailon Main Office [address] [address] [place] [address] 01/28/2018 11:24:46 01/28/2018 12:12:35 Adult health examination 065460818 Z00.00 Will update immunizati on status and screen based on risk factors. Regular dental care, periodic eye examinatio ns, and safety measures advised. Distracted driving discussed. Pap UTD Epidermoid cyst 64484423 6 L72.0 [id number] Dar Ramos PA-C Main Office [address] [address] [place] [address] 06/07/2018 10:28:57 06/07/2018 11:41:35 Acute sinusitis 07628289 J01.90 rec probiotics while on abx [id number] Kevyn Mcdonough MD Main Office [address] [address] [place] [address] 02/25/2019 12:57:38 02/25/2019 13:53:16 Adult health examination 230774750 Z00.00 Will update immunizati on status and screen based on risk factors. Regular dental care, periodic eye examinatio ns, and safety measures advised. Distracted driving discussed. Pap UTD Degenerati on of lumbar intervertebral disc 71041103 M51.36 Greater tr ochanteric pain syndrome 9638691 M70.62 right sided. she will take ibuprofen TID with food x 5 days. ,heat or ice whichever feels best, stretches as tolerated. recommend she use a recumbent bike/ take a break from elliptical . [id number] Kevyn Mcdonough MD Main Office [address] [address] [place] [address] 05/19/2019 14:10:58 05/19/2019 15:00:51 Adjustment disorder with anxious mood 87991627 F43.22 Patient has not slept multiple nights [...] we will discuss further tx with SSRI. [id number] Kevyn Mcdonough MD Main Office [address] [facility] 207 [place] [address] 07/14/2019 11:13:36 07/14/2019 12:03:35 Recurrent major depressive episodes, moderate 726874810 F33.1 doing ok on lexapro but still scoring high on PHQ-9 and CUBA. she is not crying as easily so is getting some relief from med. recommend we increase the dose and have her push it up to dinner time. May be more tired due to also taking melatonin with med. f/u in 6 weeks. Adjustment disorder with anxious mood 67897757 F43.22 do not take this with melatonin, use only as needed, no driving or alcohol with med. [id number] Kevyn Mcdonough MD Main Office [address] [facility] [address] [place] [address] 08/23/2019 09:30:03 08/23/2019 10:33:59 Influenza vaccination declined 281066170 Z28.21 Generalize d anxiety disorder 98625540 F41.1 Adjustment disorder with mixed emotional features 58278690 F43.23 Recurrent major depressive episodes, moderate 748934366 F33.1 Much better on 20mg lexapro. will continue, has a good support system. Will wait until PE in January for follow-up but will call if she needs anything prior. [id number] Kevyn Mcdonough MD Main Office [address] [facility] [address] [place] [address] 06/19/2020 14:27:46 06/19/2020 15:44:59 Adult health examination 107781806 Z00.00 Will update immunizati on status and screen based on risk factors. Regular dental care, periodic eye examinatio ns, and safety measures advised. Distracted driving discussed. Pap appt upcoming Needs infl ukaylaa immunization 045831940 Z23 Abnormal weight gain 161 095423 R63.5 weight gain, on lexapro, not exercising much except she is active on weekends.. will switch lexapro to setraline, recommend short HIIT workouts or 30 mins exercise 4 times weekly, dietary changes. Screening for cardiovascular system disease 350061451 Z13.6 Recurrent major depressive episodes, moderate 502881762 F33.1 no need to wean off lexapro, start sertraline instead of next dose of lexapro. f/u in 1month for rec heck. Anxiety 44187457 F41.9 [id number] Kevyn Mcdonough MD [facility] 3640 [facility] 207 [facility] [place] [address] 07/18/2020 13:06:16 07/19/2020 08:58:40 Recurrent major depressive episodes, moderate 710713930 F33.1 will increase sertraline to 100mg daily. add lorazepam to use as needed until med kicks in fully. if any problems with med please call/ return. Generalize d anxiety disorder 46268166 F41.1 [id number] Kevyn Mcdonough MD [facility] 3640 [facility] 207 [facility] [place] [address] 08/15/2020 07:27:16 08/16/2020 13:39:16 Generalized anxiety disorder 02712176 F41.1 CUBA score 06/23 today. Moderate r ecurrent major depression 34085946 F33.1 PHQ-9 score . Improving but slowly, Patient uis frustrated that [...] no change will add wellbutrin daily. Asthma 263541505 J45.90 9 Short prednisone burst for wheezing/ continued cough symptoms [id number] Kevyn Mcdonough MD [facility] [address] [place] [address] [place] [address] 08/30/2020 08:18:48 08/30/2020 14:57:30 Moderate recurrent major depression 54898993 F33.1 PHQ-9 score 20/27. Improving but slowly, [...] weeks for recheck. Generalize d anxiety disorder 13364487 F41.1 CUBA score 8/21 today. Improved. she feels anxiety is a lot better . [id number] Kevyn Mcdonough MD [address] [place] [address] 09/13/2020 06:21:52 09/13/2020 12:52:26 Moderate recurrent major depression 13055029 F33.1 PHQ-9 score 12/27. Improving but slowly, Patient is frustrated that she is not feeling better. Positive reinforcem ent provided, continue meds as directed, do not miss doses or stop meds abruptly. F/u in 2 months for recheck. Generalize d anxiety disorder 31519350 F41.1 CUBA score 4/21 today. Improved. she feels anxiety is a lot better . Insomnia 331958539 G47.0 0 using lorazepam as needed. [id number] Gonzalo Mercado MD [address] [place] [address] 09/15/2020 09:08:57 09/15/2020 12:14:54 Dysuria 76066320 R30.9 Will cover for uncomplica john cystitis. Push fluids and submit UA/culture if possible prior to starting abx. INB/worse will need further eval. [id number] Kevyn Mcdonough MD Main Office [address] [place] [address] 04/30/2021 10:38:55 04/30/2021 11:21:37 Amenorrhea 30258855 N91.2 She took preg test at home [...] results of serum Generalize d anxiety disorder 82011996 F41.1 [id number] Kevyn Mcdonough MD Main Office [address] [facility] [address] [facility] [place] [address] 06/25/2021 13:24:46 06/25/2021 14:14:58 Adult health examination 345945637 Z00.00 Will update immunizati on status and screen based on risk factors. Regular dental care, periodic eye examinatio ns, and safety measures advised. Distracted driving discussed. Needs infl uenza immunization 140058908 Z23 Recurrent major depressive episodes, moderate 595039455 F33.1 doing well off meds. Anxiety 51127567 F41.9 doing well off meds Contracept ion care management 423706047 Z30.9 she is currently on mini pill and does not feel it is working well for her. She was on previously and had decreased sex drive. Will try lower dose OCP. Take at same time daily, do not miss doses or double doses. Exposure t o sexually transmissible disorder 669101823 Z20.2 Administra tion of viral vaccine 01223240 Z23 Screening for malignant neoplasm of cervix 119107050 Z12.4 due for screening. [id number] Kevyn Mcdonough MD [facility] [address] [facility] [address] [place] [address] 11/20/2021 07:57:39 11/20/2021 14:52:26 Generalized anxiety disorder 88728590 F41.1 CUBA- 12/21. using THC products, she notes she wants to get a medical card. Does not want to re-start meds. Moderate r ecurrent major depression 16583879 F33.1 PHQ-9 . She is very nervous to re-start a med as most recent side effects were very bad. She feels like she is using so much energy at work trying to be normal and happy but her efforts are not cutting it. [id number] Gonzalo Mercado MD [facility] [address] [place] [address] [facility] [place] [address] 04/11/2022 13:06:35 04/11/2022 16:26:49 Fever 300221279 R50.9 This is unusual and has not recurred. Difficult to say if infectious illness is evolving of if possibly relate to onset of menses. Advised to call if recurs or if infectious symptoms develop. Headache 72589519 R51.9 Sounds migranous, no meningismu s. WiIl try tryptan and continue excedrin migraine PRN. Adequate hydration advised as well. Migraine 33985058 G43.90 9 Correlates to menses. See if sumatripta n works as abortive therapy. Advised to call for in office eval if worsening. Advised of common/ser ious potential side effects. [id number] Kevyn Mcdonough MD Main Office [address] [place], [place] [address] 06/18/2022 13:25:00 06/18/2022 14:07:05 Exposure to sexually transmissible disorder 412383158 Z20.2 Had intercours e with a man once 3 months ago who called her to let her know that he was with someone who tested positive for chlamydia. She is symptom-fr ee. [id number] Kevyn Mcdonough MD Main Office [address] [place] [address] 02/12/2023 13:02:32 02/12/2023 13:53:26 Adult health examination 360577728 Z00.00 Will update immunizati on status and screen based on risk factors. Regular dental care, periodic eye examinatio ns, and safety measures advised. Distracted driving discussed. Exposure t o sexually transmissible disorder 979805474 Z20.2 Screening for malignant neoplasm of cervix 590111064 Z12.4 due for screening, she will schedule Hyperlipidemia 19738848 E78.5 Fatigue 24458611 R53.83 Unable to concentrate 60 706307 R41.840 will refer, unclear if her insurance will cover testing. [id number] Gonzalo Mercado MD [address] [place] [address] 02/24/2023 14:23:27 02/24/2023 16:23:27 Dysuria 09620119 R30.0 pt will give urine sample - check u/s & c&s, and will rx empiricall y c cipro cont push fluids, consider cranberry juice, also consider prn pyridium recommend probiotics while on abx Flank pain 634553563 R10 .9 check u/s to r/o kidney stones [id number] Kevyn Mcdonough MD [place] [address] [place] [address] 04/29/2023 14:30:01 04/29/2023 15:30:38 Anxiety 97960395 F41.9 will take some time off work to reset- note provided, continue seeign therapy. Call/ return for any concerns or worsening. Moderate r ecurrent major depression 70070933 F33.1 She is very nervous to re-start a med as most recent side effects were very bad. She feels like she is using so much energy at work trying to be normal and happy but her efforts are not cutting it. [id number] eKvyn Mcdonough MD [place] [address] [place] [address] 12/30/2023 14:04:16 12/30/2023 15:13:21 Anxiety 13975737 F41.9 CUBA . Ready to start med, [...] recheck. Major depr ession in partial remission 30385075 F32.4 PHQ score 09/29. [id number] Kevyn Mcdonough MD [facility] [address] [place] [address] 02/17/2024 14:52:20 02/17/2024 16:15:30 Moderate recurrent major depression 38877163 F33.1 She is very nervous to re-start a med as most recent side effects were very bad. She feels like she is using so much energy at work trying to be normal and happy but her efforts are not cutting it. PHQ score . Anxiety 93665981 F41.9 CUBA 20/.Gisela genesis kimbrough cole increased on venlafaxin e, having side effects, [...] F/u in 4 weeks for recheck. Fatigue 26491635 R53.83 Hyperlipidemia 30737796 E78.5 Vitamin D deficiency 347 71608 E55.9 [id number] Kevyn Mcdonough MD Main Office [address] [place] [address] 03/15/2024 15:20:09 03/15/2024 16:27:36 Adult health examination 955411589 Z00.00 Will update immunizati on status and screen based on risk factors. Regular dental care, periodic eye examinatio ns, and safety measures advised. Distracted driving discussed. Screening for malignant neoplasm of cervix 175336462 Z12.4 due for screening, she will schedule Hyperlipidemia 31724699 E78.5 Fatigue 47181448 R53.83 Migraine 65128844 G43.90 9 refill provided Asthma 159603284 J45.90 9 refill provided Moderate r ecurrent major depression 12753339 F33.1 bupropion is helping, she does feel she needs an increased ose but is not sleepign well. Will change to SR dosing 100mg BID, take in am and early afternoon to see if that helps. if not we can go back to 150mg XL daily. Insomnia 172989471 G47.0 0 lorazepam as needed for sleep until med adjustment . [id number] Kevyn Mcdonough MD Main Office [address] [facility] 207 [facility] [place] [address] 04/21/2024 14:28:23 04/21/2024 15:15:04 Pain of left hip joint 7793104222 32418 M25.552 suspect referred pain but will XR both hip/ pelvis and lumbar spine Low back pain 894257045 M54.50 Suspect lumbar radiculopa thy/ sciatica. Meloxicam once daily with food x 14 days, heat orn ice whichever feels best, stretching as tolerated, cyclobenza kamini as needed at bedtime- no driving, work or alcohol with med. Xrays today. [id number] Kevyn Mcdonough MD Main Office [address] [place] [address] 08/15/2024 09:42:23 08/15/2024 10:22:35 Cyst of ovary 83861152 N83.209 -CT findings of bilateral adnexal cyst and possible ruptured cyst-endor ses lower abdominal/ pelvic discomfort around menstruati on>regular monthly cycles-was advised to f/u with [employer]-pt's [employer] office recently closed, will refer to [facility] [employer] [facility] Hemorrhoids 89154151 K64 .9 reviewed hospital documentat ion-was evaluated for rectal bleeding x2 weeks-last episode of bright red blood per rectum was last -w as advised to f/u with GI for possible anoscopy or internal hemorrhoid ligation [id number] Kevyn Mcdonough MD [facility] 3640 [facility] [address] [place] [address] 10/12/2024 12:53:56 10/12/2024 16:07:41 Generalized anxiety disorder 38960045 F41.1 CUBA- 16/21. using THC products, she notes she wants to get a medical card. Does not want to re-start SSRI at this time. Moderate r ecurrent major depression 12659998 F33.1 05/29, continue bupropion, will fill out FMLA paperwork for her. recommend she re-connect with her therapist to sort through her feelings Spasm 47717977 R25.2 having spasms in am, is hydrating, will try tizanidine at bedtime to see if it helps with sx. [id number] Kevyn Mcdonough MD Main Office [address]40 [facility] [address] [place] [address] 12/14/2024 08:53:36 12/14/2024 09:33:13 Miscarriage 58354000 O03.9 24380 -was evaluated for heavy bleeding-d x with a miscarriag e at 8 weeks via US-follows closely with OB, has an appt tomorrow-h as a strong support system, does have a therapist but has not discussed this event with her yet-bleedi ng has lightened, no longer passing clots; goes through 2-3 regular pads a day-will complete FMLA form for intermitte nt leave Transition of care 96099 33661 105 Z78.9 [id number] reviewed hospital documentat ion Generalize d anxiety disorder 88572361 F41.1 CUBA- 16/21. using THC products, she notes she wants to get a medical card. Does not want to re-start SSRI at this time. Moderate r ecurrent major depression 38035055 F33.1 [id number] Kevyn Mcdonough MD Main Office [address]40 [facility] [address] [place] [address] 03/03/2025 14:51:08 03/03/2025 15:23:28 Adult health examination 063202011 Z00.00 UTD. Will update immunizati on status and screen based on risk factors. Regular dental care, periodic eye examinatio ns, and safety measures advised. Distracted driving discussed. Hyperlipidemia 62494792 E78.5 Asthma 261342441 J45.90 9 refill provided Moderate r ecurrent major depression 40262143 F33.1 bupropion is helping, c/w 300mg Insomnia 712348358 G47.0 0 -continues to wake 2x a night for 20min at a time-had no relief from lorazepam- may be related to undiagnose d ADHD-pt not interested in medication at this time, prefers to wait until she sees psych Poor concentration 35361 005 R41.840 614656 -symptoms of difficulty concentrat ing, completing tasks, and focusing-f inds her mind to be all over the place -wou ld benefit from a formal evaluation for ADHD-will refer to psych Moderate p ersistent asthma 076684061 J45.40 refills provided Health Concerns Section Related Observation LastModified by Organization Detai ls LastModified Time None Recorded Concern Status LastModified by Organization Details LastModified Time None Recorded Advance Directives Directive Y: Payers Insurance Date Sequence Insurance Name Policy Number Policy Cooper Covered Member ID Cooper Member ID Guarantor Name 12/08/2022 1 [facility] [id number] Aysha K Veliz [id number] Aysha K Veliz 11/19/2021 1 [facility] [place] [id number] Aysha Pastor [id number] Aysha K Veliz 11/19/2021 1 [facility] PUBLIC [facility] [place] Aysha Pastor [id number] Aysha K Veliz 02/20/2025 1 [facility] [place] [id number] Aysha K K Veliz [id number] Aysha K Veliz 12/29/2023 1 [employer] (POS) [id number] 0003 Aysha K Veliz [id number] Aysha K Veliz 04/21/2025 1 [employer] (POS) [id number] 0003 Aysha K Veliz [id number] Aysha K Veliz 08/10/[address] [id number] Arnulfo Wilson [id number] Aysha K Veliz 02/23/2020 1 [facility]) [id number] Mihai Pastor [id number] Aysha Veliz Notes Date Note Type Note Provider Name [...] raining. thought weather related.04/01 walked around in [place] and was having a lot more pain was wearing comfortable, supportive sneakers.Pain is constant and flares with certain activities and at the end of the day. has trouble even laying on that side, and has diff moving her body to the other side or her back. YONATHAN Bailon [address] [facility] [address], [place], [address], [facility] 04/21/2024 15:49:25 08/15/2024 text/html ROS as noted in the HPI Aysha is a 34yr old F who presents for a hospital f/u. [facility]: [facility]: 08/09/23 Aysha was [place] [facility] [place] per rectum x2 weeks. Associated lower abdominal cramping. Denies of any known trauma, fever/chills. US revealed bilateral cyst, possible cyst rupture. No GI findings. CT scan was ordered and revealed finding suggestive of ruptured adnexal cysts w/ trace free pelvic fluid. TITA ROCHA [address], [place], [address], [facility] 08/16/2024 22:49:38 10/12/2024 text/html Generic HPI [...] is happening. Last Thursday she went to [place] for cake tasting with her aunt, her [...] Her fiance is very supportive. Tish vilchis, [facility] 11/03/2024 16:16:13 12/14/2024 text/html ROS [...] and has an appt tomorrow. TITA ROCHA [address] [facility] [address], [place], [address], [facility] 12/14/2024 09:39:46 03/03/2025 text/html ROS as [...] referral to psychiatry for evaluation. TITA ROCHA [address] [facility] [address], [place], [address], [facility] 03/03/2025 15:27:14 OBGyn Episode No OBEpisode recorded.
--- OUTSIDE RECORDS SUMMARY | 2025-06-08 18:30 | XMS_ITS | Patient Health Record ---
Author Organization [facility] Address [address] [place] [address] Care Team Providers Care Motor Route Carrier Name Role Phone CAMRYN CYR Primary Care Provider Unavailable Bhavana Louie Unavailable [phone] Allergies Allergen (clinical drug ingredient) Drug/Non Drug [...] W/U Status Risk Notes Problem Asthma (disorder) (767516377) Asthma, unspecified, unspecified status (493.90) Active confirmed Major Problem Dysmenorrhea (947686680) Dysmenorrhea (625.3) Active confirmed Diag Problem Light and infrequent menstruation (271113280) Scanty or infrequent menstruation (626.1) Active confirmed Major Problem Gynecological examination normal (799926505436162) Routine gynecological examination (V72.31) Active confirmed Major Plan Of Treatment Pending Test Test Name Order Date Urinalysis 06/11/2017 THIN PREP, HPV IF ASCUS (21-29YR) 2017 Insurance Providers Payer Name Payer Address Payer Phone Subscriber Number Group Number Insured Name Patient Relationship to Insured Coverage Start Date Coverage End Date [facility] [address] [place] [address] [phone] [id number] CJ ROGER Spouse - patient is the spouse of the insured Medical (General) History Medical History History ICD Code Degenerative Spine Disease Scanty or infrequent menstruation 626.1 Dysmenorrhea, unspecified N94.6 Other asthma J45.998 Oligomenorrhea, unspecified N91.5 Surgical History Surgery Date(Month/Year) [place] Teeth Adenoidectomy Eear Tubes Hospitalization History Reason Date(Month/Year) See Surgical Hx
== END 2025-06-08 16:23 | disposition home or self-care (01) ==
LOC: HO.HWS 15:45
PROVIDERS: PCP Student in an Organized Health Care Education/Training Program; Visit Provider Obstetrics & Gynecology
DX: N93.9 Abnormal uterine and vaginal bleeding, unspecified (principal); N83.291 Other ovarian cyst, right side; N83.292 Other ovarian cyst, left side; Z32.02 Encounter for pregnancy test, result negative
CPT/HCPCS: 58100; 99213

== ENCOUNTER → 2025-07-05 13:32 | Outpatient (BNV) | payer OTHER, SELFPAY | PROVIDERS: PCP Student in an Organized Health Care Education/Training Program; Visit Provider Radiology Diagnostic Radiology | DX: N83.299 Other ovarian cyst, unspecified side (principal) | CPT/HCPCS: 72197 ==

== ENCOUNTER 2025-07-05 13:35 | Outpatient (REF) | payer OTHER, SELFPAY ==
--- NOTE | ~2025-07-05 | MR_ITS ---
EXAMINATION: MR PELVIS WITHOUT AND WITH CONTRAST CLINICAL INFORMATION: N83.299. Ovarian cyst, unspecified. COMPARISON: Correlated to ultrasound pelvis dated June 01, 2025. TECHNIQUE: Multiplanar, multisequence MRI pelvis without and following the IV contrast administration. Total of 7.5 cc of gadolinium based (Gadavist) without reported immediate complications. FINDINGS: Uterus is in anteversion flexion position and measures 7 x 4 x 5 cm. The junctional zone measures 3 mm. The cervix measures 3 cm maximal length with the complex less than 14 mm intrinsic hyperintense T1, nonenhancing cystic lesions. Heterogeneous enhancement of the myometrium without discrete fibroids. The right ovary measures 2 x 2 x 4 cm with scattered follicles. No dominant cystic lesion. No enhancing mass. Left ovary measures 3 x 2 x 3 cm with scattered follicles. No dominant cystic lesion. No enhancing mass. Trace amount of free fluid in the cul-de-sac. The included vessels are patent. The bony pelvis demonstrates no bone marrow signal abnormality or enhancing lesion. Nonspecific bilateral prominent inguinal lymph nodes. Distal abdominal aorta and iliac arteries are patent without gross aneurysm. The muscles are symmetric without enhancing lesion. Bladder is fluid-filled without enhancing lesion. MR/MR pelvis wo/w con IMPRESSION: Probable hemorrhagic nabothian cysts, cervix. No ovarian mass or dominant cystic lesion. No gross uterine fibroid.. Electronically signed by: Jose Manuel Carranza MD 07/05/2025 03:30 PM BROCK
--- OUTSIDE RECORDS SUMMARY | 2025-07-05 16:07 | XMS_ITS | Patient Health Record ---
Author Organization [facility] Address [address] [place] [address] Care Team Providers Care Food Selector Name Role Phone CAMRYN CYR Primary Care Provider Unavailable Bhavana Louie Unavailable [phone] Allergies Allergen (clinical drug ingredient) Drug/Non Drug [...] W/U Status Risk Notes Problem Asthma (disorder) (510135295) Asthma, unspecified, unspecified status (493.90) Active confirmed Major Problem Dysmenorrhea (857484808) Dysmenorrhea (625.3) Active confirmed Diag Problem Light and infrequent menstruation (738863850) Scanty or infrequent menstruation (626.1) Active confirmed Major Problem Gynecological examination normal (156561514827134) Routine gynecological examination (V72.31) Active confirmed Major Plan Of Treatment Pending Test Test Name Order Date Urinalysis 06/11/2017 THIN PREP, HPV IF ASCUS (21-29YR) 2017 Insurance Providers Payer Name Payer Address Payer Phone Subscriber Number Group Number Insured Name Patient Relationship to Insured Coverage Start Date Coverage End Date [facility] [address] [place] [address] [phone] [id number] CJ ROGER Spouse - patient is the spouse of the insured Medical (General) History Medical History History ICD Code Degenerative Spine Disease Scanty or infrequent menstruation 626.1 Dysmenorrhea, unspecified N94.6 Other asthma J45.998 Oligomenorrhea, unspecified N91.5 Surgical History Surgery Date(Month/Year) [place] Teeth Adenoidectomy Eear Tubes Hospitalization History Reason Date(Month/Year) See Surgical Hx
--- OUTSIDE RECORDS SUMMARY | 2025-07-05 16:07 | XMS_ITS | Clinical Summary ---
Author Organization [facility] [address] [facility] Address [address] [place] [address] Phone Care Team Providers Care Job Setter Honing Name Role Phone Aye Juarez Primary Care [...] in first trimester 11/29/2024 Overview (12/01/2024): 1. [facility] site: [facility] ObGyn: [address] [place] [address] ([phone]) 2. Delivery site: [facility] 3. Mobile Mommas: No 4. 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 For example, child adolescent care or elderly care for an older adult? 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 Rosina David [facility] BLOOD ORDERABLES Final Result [facility] [address] [place] [address], from Last 3 Months or Most Recently Relevant to Health Maintenance Insurance [facility] [address] [place] [address] Care Teams Job Setter Honing Relationship Specialty Start Date End Date Aye Juarez PA [address] [facility] [address] [place] [address] PCP - General 12/05/24
--- OUTSIDE RECORDS SUMMARY | 2025-07-05 16:08 | XMS_ITS | Data Portability ---
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 Provider was located in the office. [...] panel, serum 2024 025 [email or web address] [facility], [address], [place] , [place], [address], 5 15:19:11 CMP, serum or plasma 2024 025 [email or web address] [facility], [address], [address], [place], [address], 5 15:19:11 CBC w/ auto diff 2024 025 SOM [facility] (Centralized Electronic Ordering - All Locations), Patient Can Go To The Location Of Their Choice, 5 11:58:55 TSH + free T4, serum 2024 025 [email or web address] [facility] (Centralized Electronic Ordering - All Locations), Patient Can Go To The Location Of Their Choice, [address] 5 15:19:11 Referral psychia trist referra l - pt is looking to get a formal evaluat ion for ADHD 2024 025 [email or web address] Vaibhav Sun MD, [address], [facility] [address], [place], [address], 5 10:21:46 gynecol ogist referra l - CT finding s of rupture d adnexal cysts with trace free pelvic fluid [email or web address] [place] [address] Women's Health Photographic Reproduction Technician, [address] [place] [address], [address], [place], [address], 5 09:38:40 gastroe nterolo gist referra l - was seen at [facility] for hemorrh oids. rec. referra l to GI 2024 025 jasmin Howard MD, [address] [facility], [place], [address], 5 10:41:56 Procedures None recorde d. Surgeries None recorde d. Imaging XR, hip + pelvis, bilater al - left hip pain worse since 04/01, diff walking , laying on it, sleepin g etc. radiate s into her groin 2023 [facility]24 [facility] [address] [place], [address], 4 09:31:01 XR, lumbar spine - low back pain into left hip and groin 2023 024 [facility], [address] [place], [address], 4 17:13:38 Medication Orders albuter ol sulfate HFA 90 mcg/act uation aerosol inhaler [address]/Pharmacy #[id number], [address] [place], [address], 5 15:19:11 Symbico rt 160 mcg-4.5 mcg/act uation HFA aerosol inhaler [address]/Pharmacy [facility]1157, [address] [place], [address], 5 15:19:11 Flonase Allergy Relief 50 mcg/act uation nasal spray,s uspensi on 2024 025 [address] [place], [address], 5 15:19:11 tizanid ine [address] mg tablet [address] [facility]/Pharmacy #1157, [address] [place], [address], 5 15:00:06 meloxic am 15 mg tablet 2023 025 [facility] [address] [place], [address], 5 09:57:56 cyclobe nzaprin e 10 mg tablet [address] [facility]arm[facility] #1157, [address] [place], [address], 5 09:57:38 Patient TargetsNo targets recorded. Patient Instructions Encounter Date Encounter Id Patient Instructions Last Modified By Organization Details Last Modified Time 04/21/2024 [id number] sciatica: exercises [email or web address] Not available 04/21/2024 15:06:06 sciatica: exercises [email or web address] Not available 04/21/2024 15:06:06 sciatica: care instructions [email or web address] Not available 04/21/2024 15:06:06 piriformis syndrome: exercises [email or web address] Not available 04/21/2024 15:06:06 piriformis syndrome: care instructions [email or web address] Not available 04/21/2024 15:06:06 To call or return for worsening or concerns [email or web address] Not available 04/21/2024 15:49:15 08/15/2024 [id number] hemorrhoids: care instructions Not available 08/15/2024 10:15:36 10/12/2024 [id number] To call or return for worsening or concerns [email or web address] Not available 10/12/2024 15:41:14 12/14/2024 [id number] [facility] follow up visit, all current and discharge medications (OTC, herbal therapies, supplements) reviewed and reconciled with patient and or caregiver, including potential side effects, drug interactions, instructions, and the consequences of not taking medication. Reviewed potential barriers to medication adherence, such as side effects from medication or cost of medication. 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 rec. referral to GI Referring Physician: Family Adela [facility], Encounter Date: 08/15/2024 Metal Riveting Machine Operator Referral for Cy st of ovary CT [...] HCG quant 1562 mIU/m L Not Available [facility] [address] [place], [address], 12/05/2024 12:41:52 12/06/19 25 12/05/2024 HCG, QUANT ITATI VE note See Report [facility], [address], [place], [place] [address] Not Available [address], [address], 12/05/2024 12:41:52 12/02/1912/01/2024 CBC WITH AUTO DIFFE RENTI AL WBC 11.7 K/mcL 4.8-10 .8 high Not Available [address], [address], 12/01/2024 17:46:12 12/02/19 25 12/01/2024 CBC WITH AUTO DIFFE RENTI AL RBC 4.70 M/mcL 3.80-4 .80 Not Available [address], [address], 12/01/2024 17:46:12 12/02/19 25 12/01/2024 CBC WITH AUTO DIFFE RENTI AL hemoglobin 15.0 g/dL 11.5-1 6.0 Not Available [address], [address], 12/01/2024 17:46:12 12/02/19 25 12/01/2024 CBC WITH AUTO DIFFE RENTI AL hematocrit 43.5 % 35.0-4 7.0 Not Available [address], [address], 12/01/2024 17:46:12 12/02/19 25 12/01/2024 CBC WITH AUTO DIFFE RENTI AL MCV 91.8 fL 79.0-9 8.0 Not Available [address], [address], 12/01/2024 17:46:12 12/02/19 25 12/01/2024 CBC WITH AUTO DIFFE RENTI AL MCH 31.6 pcg 27.0-3 2.0 Not Available [address], [address], 12/01/2024 17:46:12 12/02/1912/01/2024 CBC WITH AUTO DIFFE RENTI AL MCHC 34.5 g/dL 32.0-3 7.0 Not Available [address], [address], 12/01/2024 17:46:12 12/02/19 25 12/01/2024 CBC WITH AUTO DIFFE RENTI AL RDW 13.4 % 11.0-1 5.0 Not Available [address], [address], 12/01/2024 17:46:12 12/02/1912/01/2024 CBC WITH AUTO DIFFE RENTI AL platelets 488 K/mcL 130-40 0 high Not Available [address], [address], 12/01/2024 17:46:12 12/02/19 25 12/01/2024 CBC WITH AUTO DIFFE RENTI AL MPV 8.8 fL 7.0-11 .0 Not Available [address], [address], 12/01/2024 17:46:12 12/02/1912/01/2024 CBC WITH AUTO DIFFE RENTI AL NRBC 0.0 % <1.0 Not Available [address], [address], 12/01/2024 17:46:12 12/02/19 25 12/01/2024 CBC WITH AUTO DIFFE RENTI AL NRBC absolute 0.00 K/mcL <0.10 Not Available [address], [address], 12/01/2024 17:46:12 12/02/19 25 12/01/2024 CBC WITH AUTO DIFFE RENTI AL neutrophils relative 64.2 % Not Available [address], [address], 12/01/2024 17:46:12 12/02/1912/01/2024 CBC WITH AUTO DIFFE RENTI AL lymphocytes relative 19.7 % Not Available [address], [address], 12/01/2024 17:46:12 12/02/19 25 12/01/2024 CBC WITH AUTO DIFFE RENTI AL monocytes relative 9.1 % Not Available [address], [address], 12/01/2024 17:46:12 12/02/1912/01/2024 CBC WITH AUTO DIFFE RENTI AL eosinophils relative 6.1 % Not Available [address], [address], 12/01/2024 17:46:12 12/02/19 25 12/01/2024 CBC WITH AUTO DIFFE RENTI AL basophils relative 0.6 % Not Available [address], [address], 12/01/2024 17:46:12 12/02/19 25 12/01/2024 CBC WITH AUTO DIFFE RENTI AL immature granulocytes relative 0.3 % Not Available [address], [address], 12/01/2024 17:46:12 12/02/19 25 12/01/2024 CBC WITH AUTO DIFFE RENTI AL neutrophils absolute 7.52 K/mcL 1.50-7 .00 high Not Available [address], [address], 12/01/2024 17:46:12 12/02/19 25 12/01/2024 CBC WITH AUTO DIFFE RENTI AL lymphocytes absolute 2.31 K/mcL 1.00-5 .00 Not Available [address], [address], 12/01/2024 17:46:12 12/02/19 25 12/01/2024 CBC WITH AUTO DIFFE RENTI AL monocytes absolute 1.07 K/mcL 0.20-1 .00 high Not Available [address], [address], 12/01/2024 17:46:12 12/02/19 25 12/01/2024 CBC WITH AUTO DIFFE RENTI AL eosinophils absolute 0.71 K/mcL 0.00-0 .50 high Not Available [address], [address], 12/01/2024 17:46:12 12/02/19 25 12/01/2024 CBC WITH AUTO DIFFE RENTI AL basophils absolute 0.07 K/mcL 0.00-0 .20 Not Available [address], [address], 12/01/2024 17:46:12 12/02/19 25 12/01/2024 CBC WITH AUTO DIFFE RENTI AL immature granulocytes absolute 0.04 K/mcL 0.00-0 .03 high Not Available [address], [address], 12/01/2024 17:46:12 12/02/1912/01/2024 CBC WITH AUTO DIFFE RENTI AL note See Report high [facility], [address], [place], [place] [address] Not Available [address], [address], 12/01/2024 17:46:12 12/02/1912/01/2024 HEPAT ITIS B SURFA CE ANTIG EN WITH REFLE X TO CONFI RMATI ON hepatitis B surface Ag Negati ve negati ve Not Available [address], [address], 12/01/2024 18:39:01 12/02/19 25 12/01/2024 HEPAT ITIS B SURFA CE ANTIG EN WITH REFLE X TO CONFI RMATI ON note See Report [facility], [address], [place], [facility] [place] [address] Not Available [address], [address], 12/01/2024 18:39:01 12/02/19 25 12/01/2024 RUBEL LA ANTIB ALESHIA IGG rubella IgG quant 44.8 I_uni t/mL >=10.0 Not Available [address], [address], 12/01/2024 18:39:09 12/02/19 25 12/01/2024 RUBEL LA ANTIB ALESHIA IGG rubella IgG antibody interp Positi ve positi ve Not Available [address], [address], 12/01/2024 18:39:09 12/02/19 25 12/01/2024 RUBEL LA ANTIB ALESHIA IGG note See Report [facility], [address], [place], [facility] [place] [address] Not Available [address], [address], 12/01/2024 18:39:09 12/02/19 25 12/01/2024 HIV 1, 2 ANTIB ALESHIA, P24 ANTIG EN WITH REFLE X TO DIFFE RENTI ATION HIV combo Ab/Ag Negati ve negati ve Not Available [address], [address], 12/01/2024 19:10:04 12/02/19 25 12/01/2024 HIV 1, 2 ANTIB ALESHIA, P24 ANTIG EN WITH REFLE X TO DIFFE RENTI ATION note See Report [facility], [address], [place], [facility] [place] [address] Not Available [address], [address], 12/01/2024 19:10:04 12/02/19 25 12/01/2024 HEPAT ITIS C ANTIB ALESHIA hepatitis C antibody Negati ve negati ve Not Available [address], [address], 12/01/2024 19:10:12 12/02/19 25 12/01/2024 HEPAT ITIS C ANTIB AELSHIA note See Report [facility], [address], [place], [facility] [place] [address] Not Available [address], [address], 12/01/2024 19:10:12 12/02/19 25 12/01/2024 DRUG ABUSE SCREE N EXPAN DED WITH REFLE X CONFI RMATI ON, URINE amphetamine screen, ur Negati ve negati ve Certa in OTC medic ation s conta ining ephed rine, pheny lephr ine, pseud oephe drine and pheny lprop anola mine can cause false posit margoth resul ts. Not Available [address], [address], 12/01/2024 19:32:03 12/02/19 25 12/01/2024 DRUG ABUSE SCREE N EXPAN DED WITH REFLE X CONFI RMATI ON, URINE barbiturate screen, ur Negati ve negati ve Not Available [address], [address], 12/01/2024 19:32:03 12/02/19 25 12/01/2024 DRUG ABUSE SCREE N EXPAN DED WITH REFLE X CONFI RMATI ON, URINE benzodiazepi ne screen, ur Negati ve negati ve Not Available [address], [address], 12/01/2024 19:32:03 12/02/19 25 12/01/2024 DRUG ABUSE SCREE N EXPAN DED WITH REFLE X CONFI RMATI ON, URINE cocaine screen, ur Negati ve negati ve Not Available [address], [address], 12/01/2024 19:32:03 12/02/19 25 12/01/2024 DRUG ABUSE SCREE N EXPAN DED WITH REFLE X CONFI RMATI ON, URINE opiate screen, ur Negati ve negati ve Not Available [address], [address], 12/01/2024 19:32:03 12/02/19 25 12/01/2024 DRUG ABUSE SCREE N EXPAN DED WITH REFLE X CONFI RMATI ON, URINE cannabinoid (THC) screen, ur Positi ve negati ve abnormal Speci mens from patie nts takin g panto prazo le sodiu m (Prot lizette) have been shown to produ ce false posit margoth resul ts. Not Available [address], [address], 12/01/2024 19:32:03 12/02/19 25 12/01/2024 DRUG ABUSE SCREE N EXPAN DED WITH REFLE X CONFI RMATI ON, URINE fentanyl, ur Negati ve negati ve Not Available [address], [address], 12/01/2024 19:32:03 12/02/19 25 12/01/2024 DRUG ABUSE SCREE N EXPAN DED WITH REFLE X CONFI RMATI ON, URINE oxycodone screen, ur Negati ve negati ve Not Available [address], [address], 12/01/2024 19:32:03 12/02/19 25 12/01/2024 DRUG ABUSE SCREE N EXPAN DED WITH REFLE X CONFI RMATI ON, URINE note See Report [facility], [address], [place], [facility] [place] [address] Not Available [address], [address], 12/01/2024 19:32:03 12/02/19 25 12/01/2024 TREPO NEMA PALLI DUM ANTIB ALESHIA WITH REFLE X TO RPR AND PARTI CURT AGGLU TINAT ION T. pallidum antibodies Negati ve negati ve Not Available [address], [address], 12/01/2024 20:38:13 12/02/19 25 12/01/2024 TREPO NEMA PALLI DUM ANTIB ALESHIA WITH REFLE X TO RPR AND PARTI CURT AGGLU TINAT ION note See Report [facility], [address], [place], [facility] [place] [address] Not Available [address], [address], 12/01/2024 20:38:13 12/02/19 25 12/01/2024 TYPE AND SCREE N ABO group B Not Available [address], [address], 12/02/2024 09:53:15 12/02/19 25 12/01/2024 TYPE AND SCREE N Rh type Positi ve Not Available [address], [address], 12/02/2024 09:53:15 12/02/19 25 12/01/2024 TYPE AND SCREE N antibody screen Negati ve Not Available [address], [address], 12/02/2024 09:53:15 12/02/19 25 12/01/2024 TYPE AND SCREE N note See Report [facility], [address], [place], [facility] [place] [address] Not Available [address], [address], 12/02/2024 09:53:15 12/02/19 25 12/01/2024 VARIC REGLA LENASTE R ANTIB ALESHIA IGG varicella IgG Positi ve positi ve Not Available [address], [address], 12/02/2024 11:01:34 12/02/19 25 12/01/2024 VARIC REGLA ZOSTE R ANTIB ALESHIA IGG varicella zoster IgG 12.90 S/co >=1.00 Not Available [address], [address], 12/02/2024 11:01:34 12/02/19 25 12/01/2024 VARIC REGLA ZOSTE R ANTIB ALESHIA IGG note See Report [facility], [address], [facility] [place] [address] Not Available [address], [address], 12/02/2024 11:01:34 12/02/19 25 12/01/2024 CULTU RE URINE .note See Note Origi nal Order ing Provi rafa: ARTHUR Marcial [facility] - [facility] - [address], [facility] [place] [address] Not Available [address], [address], 12/02/2024 14:43:33 12/02/19 25 12/01/2024 CULTU RE URINE culture, urine <10,00 0 CFU/mL gram positi ve cocci, insign ifican t count, no furthe r workup Not Available [address], [address], 12/02/2024 14:43:33 04/21/20 24 04/21/2024 XR, lumba [...] change limite d to L5-S1. . WSN: [id number] Orderi ng Physic lola: Arturo Bunch Dictat ed By: Ryan Knowles MD Dictat ed Date/T maria guadalupe: 5:10 pm Review ed By: Ryan Knowles MD Signed By: Ryan Knowles MD Signed Date/T maria guadalupe: 5:10 pm Transc ribed By: MONAE Transc ribed Date/T maria guadalupe: 5:09 pm Patien t Class: Outpat ient [facility] (Outpt Imaging) [address] [place], [address], 04/22/2024 11:04:10 04/22/20 24 04/21/2024 xr hip bilat 3-4 views w/AP pelvi s XR Hip Bilat 3-4 Views W/AP Pelvis Reason : pain COMPAR DANA: None. FINDIN GS: There is no fractu re or disloc ation. Normal hips and sacroi liac joints . IMPRES ELISA: Normal . I have person ally review ed the images and I agree with this report . WSN: [id number] Orderi ng Physic lola: Arturo Bunch Dictat ed By: Deann Gannon MD Dictat ed Date/T maria guadalupe: 2:04 pm Review ed By: Nata Anderson MD Signed By: Nata Anderson MD Signed Date/T maria guadalupe: 2:09 pm Transc ribed By: MONAE Transc ribed Date/T maria guadalupe: 1:45 pm Patien t Class: Outpat ient [facility] (Outpt Imaging) [address], [place], [address], 04/22/2024 15:45:52 08/09/19 25 08/09/2024 CT, abdom en + pelvi s, w/ contr ast No observ ation record ed. [email or web address] [facility] (Medical Records) [address] [place], [address], 08/10/2024 10:00:15 06/01/20 25 06/01/2025 US, trans vagin al No observ ation record ed. [email or web address] [facility] (Medical Records) [address] [place], [address], 06/13/2025 11:39:30 07/05/20 25 07/05/2025 imagi ng/di agnos tic resul t No observ ation record ed. [facility] (Medical Records) [address] [place], [address], 07/05/2025 15:34:31 Result Notes Documentation Provider Name and Address [...] 3. Degenerative change limited to L5-S1.. WSN: [id number] Ordering Physician: Donny Bunch Dictated By: Knowles Ryan HERRON Dictated Date/Time: 04/21/24 5:10 pm Reviewed By: Ryan Knowles MD Signed By: Ryan Knowles MD Signed Date/Time: 04/21/24 5:10 pm Transcribed By: MONAE Transcribed Date/Time: 04/21/24 5:09 pm Patient Class: Outpatient Donny Steward, [facility] [address] [address], [place], [address], [facility] 04/22/2024 10:50:33 Problems Name Problem SNOMED Code Status Onset Date Resolution Date Notes Provider Name and Address Organization Details Recorded Time Acute pharyngi tis 934105742 Completed 07/14/2019 Galina Terry MA [facility] 9 11:14:58 Allergic rhinitis 03701803 Active Donny Steward [address] [address], [place], [address], [facility] 6 09:45:34 Asthma 231550852 Active Donny Steward [address] [address], [place], [address], [facility] 6 09:45:34 Acute asthma 833231834 Active Donny Steward [address] [address], [place], [address], [facility] 6 09:45:34 Dysmenor rebeca 890880934 Active Donny Steward [address] [address], [place], [address], [facility] 6 09:45:34 Malaise and fatigue 137819026 Marvin Steward [address] [address], [place], [address], [facility] 6 09:45:34 Low back pain [id number] Marvin Steward [address] [place], [address], [facility] 6 09:45:34 Sprains and strains of joints and adjacent muscles Active Donny Steward [facility] [address] [facility] [address], [place], [address], [facility] 6 09:45:34 Patient status finding [id number] Completed 07/14/2019 ANABEL Gottlieb, [facility] 9 11:15:13 Otitis media 60912763 Completed 05/15/2020 ANABEL Haque, [facility] 0 12:55:32 Pain in thoracic spine 087374492 Active Donny Steward [address], [place], [address], [facility] 6 09:45:34 Pneumoni a 242991223 Active Donny Steward [address], [place], [address], [facility] 6 09:45:34 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 Donny Steward [address], [place], [address], [facility] 6 09:45:34 Tinnitus 88779508 Active Donny Steward [address], [place], [address], [facility] 6 09:45:34 Allergy Active Donny Steward [address], [place], [address], [facility] 6 09:45:34 Cough 84435626 Completed 07/14/2019 ANABEL Gottlieb, [facility] 9 11:15:04 Upper respirat ory infectio n 07099714 Completed 07/14/2019 Galina Terry [place] null, [facility] 9 11:15:26 Fatigue 54804297 Active Donny Steward, [facility] [address], [facility] [place], [address], [facility] 6 09:45:34 Amenorrh ea 62311410 Active Donny Steward, [address], [place], [address], [facility] 6 09:45:34 Degenera tion of lumbar interver tebral disc 15672120 Active Donny Steward, [address], [place], [address], [facility] 6 09:45:34 Snoring 10696354 Active Donny Steward, [address], [place], [address], [facility] 6 09:45:34 Administ ration of bacteria l and viral vaccine Completed 201002/14/2014 RECORDED 12/10/19 11 9:51AM BY CAMRYN Bello MD, OFFICE VISIT Donny Steward [address], [place], [address], [facility] 6 09:45:34 Administ ration of bacteria l and viral vaccine Completed 201003/09/2014 RECORDED 12/10/19 11 9:51AM BY CAMRYN Bello MD, OFFICE VISIT Donny Steward, [address], [place], [address], [facility] 6 09:45:34 Administ ration of bacteria l and viral vaccine Completed 201003/10/2014 RECORDED 12/10/19 11 9:51AM BY CAMRYN Bello MD, OFFICE VISIT Donny Steward, [facility] [address] [facility] [address], [place], [address], [facility] 6 09:45:34 Dysfunct ional uterine bleeding Completed 201202/14/2014 RECORDED 08/30/19 13 2:03PM BY GILLES LAZARO MA, LUISA ON/ADDEN DUM Donny Steward, [facility] [address] [facility] [address], [place], [address], [facility] 6 09:45:34 Acute sinusiti s 39065112 Completed 201202/14/2014 RECORDED 08/30/19 13 2:03PM BY GILLES LAZARO MA, LUISA ON/ADDEN DUM Donny Steward, [facility] [address] [facility] [address], [place], [address], [facility] 6 09:45:34 Acute upper respirat ory infectio n 37115735 Completed 201202/14/2014 IMPRESSI ON: LUNGS WITH WHEEZES AND CRACKLES THROUGHO UT. WILL START ON ABX AND PREDNISO NE. CXR TODAY. F/U NEXT WEEK FOR RE-EVAL, SOONER PRN IF SXS WORSEN IN THE INTERIM. WORK NOTE GIVEN.; RECORDED 08/30/19 13 2:03PM BY GILLES LAZARO MA, LUISA ON/ADDEN DUM Donny Steward, [facility] [address] [facility] [address], [place], [address], [facility] 6 09:45:34 Toxic effect of venom 54208330 Completed 201202/14/2014 IMPRESSI ON: PT TO OFFICE EQUIPMENT TECHNICIAN AND CARRY WITH SHANDA, KNOWS HOW TO USE IT; RECORDED 08/30/19 13 2:03PM BY GILLES LAZARO MA, ANNOTATI ON/ADDEN DUM Donny Steward, [facility] [employer] [facility] [address], [place], [address], [facility] 6 09:45:34 Cough 69572570 Completed 201202/14/2014 IMPRESSI ON: SOUNDS LIKE ALLERGIE S VS URI TRIGERRI NG ASTHMA SYMPTOMS . WITH FEVER MOST LIKELY THE LATTER; RECORDED 08/30/19 13 2:03PM BY GILLES LAZARO MA, LUISA ON/ADDEN DUM [place]ina Terry MA null, [facility] 9 11:15:04 Otalgia 14495758 Completed 201202/14/2014 IMPRESSI ON: FROM EFFUSION FORM ALLERGIE S TX BELOW; RECORDED 08/30/19 13 2:02PM BY GILLES LAZARO MA, LUISA ON/ADDEN DUM Donny Steward, [facility] [address], [place], [address], [facility] 6 09:45:34 Well child 361084653 Completed 201202/14/2014 RECORDED 08/30/19 13 2:03PM BY GILLES LAZARO MA, LUISA ON/ADDEN DUM Donny Steward, [facility] [address], [place], [address], [facility] 6 09:45:34 Dysfunct ional uterine bleeding Completed 201203/09/2014 RECORDED 08/30/19 13 2:03PM BY GILLES LAZARO MA, LUISA ON/ADDEN DUM Donny Steward, [employer] [facility] [address], [place], [address], [facility] 6 09:45:34 Acute sinusiti s 89659236 Completed 201203/09/2014 RECORDED 08/30/19 13 2:03PM BY GILLES LAZARO MA, ANNOTATI ON/ADDRANJITH Steward, [facility] [address] [facility] [address], [place], [address], [facility] 6 09:45:34 Acute upper respirat ory infectio n 45026353 Completed 201203/09/2014 IMPRESSI ON: LUNGS WITH WHEEZES AND CRACKLES THROUGHO UT. WILL START ON ABX AND PREDNISO NE. CXR TODAY. F/U NEXT WEEK FOR RE-EVAL, SOONER PRN IF SXS WORSEN IN THE INTERIM. WORK NOTE GIVEN.; RECORDED 08/30/19 13 2:03PM BY IGLLES LAZARO MA, LUISA ON/SHALONDA Steward, [employer] [facility] [address] [address], [place], [phone], [facility] 6 09:45:34 Toxic effect of venom [id number] Completed 201203/09/2014 IMPRESSI ON: PT TO OFFICE EQUIPMENT TECHNICIAN AND CARRY WITH [employer]ANDA, KNOWS HOW TO USE IT; RECORDED 08/30/19 13 2:03PM BY GILLES LAZARO MA, ANNOTATI ON/SHALONDA Steward, [employer] [facility] [address] [address], [place], [address], [facility] 6 09:45:34 Cough [id number] Completed 201203/09/2014 IMPRESSI ON: SOUNDS LIKE ALLERGIE S VS URI TRIGERRI NG ASTHMA SYMPTOMS . WITH FEVER MOST LIKELY THE LATTER; RECORDED 08/30/19 13 2:03PM BY GILLES LAZARO MA, ANNOTATI ON/SHALONDA Terry MA null, [facility] 9 11:15:04 Otalgia [id number] Completed 201203/09/2014 IMPRESSI ON: FROM EFFUSION FORM ALLERGIE S TX BELOW; RECORDED 08/30/19 13 2:02PM BY GILLES LAZARO MA, ANNOTATI ON/SHALONDA Steward, [facility] [address] [address], [place], [address], [facility] 6 09:45:34 Well child [id number] Completed 201203/09/2014 RECORDED 08/30/19 13 2:03PM BY GILLES LAZARO MA, LUISA ON/ADDRANJITH Steward, [facility] [address], [place], [address], [facility] 6 09:45:34 Dysfunct ional uterine bleeding Completed 201203/10/2014 RECORDED 08/30/19 13 2:03PM BY GILLES LAZARO MA, LUISA ON/SHALONDA Steward, [employer] [facility] [address], [place], [address], [facility] 6 09:45:34 Acute sinusiti s [id number] Completed 201203/10/2014 RECORDED 08/30/19 13 2:03PM BY GILLES LAZARO MA, LUISA ON/SHALONDA Steward, [employer] [facility] [address], [place], [address], [facility] 6 09:45:34 Acute upper respirat ory infectio n [id number] Completed 201203/10/2014 IMPRESSI ON: LUNGS WITH WHEEZES AND CRACKLES THROUGHO UT. WILL START ON ABX AND PREDNISO NE. CXR TODAY. F/U NEXT WEEK FOR RE-EVAL, SOONER PRN IF SXS WORSEN IN THE INTERIM. 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 WITH FEVER MOST LIKELY THE LATTER; RECORDED 08/30/19 13 2:03PM BY GILLES LAZARO MA, ANNOTATI ON/ANABEL Kapoor, [facility] 9 11:15:04 Otalgia 05013711 Completed 201203/10/2014 IMPRESSI ON: FROM EFFUSION FORM ALLERGIE S TX BELOW; RECORDED 08/30/19 13 2:02PM BY GILLES LAZARO MA, ANNOTATI ON/SHALONDA Steward, [facility] [address] [address], [place], [address], [facility] 6 09:45:34 Well child [id number] Completed 201203/10/2014 RECORDED 08/30/19 13 2:03PM BY GILLES LAZARO MA, ANNOTATI ON/SHALONDA Steward, [facility] [address] [address], [place], [address], [facility] 6 09:45:34 Acute pharyngi tis [id number] Completed 201202/14/2014 IMPRESSI ON: SOUNDS VIRAL, AND SECONDAR Y TO POST NASAL DRIP. WILL R/O STREP. OTHERWIS E SUPPORTI VE TX ADVISED. CALL INB/WORS E.; RECORDED 09/02/19 13 3:50PM BY SONJA GRESHAM MA, LUISA ON/SHALONDA Terry MA null, [facility] 9 11:14:58 Influenz a vaccine needed [id number] 06 Completed 201202/14/2014 RECORDED 09/02/19 13 3:59PM BY SONJA GRESHAM MA, OFFICE VISIT YONATHAN Bailon [address] [facility], [place], [address], [facility] [place] 6 09:45:34 Acute laryngit is 4282323 Completed 201202/14/2014 IMPRESSI ON: SOOTHING LIQUIDS, WARM SALT WATER GARGLING ADVISED ALONG WITH VOICE REST.; RECORDED 09/02/19 13 3:50PM BY SONJA GRESHAM MA, ANNOTATI ON/ADDYONATHAN Lechuga [address] [place] [address], [facility] [place], [address], [facility] [place] 6 09:45:34 Otitis media 46403339 Completed 201202/14/2014 IMPRESSI ON: CONTINU ABX, CALL IF NO IMPROVEM ENT OVER NEXT 7-10 DAYS.; RECORDED 09/02/19 13 3:50PM BY SONJA GRESHAM MA, ANNOTATI ON/SHALONDA pickett MA [facility] 0 12:55:32 Influenz a vaccine needed [id number] 06 Completed 201203/09/2014 RECORDED 09/02/19 13 3:59PM BY SONJA GRESHAM MA, OFFICE VISIT YONATHAN Bailon [facility] [address], [place], [address], [facility] [place] 6 09:45:34 Acute laryngit is [id number] Completed 201203/09/2014 IMPRESSI ON: SOOTHING LIQUIDS, WARM SALT WATER GARGLING ADVISED ALONG WITH VOICE REST.; RECORDED 09/02/19 13 3:50PM BY SONJA GRESHAM MA, ANNOTATI ON/ADDYONATHAN Lechuga [facility] [address], [place], [address], [facility] 6 09:45:34 Influenz a vaccine needed [id number] 06 Completed 201203/10/2014 RECORDED 09/02/19 13 3:59PM BY SONJA GRESHAM MA, OFFICE VISIT YONATHAN Bailon [address] [address], [place], [address], [facility] 6 09:45:34 Acute laryngit is 6144093 Completed 201203/10/2014 IMPRESSI ON: SOOTHING LIQUIDS, WARM SALT WATER GARGLING ADVISED ALONG WITH VOICE REST.; RECORDED 09/02/19 13 3:50PM BY SONJA GRESHAM MA, LUISA ON/SHALONDA Steward [employer] [facility] [address] [address], [place], [address], [facility] 6 09:45:34 Renewal of prescrip tion Completed 201202/14/2014 RECORDED 12/04/19 13 3:16PM BY SONJA GRESHAM MA, LUISA ON/SHALONDA Steward, [employer] [address] [address], [place], [address], [facility] 6 09:45:34 Adult health examinat ion Completed 201202/14/2014 IMPRESSI ON: PT NEEDS PAP, I MARTINEZ ET UP WITH NATUROPATHIC ONCOLOGY PROVIDER, EXERCISI ES, NOT SEXUALLY ACITVE, NO HIGH RISK ACTIVITY ; RECORDED 12/04/19 13 3:16PM BY SONJA GRESHAM MA, RADHAATI ON/SHALONDA Steward [employer] [address] [address], [place], [address], [facility] 6 09:45:34 Lymphade nopathy [id number] Completed 201202/14/2014 RESOLVED DATE: 12/04/19 13; IMPRESSI ON: RESOLVED ; RECORDED 12/04/19 13 3:43PM BY TITA CONCEPCION, LUISA ON/SHALONDA Steward, [employer] [facility] [address], [place], [address], [facility] 6 09:45:34 Renewal of prescrip tion Completed 201203/09/2014 RECORDED 12/04/19 13 3:16PM BY SONJA GRESHAM MA, LUISA ON/ADDRANJITH Steward, [employer] [facility] [address], [place], [address], [facility] 6 09:45:34 Adult health examinat ion Completed 201203/09/2014 IMPRESSI ON: PT NEEDS PAP, I MARTINEZ ET UP WITH NATUROPATHIC ONCOLOGY PROVIDER, EXERCISI ES, NOT SEXUALLY ACITVE, NO HIGH RISK ACTIVITY ; RECORDED 12/04/19 13 3:16PM BY SONJA GRESHAM MA, LUISA ON/SHALONDA Steward, [employer] [address] [facility] [address], [place], [address], [facility] 6 09:45:34 Lymphade nopathy [id number] Completed 201203/09/2014 RESOLVED DATE: 12/04/19 13; IMPRESSI ON: RESOLVED ; RECORDED 12/04/19 13 3:43PM BY TITA CONCEPCION, LUISA ON/SHALONDA Steward, [facility] [address] [facility], [place], [address], [facility] 6 09:45:34 Renewal of prescrip tion Completed 201203/10/2014 RECORDED 12/04/19 13 3:16PM BY SONJA GRESHAM MA, LUISA GLOVER/SHALONDA Steward, [employer] [address] [facility], [place], [address], [facility] 6 09:45:34 Adult health examinat ion Completed 201203/10/2014 IMPRESSI ON: PT NEEDS PAP, I MARTINEZ ET UP WITH NATUROPATHIC ONCOLOGY PROVIDER, EXERCISI ES, NOT SEXUALLY ACITVE, NO HIGH RISK ACTIVITY ; RECORDED 12/04/19 3:16PM BY SONJA GRESHAM MA, LUISA ON/[facility] BAYRON Steward, [employer] [facility] [facility] [address], [place], [address], [facility] 6 09:45:34 Lymphade nopathy [id number] Completed 201203/10/2014 RESOLVED DATE: 12/04/19 13; IMPRESSI ON: RESOLVED ; RECORDED 12/04/19 3:43PM BY TITA CONCEPCION, [facility] ON[facility] Donny Steward, [employer] [facility] [address], [place], [address], [facility] 6 09:45:34 Lyme disease [id number] Completed 201202/14/2014 IMPRESSI ON: EXAM TODAY DOES NO LOOK LIKE EM BUT BASED ON DESCRIPT ION YEST IT COULD HAVE BEEN. SINCE SHE ALSO HAS BEEN HAVING FLU LIKE SXS WILL TREAT FOR POSSIBLE EARLY LYME; RECORDED 12/14/19 3:05PM BY SONJA GRESHAM MA, LUISA ON/[facility] Donny Steward, [employer] [facility] [facility] [address], [place], [address], [facility] 6 09:45:34 Lyme disease [id number] Completed 201203/09/2014 IMPRESSI ON: EXAM TODAY DOES NO LOOK LIKE EM BUT BASED ON DESCRIPT ION YEST IT COULD HAVE BEEN. SINCE SHE ALSO HAS BEEN HAVING FLU LIKE SXS WILL TREAT FOR POSSIBLE EARLY LYME; RECORDED 12/14/19 3:05PM BY SONJA GRESHAM MA, LUISA ON/[facility] Donny Steward, [employer] [facility] [facility] [address], [place], [address], [facility] 6 09:45:34 Lyme disease [id number] Completed 201203/10/2014 IMPRESSI ON: EXAM TODAY DOES NO LOOK LIKE EM BUT BASED ON DESCRIPT ION YEST IT COULD HAVE BEEN. SINCE SHE ALSO HAS BEEN HAVING FLU LIKE SXS WILL TREAT FOR POSSIBLE EARLY LYME; RECORDED 12/14/19 13 3:05PM BY SONJA GRESHAM MA, LUISA ON/ADDRANJITH Steward, [facility] [address], [place], [address], [facility] 6 09:45:34 Patient status finding [id number] Completed 201202/14/2014 RECORDED 03/23/20 13 8:59AM BY GILLES LAZARO MA, LUISA ON/SHALONDA Terry MA null, [facility] 9 11:15:13 Nausea [id number] Completed 201202/14/2014 IMPRESSI ON: WILL DO SERUM HCG TO CONFIRM NO PREGNANC Y.; RECORDED 03/23/20 13 8:59AM BY GILLES LAZARO MA, RADHAATI ON/ADDEN BAYRON Steward, [facility] [address], [place], [address], [facility] 6 09:45:34 Patient status finding [id number] Completed 201203/09/2014 RECORDED 03/23/20 13 8:59AM BY GILLES LAZARO MA, ANNOTATI ON/ADDRANJITH Terry MA null, [facility] 9 11:15:13 Nausea [id number] Completed 201203/09/2014 IMPRESSI ON: WILL DO SERUM HCG TO CONFIRM NO PREGNANC Y.; RECORDED 03/23/20 13 8:59AM BY GILLES LAZARO MA, LUISA ON/ADDEN BAYRON Steward, [facility] [address], [place], [address], [facility] 6 09:45:34 Patient status finding [id number] Completed 201203/10/2014 RECORDED 03/23/20 13 8:59AM BY GILLES LAZARO MA, ANNOTATI ON/ADDEN DUM [place] Terry MA null, [facility] 9 11:15:13 Nausea [id number] Completed 201203/10/2014 IMPRESSI ON: WILL DO SERUM HCG TO CONFIRM NO PREGNANC Y.; RECORDED 03/23/20 13 8:59AM BY GILLES LAZARO MA, ANNOTATI ON/ADDEN DUM Donny Steward, [employer] [facility] [address] [facility] [facility] [address], [place], [address], [facility] 6 09:45:34 COVID-19 [id number] Completed 201908/15/2020 Removal Reason: Problem marked historic al by user [email or web address] from the COVID-19 watch flag Donny Steward, [facility] [address], [place], [address], [facility] 1 10:40:25 Generali zed anxiety disorder 77568082 Active 2019 Debbi pickett MA null, [facility] 1 10:12:16 Moderate recurren t major depressi on 07586626 Active 2019 Debbi pickett MA null, [facility] 1 10:12:34 Migraine 60536747 Active 2021 Gonzalo Mercado MD [address], [place], [address], [facility] 2 14:52:10 Anxiety 22515868 Active 2022 Donny Steward, [facility] [address] [facility], [place], [address], [facility] 3 13:19:57 Recurren t major depressi ve episodes , moderate 610610576 Active 2022 Donny Steward [facility] [address], [place], [address], [facility] 3 13:19:57 Hyperlip idemia 77533331 Active 2022 Donny Steward [facility] [address], [place], [address], [facility] 3 13:26:24 Unable to concentr ate 77021268 Active 2022 Donny Steward, [facility] [address], [place], [address], [facility] 3 13:36:31 Vitamin D deficien cy 53823482 Active 2023 YONATHAN Bailon [address], [place], [address], [facility] 4 15:55:45 Insomnia 671617151 Active 2023 YONATHAN Bailon [address], [place], [address], [facility] 4 16:16:24 Pain of left hip joint 89905558581 9100 Active 2023 YONATHAN Bailon [address], [place], [address], [facility] 4 14:53:39 Moderate persiste nt asthma 164552512 Active 2023 YONATHAN Bailon [address], [place], [address], [facility] 4 11:48:24 Spasm 88919976 Active 2024 YONATHAN Bailon [address], [place], [address], [facility] 5 15:39:17 Problem Notes None recorded. Procedures Surgical History Date Name Laterality Status Provider Name and Address Organization Details Recorded Time 06/01/20 25 ultrasonography completed Ene Molinaell [facility] 06/13/2025 11:39:23 Adenoidectomy completed Ene Molinaell [facility] 06/13/2025 11:38:24 Imaging Results None recorded. Procedure Notes None recorded. Medical Equipment None Reported. Allergies Allergen ID Allergen Name Allergen Category Reaction Reaction Severity Criticality Documentation Date Start Date Code Code System Note Provider Name and Address Organization Details Recorded Time 42925 escitalop sherwin Not available confusion severe high 10/12/2024 65363 8 [facility]Norm [facility] 5 15:17:03 568 No known allergy (situatio n) Not available Not available Not available Not available 02/14/20142011 82440 6003 SNOMED COMME NT: RECOR DED 04/22 1:35P M BY GALINA KIRK CE, OFFIC E VISIT ; Not Available [facility] 4 13:18:58 569 Robaxin medicatio n myalgias (muscle pain) Not available Not available 02/14/201422948 5 RxNorm Donny Steawrd, [facility] [address] [facility], [place], [address], [facility] 4 14:10:21 Medications Name Sig Start Date [...] sulfate HFA 90 mcg/actua tion aerosol inhaler INHALE 2 PUFFS BY MOUTH EVERY 4 HOURS DIRECTED FOR 30 DAYS 2024 active Not Available Not Available [...] completed RECORDED 12/15/19 07 9:21AM BY AMILCAR MACKENZI E, MEDICATI ON AUTO-BRYAN CTIVATIO N;THIS ORDER DISCONTI NUED PER MEDI-SPA N. Not Available Not Available Not Available apple cider vinegar 1 tablet daily 12/14 completed Unknown strength Not Available Not Available Not Available Vitamin B6 03/03 completed Not Available Not Available Not Available collagen 1 po qd 03/03 completed Not Available Not Available Not Available Junel FE 1.5 (28) 06/07 completed Not Available Not Available [...] mass index (BMI) Body weight Oxygen saturation Heart rate Body temperature Systolic And Diastolic Provider Name and Address Organization Details Last Updated DateTime 5 167.64 cm 24.1 kg/m2 88011.9 6 g 98 % 81 /min 98.6 [degF] 122/73 mm[Hg] Galina Terry MA [facility] 5 09:56:51 Date Recorded Body height Provider Name an d Address Organization Details Last Updated DateTime 10/12/2024 167.64 cm Galina Terry MA [facility] 10/12/2024 15:15:42 Date Recorded Body height Body mass index (BMI) Body weight Heart rate Oxygen saturation Body temperature Systolic And Diastolic Provider Name and Address Organization Details Last Updated DateTime 5 167.64 cm 27.1 kg/m2 66017.5 2 g 80 /min 98 % 98.2 [degF] 113/73 mm[Hg] Elisa foster MA [facility] 5 09:03:54 Date Recorded Body height Body mass index (BMI) Body weight Heart rate Oxygen saturation Body temperature Systolic And Diastolic Provider Name and Address Organization Details Last Updated DateTime 5 167.64 cm 26.3 kg/m2 85090.5 6 g 67 /min 96 % 98.2 [degF] 130/72 mm[Hg] Elisa foster MA [facility] 5 14:59:04 Date Recorded Body height Body mass index (BMI) Body weight Oxygen saturation Heart rate Body temperature Systolic And Diastolic Provider Name and Address Organization Details Last Updated DateTime 4 167.64 cm 26 kg/m2 44871.4 7 g 98 % 81 /min 98.4 [degF] 116/67 mm[Hg] Galina Terry MA [facility] 4 14:44:19 Social History Question Answer Notes LastModified by Organizat ion Details LastModified Time Tobacco Smoking Status Never Smoker Sonja vilchis [facility] 05/11/2014 13:59:39 Do You Have An [...] Or Greater Than 100 Degrees Fahrenheit? No [email or web address] Information not available 06/19/2020 Are You Or Anyone In Your Household A Health Care Provider Or Emergency Responder? No [email or web address] Information not available 06/19/2020 To The Best Of Your Knowledge Have You Been In Close Proximity To Any Individual Who Tested Positive For COVID-19? No [email or web address] Information not available 06/19/2020 Have You Recently Traveled To A COVID-19 High Risk Area Or Gathering In The Last 10 Days? No [email or web address] Information not available 08/15/2020 What Was The Date Of Your Most Recent Tobacco Screening? 03/03/2025 [email or web address] Information not available 03/03/2025 How Many Children Do You Have? 0 Information not available 06/25/2021 Do You Use Protection During Sex? Usually [email or web address] Information not available 12/30/2023 What Is Your [...] able to care for yourself independently? Yes [email or web address] Information not available 12/30/2023 What is your [...] Organization Details LastModified Time Mother Well adult Not avail able 04/29/2023 14:30:09 Mother Migraine Not available 06/25/2021 13:27:35 Father Well adult [email or web address] Not avail able 04/29/2023 14:30:09 Father Blood pressure finding 53 [email or web address] Not available 04/29 14:30:09 Father Harmful pattern of use of alcohol Not available 2020 13:27:35 Maternal Aunt Carcinoma in situ of breast Not available 04/29 14:30:09 Maternal Grandmother Hypothyroidi sm [email or web address] Not available 04/29 14:30:09 Paternal Aunt Malignant neoplasm of skin 62 [email or web address] Not available 04/29 14:30:09 Maternal Grandfather Blood pressure finding [email or web address] Not available 04/29 14:30:09 Maternal Grandfather Diabetes mellitus Not available 2020 13:27:35 Maternal Grandfather Arthritis Not available 06/04 13:27:35 Brother Myocardial infarction 36 [email or web address] Not available 04/04 14:30:09 Unspecified Relation Alzheimer's disease Not available 2020 13:27:35 Sister Migraine Not available 06/25/2021 13:27:35 Sister Anxiety disorder Not available 2020 13:27:35 Medical History Condition Response Coronary Artery Disease N Other N Gout N Kidney Stones N Blood Diseases N Hyperthyroidism N Breast Cancer N mrsa exposure N Hypothyroidism N Lung Disease N COPD N Depression Y Developmental or Behavioral Disorders N Defects or Inherited Disease N Breast Problem N Anesthesia Complications N Headaches/Migraines Y Anxiety Disorder Y Varicose Veins N Muscle, Joint, or Bone Problems Y Obesity N Vision or Eye Problems N Arthritis N Head Injury/Concussion N Infertility N Polyps N Mental Disorder N Congenital Anomalies N Acid Reflux (GERD) N Cancer N Stroke N ADHD N Endometriosis N High Cholesterol N Liver Disease N Fibromyalgia N Headaches N Kidney Disease N Heart Problems N [...] mL dose 06/04/20 21 completed ANABEL Jay, [facility] 11/20/2021 13:27:49 COVID-19, mRNA, LNP-S, PF, 30 mcg/0.3 mL dose 10/06/19 21 completed ANABEL Jay, [facility] 11/20/2021 13:27:49 COVID-19, mRNA, LNP-S, PF, 30 mcg/0.3 mL dose 11/04/19 21 completed ANABEL Jay [facility] 11/20/2021 13:27:49 Influenza, split virus, quadrivalent, PF 06/19/20 20 [facility] 14:24:15 Influenza, split virus, quadrivalent, PF 06/25/20 21 [facility]/2022 14:24:15 Tdap 06/25/20 21 completed ANABEL Leung [facility] 04/11/2022 14:24:15 Influenza, split virus, quadrivalent, PF 08/23/19 20 cancelled patient objection [facility] 08/23/2019 09:56:39 IPV 06/03/19 89 completed Not Available [facility] 02/14/2014 13:23:38 DTaP 06/03/19 89 completed Not Available [facility] 02/14/2014 13:23:38 DTaP 08/03/18 90 completed Not Available [facility] 02/14/2014 13:23:38 IPV 08/03/18 90 completed [facility] 02/14/2014 13:23:38 DTaP 10/01/18 90 completed [facility] 02/14/2014 13:23:39 Hib (HbOC) 07/03/19 90 completed Not Available [facility] 02/14/2014 13:23:39 MMR 07/03/19 90 completed Not Available [facility] 02/14/2014 13:23:39 IPV 10/01/18 91 completed Not Available [facility] 02/14/2014 13:23:39 DTaP 10/01/18 91 completed Not Available [facility] 02/14/2014 13:23:39 varicella 08/03/18 92 completed Not Available [facility] 02/14/2014 13:23:39 DTaP 06/03/19 93 completed Not Available [facility] 02/14/2014 13:23:39 IPV 06/03/19 93 completed Not Available [facility] 02/14/2014 13:23:39 Hep B, adolescent or pediatric 04/03/19 99 completed Not Available [facility] 02/14/2014 13:23:39 Td (adult), 2 Lf tetanus toxoid, preservative free, adsorbed 04/03/19 99 completed Not Available [facility] 02/14/2014 13:23:39 Hep B, adolescent or pediatric 08/03/19 00 completed Not Available [facility] 02/14/2014 13:23:39 Hep B, adolescent or pediatric 05/03/20 00 completed Not Available [facility] 02/14/2014 13:23:39 MMR 05/03/20 00 completed Not Available [facility] 02/14/2014 13:23:39 Influenza, split virus, trivalent, preservative 06/30/20 07 completed Not Available [facility] 02/14/2014 13:23:39 Tdap 12/10/19 11 completed Not Available [facility] 02/14/2014 13:23:39 Influenza, split virus, trivalent, preservative 07/14/20 11 completed Not Available [facility] 02/14/2014 13:23:39 influenza, seasonal, intradermal, preservative free 09/02/19 13 completed Not Available [facility] 02/14/2014 13:23:39 Past Encounters Encounter ID Performer Location Encounter Start Date Encounter Closed Date Diagnosis/Indication Diagnosis SNOMED-CT Code Diagnosis ICD10 Code Diagnosis IMO Codes Diagnosis Note [id number] autoEComm erce [address] [place] [address] 12/31/2006 00:00:00 [id number] autoEComm erce [address] [place] [address] 10/19/2007 00:00:00 [id number] autoEComm erce [id number] [facility] [address] [place] [address] 09/03/2006 00:00:00 [id number] [employer] [address] [facility],[address] [address] [place] [address] 02/28/2008 00:00:00 [id number] [employer] [address] [facility],[address] [address] [place] [address] 10/04/2008 00:00:00 [id number] [employer]ce [address] [facility],[address] [address] [place] [address] 05/28/2010 00:00:00 [id number] [employer]ce [address] [facility],[address] [address] [place] [address] 12/09/2010 00:00:00 [id number] [employer] [address] [facility],[address] [address] [place] [address] 07/14/2011 00:00:00 [id number] [employer] [address] [facility],[address] [place] [address] 07/17/2011 00:00:00 [id number] [employer] [address] [facility],[address] [address] [place] [address] 07/31/2011 00:00:00 [id number] [employer]ce [address] [facility] [address] [place] [address] 09/18/2011 00:00:00 [id number] [employer]ce [address] [facility],[address] [address] [place] [address] 04/22/2012 00:00:00 [id number] [employer]ce [address] [facility],[address] [place] [address] 08/30/2012 00:00:00 [id number] [employer]ce [address] [facility],[address] [place], [place] [address] 09/02/2012 00:00:00 [id number] [address] [address] [address] [place], [place] [address] 12/03/2012 00:00:00 [id number] auto[employer] erce [address] [facility] [address] [address] [place], [place] [address] 12/13/2012 00:00:00 [id number] [employer]ce [address] [facility],[address] [place], [place] [address] 02/07/2013 00:00:00 [id number] [employer] erce [address] [facility],[address] [place], [place] [address] 03/23/2013 00:00:00 [id number] [employer] [address] [facility] [address] [place], [place] [address] 08/25/2013 00:00:00 [id number] Kevyn Mcdonough MD Main Office 36[address] [facility] [address] [place], [place] [address] 03/14/2014 13:00:50 03/14/2014 13:43:29 Tuberculosis screening [id number] Camryn ramirez MD Main Office 36[address] [facility] [address] [place], [place] [address] 03/17/2014 09:55:15 03/17/2014 13:11:40 [id number] Camryn ramirez MD Main Office [address] [facility] [address] [place], [place] [address] 05/11/2014 13:48:32 05/11/2014 14:32:56 Adult health examination 001533389 pap is utd, doing a great job with weight loss, over 25lbs, is exercising . Asthma 656039436 stable on inhaler prn Allergy 483291261 beesting anaphylaxi s, hx, I reviewed with pt to carry epipen all the time, may repeat one time with second injector [id number] YONATHAN Bailon Main Office [address] [address] [place] [address] 01/31/2015 10:47:44 01/31/2015 11:19:21 Acute pharyngitis 002093415 Rapid strep negative, sore throat likely due to PND/ coughing, continue Flonase daily. Otitis media 49860632 Righ t OM, Tylenol or ibuprofen for fever/ pain, lots of fluids, amox as prescribed x 10 days even if feeling better. Cough 40031445 Hx of asthma, wheezing on exam, recommend she take her inhaler 4 times daily x 2 days then as needed, continue Flonase daily and robitussin w/ codeine for cough should also help sore throat. [id number] YONATHAN Bailon Main Office [address] [address] [place] [address] 02/14/2015 14:40:30 02/14/2015 15:15:08 Cough 70528376 Robitussin with codeine as needed, use your inhaler every 4 hours as needed, CXR today. Asthma 892779296 Short prednisone burst for wheezing/ continued cough symptoms [id number] Camryn ramirez MD Main Office [address] [address] [place] [address] 02/16/2015 13:49:41 02/16/2015 14:33:12 Cough 22170385 Pneumonia 933764657 see hx , prednisone helping but dark green sputum in ashtma flare treat as below, fluids rest call if not improving Acute asthma 167715978 [id number] Camryn ramirez MD Main Office [address] [address] [place] [address] 08/10/2015 13:27:13 08/10/2015 14:00:09 Cough 76382811 R05 viral, treat as below, rest and fluids Upper resp iratory infection 27598928 J06.9 Asthma 305452008 J45.90 9 flared a bit, add advaira nd use proair with a spacer. reutn with sob, fever worsening status [id number] YONATHAN Bailon Main Office [address] [address] [place] [address] 12/25/2015 15:55:02 12/25/2015 16:24:33 Fatigue 98571286 R53.83 Will check blood work today. Patient may need to have a sleep study done as well as she does snore and finds she wakes up at night. Stay well hydrated, well balanced meals, continue exercise daily. Amenorrhea 45399145 N91. 2 She is 1 week overdue for her menses, is on OCP and took it throughout instead of taking placebo due to vacation, will chesk test. [id number] YONATHAN Bailon Main Office [address] [facility] 207 [place] [address] 01/08/2016 09:31:03 01/08/2016 10:12:18 Adult health examination 882648056 Z00.01 Will update immunizati on status and screen based on risk factors. Regular dental care, periodic eye examinatio ns, and safety measures advised. Distracted driving discussed. Immunizati ons UTD, blood work normal about 2 weeks ago. Pap UTD, will request records. [id number] YONATHAN Bailon Main Office [address] [facility] 207 [place] [address] 01/08/2017 08:42:26 01/08/2017 09:36:21 Adult health examination 745999302 Z00.00 Will update immunizati on status and screen based on risk factors. Regular dental care, periodic eye examinatio ns, and safety measures advised. Distracted driving discussed. Pap UTD Snoring 71091540 R06.83 Will check sleep study as fatigue continues. Fatigue 53346388 R53.83 Will check blood work today. Patient may need to have a sleep study done as well as she does snore and finds she wakes up at night. Stay well hydrated, well balanced meals, continue exercise daily. [id number] Samaria Ramos PA-C Main Office 36[address] [facility] 207 [place] [address] 02/17/2017 11:31:42 02/17/2017 12:03:12 Acute pharyngitis 243227458 J02.9 Acute otitis media 04084 03 H65.112 STart Sudafed PE 120 mg BID for decongesti on as well as Abx prescribed . OTC pain medication s advised. Aleve works the best for her. Eustachian tube disorder 74767307 H69.93 Pt. has h/o allergies. Uses FLovent. Advised to also try antihistam jaclyn. [id number] Camryn ramirez MD Main Office [address] [address] [place] [address] 09/17/2017 12:37:18 09/17/2017 13:50:17 Acute pharyngitis 074203871 J02.9 neg quick strep Fever 630333463 R50.9 Influenza 5524650 J11.1 positive flu test, tx as below, fluids, rest return if any worsening [id number] YONATHAN Bailon Main Office [address] [place] [address] 01/28/2018 11:24:46 01/28/2018 12:12:35 Adult health examination 544559119 Z00.00 Will update immunizati on status and screen based on risk factors. Regular dental care, periodic eye examinatio ns, and safety measures advised. Distracted driving discussed. Pap UTD Epidermoid cyst 58184169 6 L72.0 [id number] Dar Ramos PA-C Main Office [address] [place] [address] 06/07/2018 10:28:57 06/07/2018 11:41:35 Acute sinusitis 08849418 J01.90 rec probiotics while on abx [id number] Kevyn Mcdonough MD Main Office [address] [place] [address] 02/25/2019 12:57:38 02/25/2019 13:53:16 Adult health examination 827387390 Z00.00 Will update immunizati on status and screen based on risk factors. Regular dental care, periodic eye examinatio ns, and safety measures advised. Distracted driving discussed. Pap UTD Degenerati on of lumbar intervertebral disc 00607650 M51.36 Greater tr ochanteric pain syndrome 2985866 M70.62 right sided. she will take ibuprofen TID with food x 5 days. ,heat or ice whichever feels best, stretches as tolerated. recommend she use a recumbent bike/ take a break from elliptical . [id number] Kevyn Mcdonough MD Main Office [address] [address] [place] [address] 05/19/2019 14:10:58 05/19/2019 15:00:51 Adjustment disorder with anxious mood 31988589 F43.22 Patient has not slept multiple nights [...] we will discuss further tx with SSRI. [id number] Kevyn Mcdonough MD Main Office [address] [address] [place] [address] 07/14/2019 11:13:36 07/14/2019 12:03:35 Recurrent major depressive episodes, moderate 808924594 F33.1 doing ok on lexapro but still scoring high on PHQ-9 and CUBA. she is not crying as easily so is getting some relief from med. recommend we increase the dose and have her push it up to dinner time. May be more tired due to also taking melatonin with med. f/u in 6 weeks. Adjustment disorder with anxious mood 41520533 F43.22 do not take this with melatonin, use only as needed, no driving or alcohol with med. [id number] Kevyn Mcdonough MD Main Office 3640 [facility] [address] [place] [address] 08/23/2019 09:30:03 08/23/2019 10:33:59 Influenza vaccination declined 782295329 Z28.21 Generalize d anxiety disorder 80235355 F41.1 Adjustment disorder with mixed emotional features 90939301 F43.23 Recurrent major depressive episodes, moderate 473892956 F33.1 Much better on 20mg lexapro. will continue, has a good support system. Will wait until PE in January for follow-up but will call if she needs anything prior. [id number] Kevyn Mcdonough MD Main Office 3640 [facility] [address] [place] [address] 06/19/2020 14:27:46 06/19/2020 15:44:59 Adult health examination 320476008 Z00.00 Will update immunizati on status and screen based on risk factors. Regular dental care, periodic eye examinatio ns, and safety measures advised. Distracted driving discussed. Pap appt upcoming Needs infl uenza immunization 519625945 Z23 Abnormal weight gain 161 070554 R63.5 weight gain, on lexapro, not exercising much except she is active on weekends.. will switch lexapro to setraline, recommend short HIIT workouts or 30 mins exercise 4 times weekly, dietary changes. Screening for cardiovascular system disease 007368417 Z13.6 Recurrent major depressive episodes, moderate 778837540 F33.1 no need to wean off lexapro, start sertraline instead of next dose of lexapro. f/u in 1month for rec heck. Anxiety 48736170 F41.9 [id number] Kevyn Mcdonough MD [facility] [address] [facility] [address] [place] [address] 07/18/2020 13:06:16 07/19/2020 08:58:40 Recurrent major depressive episodes, moderate 987330855 F33.1 will increase sertraline to 100mg daily. add lorazepam to use as needed until med kicks in fully. if any problems with med please call/ return. Generalize d anxiety disorder 01959836 F41.1 [id number] Kevyn Mcdonough MD [facility] [address] [facility] [address] [place] [address] 08/15/2020 07:27:16 08/16/2020 13:39:16 Generalized anxiety disorder 17399372 F41.1 CUBA score 06/23 today. Moderate r ecurrent major depression 74259027 F33.1 PHQ-9 score 15. Improving but slowly, Patient uis frustrated that [...] no change will add wellbutrin daily. Asthma 497342788 J45.90 9 Short prednisone burst for wheezing/ continued cough symptoms [id number] Kevyn Mcdonough MD [facility] [address] [place] [address] 08/30/2020 08:18:48 08/30/2020 14:57:30 Moderate recurrent major depression 94106511 F33.1 PHQ-9 score 20/27. Improving but slowly, [...] weeks for recheck. Generalize d anxiety disorder 00683762 F41.1 CUBA score 821 today. Improved. she feels anxiety is a lot better . [id number] Kevyn Mcdonough MD [facility] [address] [place] [address] 09/13/2020 06:21:52 09/13/2020 12:52:26 Moderate recurrent major depression 98105262 F33.1 PHQ-9 score 12. Improving but slowly, Patient is frustrated that she is not feeling better. Positive reinforcem ent provided, continue meds as directed, do not miss doses or stop meds abruptly. F/u in 2 months for recheck. Generalize d anxiety disorder 56211771 F41.1 CUBA score 4 today. Improved. she feels anxiety is a lot better . Insomnia 496136176 G47.0 0 using lorazepam as needed. [id number] Gonzalo Mercado MD [address] [place] [address] 09/15/2020 09:08:57 09/15/2020 12:14:54 Dysuria 32507249 R30.9 Will cover for uncomplica john cystitis. Push fluids and submit UA/culture if possible prior to starting abx. INB/worse will need further eval. [id number] Kevyn Mcdonough MD Main Office 36[address] [facility] [address] [place] [address] 04/30/2021 10:38:55 04/30/2021 11:21:37 Amenorrhea 40228647 N91.2 She took preg test at home [...] results of serum Generalize d anxiety disorder 77098487 F41.1 [id number] Kevyn Mcdonough MD Main Office 3640 [facility] 207 [facility] [place] [address] 06/25/2021 13:24:46 06/25/2021 14:14:58 Adult health examination 400330530 Z00.00 Will update immunizati on status and screen based on risk factors. Regular dental care, periodic eye examinatio ns, and safety measures advised. Distracted driving discussed. Needs infl uenza immunization 821251534 Z23 Recurrent major depressive episodes, moderate 544129771 F33.1 doing well off meds. Anxiety 15154302 F41.9 doing well off meds Contracept ion care management 759600348 Z30.9 she is currently on mini pill and does not feel it is working well for her. She was on previously and had decreased sex drive. Will try lower dose OCP. Take at same time daily, do not miss doses or double doses. Exposure t o sexually transmissible disorder 944056250 Z20.2 Administra tion of viral vaccine 06526402 Z23 Screening for malignant neoplasm of cervix 080109047 Z12.4 due for screening. [id number] Kevyn Mcdonough MD [facility] [address] [facility] [address] [place] [address] 11/20/2021 07:57:39 11/20/2021 14:52:26 Generalized anxiety disorder 98129000 F41.1 CUBA- 12/21. using THC products, she notes she wants to get a medical card. Does not want to re-start meds. Moderate r ecurrent major depression 34187836 F33.1 PHQ-9 . She is very nervous to re-start a med as most recent side effects were very bad. She feels like she is using so much energy at work trying to be normal and happy but her efforts are not cutting it. [id number] Gonzalo Mercado MD [facility] [address] [place] [address] 04/11/2022 13:06:35 04/11/2022 16:26:49 Fever 203102702 R50.9 This is unusual and has not recurred. Difficult to say if infectious illness is evolving of if possibly relate to onset of menses. Advised to call if recurs or if infectious symptoms develop. Headache 73194290 R51.9 Sounds migranous, no meningismu s. WiIl try tryptan and continue excedrin migraine PRN. Adequate hydration advised as well. Migraine 42004261 G43.90 9 Correlates to menses. See if sumatripta n works as abortive therapy. Advised to call for in office eval if worsening. Advised of common/ser ious potential side effects. [id number] Kevyn Mcdonough MD Main Office [address] [place] [address] 06/18/2022 13:25:00 06/18/2022 14:07:05 Exposure to sexually transmissible disorder 906236711 Z20.2 Had intercours e with a man once 3 months ago who called her to let her know that he was with someone who tested positive for chlamydia. She is symptom-fr ee. [id number] Kevyn Mcdonough MD Main Office [address] [place] [address] 02/12/2023 13:02:32 02/12/2023 13:53:26 Adult health examination 864747392 Z00.00 Will update immunizati on status and screen based on risk factors. Regular dental care, periodic eye examinatio ns, and safety measures advised. Distracted driving discussed. Exposure t o sexually transmissible disorder 959953897 Z20.2 Screening for malignant neoplasm of cervix 084945197 Z12.4 due for screening, she will schedule Hyperlipidemia 06430342 E78.5 Fatigue 01997479 R53.83 Unable to concentrate 60 317608 R41.840 will refer, unclear if her insurance will cover testing. [id number] Gonzalo Mercado MD [address] [place] [address] 02/24/2023 14:23:27 02/24/2023 16:23:27 Dysuria 88949251 R30.0 pt will give urine sample - check u/s & c&s, and will rx empiricall y c cipro cont push fluids, consider cranberry juice, also consider prn pyridium recommend probiotics while on abx Flank pain 196603959 R10 .9 check u/s to r/o kidney stones [id number] Kevyn Mcdonough MD [address] [place] [address] 04/29/2023 14:30:01 04/29/2023 15:30:38 Anxiety 89410901 F41.9 will take some time off work to reset- note provided, continue seeign therapy. Call/ return for any concerns or worsening. Moderate r ecurrent major depression 57416361 F33.1 She is very nervous to re-start a med as most recent side effects were very bad. She feels like she is using so much energy at work trying to be normal and happy but her efforts are not cutting it. [id number] Kevyn Mcdonough MD [place] [address] [place] [address] 12/30/2023 14:04:16 12/30/2023 15:13:21 Anxiety 69227783 F41.9 CUBA . Ready to start med, [...] recheck. Major depr ession in partial remission 32894561 F32.4 PHQ score 09/29. [id number] Kevyn Mcdonough MD [facility] [address] [facility] 207 [facility] [place] [address] 02/17/2024 14:52:20 02/17/2024 16:15:30 Moderate recurrent major depression 70251471 F33.1 She is very nervous to re-start a med as most recent side effects were very bad. She feels like she is using so much energy at work trying to be normal and happy but her efforts are not cutting it. PHQ score . Anxiety 51713788 F41.9 CUBA 20/.Gisela galvan increased on venlafaxin e, having side [...] F/u in 4 weeks for recheck. Fatigue 71081410 R53.83 Hyperlipidemia 66490724 E78.5 Vitamin D deficiency 347 56442 E55.9 [id number] Kevyn Mcdonough MD Main Office 3640 [facility] [address] [place] [address] 03/15/2024 15:20:09 03/15/2024 16:27:36 Adult health examination 441192079 Z00.00 Will update immunizati on status and screen based on risk factors. Regular dental care, periodic eye examinatio ns, and safety measures advised. Distracted driving discussed. Screening for malignant neoplasm of cervix 377795956 Z12.4 due for screening, she will schedule Hyperlipidemia 50303281 E78.5 Fatigue 80125045 R53.83 Migraine 09644327 G43.90 9 refill provided Asthma 271880919 J45.90 9 refill provided Moderate r ecurrent major depression 59753712 F33.1 bupropion is helping, she does feel she needs an increased ose but is not sleepign well. Will change to SR dosing 100mg BID, take in am and early afternoon to see if that helps. if not we can go back to 150mg XL daily. Insomnia 212471536 G47.0 0 lorazepam as needed for sleep until med adjustment . [id number] Kevyn Mcdonough MD Main Office 3640 [facility] 207 [facility] [place] [address] 04/21/2024 14:28:23 04/21/2024 15:15:04 Pain of left hip joint 5140733341 94876 M25.552 suspect referred pain but will XR both hip/ pelvis and lumbar spine Low back pain 735121974 M54.50 Suspect lumbar radiculopa thy/ sciatica. Meloxicam once daily with food x 14 days, heat orn ice whichever feels best, stretching as tolerated, cyclobenza kamini as needed at bedtime- no driving, work or alcohol with med. Xrays today. [id number] Kevyn Mcdonough MD Main Office 3640 [facility] 207 [facility] [place] [address] 08/15/2024 09:42:23 08/15/2024 10:22:35 Cyst of ovary 70084614 N83.209 -CT findings of bilateral adnexal cyst and possible ruptured cyst-endor ses lower abdominal/ pelvic discomfort around menstruati on>regular monthly cycles-was advised to f/u with nurse obgyn-pt's nurse obgyn office recently closed, will refer to [facility] nurse obgyn Hemorrhoids 62933578 K64 .9 reviewed hospital documentat ion-was evaluated for rectal bleeding x2 weeks-last episode of bright red blood per rectum was last -w as advised to f/u with GI for possible anoscopy or internal hemorrhoid ligation [id number] Kevyn Mcdonough MD [facility] [address] [facility] [address] [place] [address] 10/12/2024 12:53:56 10/12/2024 16:07:41 Generalized anxiety disorder 17783435 F41.1 CUBA- 16. using THC products, she notes she wants to get a medical card. Does not want to re-start SSRI at this time. Moderate r ecurrent major depression 60036599 F33.1 05/29, continue bupropion, will fill out FMLA paperwork for her. recommend she re-connect with her therapist to sort through her feelings Spasm 00657954 R25.2 having spasms in am, is hydrating, will try tizanidine at bedtime to see if it helps with sx. [id number] Kevyn Mcdonough MD Main Office [address] [place] [address] 12/14/2024 08:53:36 12/14/2024 09:33:13 Miscarriage 15943532 O03.9 65897 -was evaluated for heavy bleeding-d x with [...] for intermitte nt leave Transition of care 64640 72199 105 Z78.9 97235582 reviewed hospital documentat ion Generalize d anxiety disorder 17747651 F41.1 CUBA- . using THC products, she notes she wants to get a medical card. Does not want to re-start SSRI at this time. Moderate r ecurrent major depression 19590787 F33.1 [id number] Kevyn Mcdonough MD Main Office 3640 [facility] 207 [facility] [place] [address] 03/03/2025 14:51:08 03/03/2025 15:23:28 Adult health examination 982713615 Z00.00 UTD. Will update immunizati on status and screen based on risk factors. Regular dental care, periodic eye examinatio ns, and safety measures advised. Distracted driving discussed. Hyperlipidemia 52093222 E78.5 Asthma 800901057 J45.90 9 refill provided Moderate r ecurrent major depression 27137623 F33.1 bupropion is helping, c/w 300mg Insomnia 837319315 G47.0 0 -continues to wake 2x a night for 20min at a time-had no relief from lorazepam- may be related to undiagnose d ADHD-pt not interested in medication at this time, prefers to wait until she sees psych Poor concentration 62051 005 R41.840 239881 -symptoms of difficulty concentrat ing, completing tasks, and focusing-f inds her mind to be all over the place -wou ld benefit from a formal evaluation for ADHD-will refer to psych Moderate p ersistent asthma 805073028 J45.40 refills provided Health Concerns Section Related Observation LastModified by Organization Detai ls LastModified Time None Recorded Concern Status LastModified by Organization Details LastModified Time None Recorded Advance Directives Directive Y: Payers Insurance Date Sequence Insurance Name Policy Number Policy Cooper Covered Member ID Cooper Member ID Guarantor Name 12/08/2022 1 [place] [id number] Aysha Veliz [id number] Aysha Veliz 11/19/2021 1 [place] [facility] [id number] Aysha Pastor [id number] Aysha Figueroas 11/19/[address] [facility] PUBLIC PLANS [facility] [place] Aysha Pastor [id number] Aysha Veliz 02/20/2025 1 [facility] ([facility] [id number] Aysha Figueroas [id number] Aysha Figueroas 12/29/2023 1 [employer] (POS) [id number] 0003 Aysha Figueroas [id number] Aysha Gorman Veliz 04/21/2025 1 [employer] (POS) [id number] 0003 Aysha Veliz [id number] Aysha Veliz 08/10/[address] [facility] [id number] Arnulfo Wilson [id number] Aysha Veliz 02/23/2020 1 [facility] ([facility] [id number] Mihai Pastor [id number] Aysha Veliz Notes Date Note Type Note [...] raining. thought weather related.04/01 walked around in [place] and was having a lot more pain was wearing comfortable, supportive sneakers.Pain is constant and flares with certain activities and at the end of the day. has trouble even laying on that side, and has diff moving her body to the other side or her back. YONATHAN Bailon [address], [place], [address], [facility] [place] 04/21/2024 15:49:25 08/15/2024 text/html ROS as noted in the HPI Aysha is a 34yr old F who presents for a hospital f/u. [facility]: [facility]: 08/09/23 Aysha was evalauted at [facility] for bright red blood per rectum x2 weeks. Associated lower abdominal cramping. Denies of any known trauma, fever/chills. US revealed bilateral cyst, possible cyst rupture. No GI findings. CT scan was ordered and revealed finding suggestive of ruptured adnexal cysts w/ trace free pelvic fluid. TITA ROCHA [address], [place], [address], [facility] [place] 08/16/2024 22:49:38 10/12/2024 text/html Generic HPI [...] is happening. Last Thursday she went to [place] for cake tasting with her aunt, her [...] Her fiance is very supportive. Tish vilchis, [facility] [place] [place] 11/03/2024 16:16:13 12/14/2024 text/html ROS as noted [...] and has an appt tomorrow. TITA ROCHA [address] [facility] [address], [place], [address], [facility] [place] 12/14/2024 09:39:46 03/03/2025 text/html ROS as [...] referral to psychiatry for evaluation. TITA ROCHA [address] [facility] [address], [place], [address], [facility] [place] 03/03/2025 15:27:14 OBGyn Episode No OBEpisode recorded.
== END 2025-07-05 13:36 | disposition home or self-care (01) ==
LOC: HO.MRI 13:35
PROVIDERS: PCP Student in an Organized Health Care Education/Training Program; Visit Provider Obstetrics & Gynecology
DX: N83.299 Other ovarian cyst, unspecified side (principal)
CPT/HCPCS: 72197; A9585

== ENCOUNTER 2025-07-18 13:18 | Outpatient (AMB) | payer OTHER, SELFPAY ==
--- NOTE | 2025-07-18 13:19 | MHC.OFFVIS ---
Vital Signs 07/18/25 13:29 Height 5 ft 7 in Weight 160 lb BMI 25.1 BP 122/74 Intake Visit Reasons: MRI follow up, MRI 07/05 Refrigeration Brazer/Solderer Required: No Information Interpreted: non-clinical & clinical Accompanied by: Self / Same As Patient Allergies methocarbamol (From Robaxin) Adverse Reaction (Verified 06/08/25 16:11) Muscle cramps HPI Comments Details: Presenting for pelvic MRI follow-up regarding bilateral complex ovarian cyst seen on ultrasound done on 06/01/2025. Pelvic MRI showed the following: IMPRESSION: Probable hemorrhagic nabothian cysts, cervix. No ovarian mass or dominant cystic lesion. No gross uterine fibroid. 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 Sexual orientation: Straight/Heterosexual Gender identity: Female Female Reproductive History Menstrual Age of Menarche: 11 Review of Systems Const All systems reviewed & are unremarkable except as noted in HPI and below Reports as per HPI and Reports no additional complaints GI Reports no additional complaints Reports no additional complaints Assessment & Plan Assessment & Plan (1) Complex cyst of both ovaries: Code(s): N83.291 - Other ovarian cyst, right side; N83.292 - Other ovarian cyst, left side Category: Medical Plan: Discussed with the patient ultrasound findings showing the previously identified bilateral complex cyst have resolved. The patient was instructed to call if symptoms recur. All questions were answered the patient verbalized understanding. Coding Level of Care Code Est Pt Level 3 (75433) Diagnoses Complex cyst of both ovaries N83.291; N83.292
[2025-07-18 13:29] VITALS: BP 122/74; BMI 25.1
--- OUTSIDE RECORDS SUMMARY | 2025-07-18 17:19 | XMS_ITS | Patient Health Record ---
Author Organization [facility] Address [address] [place] [id number] Care Team Providers Care Planimeter Operator Name Role Phone CAMRYN CYR Primary Care Provider Unavailable Bhavana Louie Unavailable [phone] Allergies Allergen (clinical drug ingredient) Drug/Non Drug [...] W/U Status Risk Notes Problem Asthma (disorder) (871734631) Asthma, unspecified, unspecified status (493.90) Active confirmed Major Problem Dysmenorrhea (294499817) Dysmenorrhea (625.3) Active confirmed Diag Problem Light and infrequent menstruation (745293530) Scanty or infrequent menstruation (626.1) Active confirmed Major Problem Gynecological examination normal (154035144180658) Routine gynecological examination (V72.31) Active confirmed Major Plan Of Treatment Pending Test Test Name Order Date Urinalysis 06/11/2017 THIN PREP, HPV IF ASCUS (21-29YR) 2017 Insurance Providers Payer Name Payer Address Payer Phone Subscriber Number Group Number Insured Name Patient Relationship to Insured Coverage Start Date Coverage End Date [facility] [address] [place] [address] [id number] ROGER Spouse - patient is the spouse of the insured Medical (General) History Medical History History ICD Code Degenerative Spine Disease Scanty or infrequent menstruation 626.1 Dysmenorrhea, unspecified N94.6 Other asthma J45.998 Oligomenorrhea, unspecified N91.5 Surgical History Surgery Date(Month/Year) [place] Teeth Adenoidectomy Eear Tubes Hospitalization History Reason Date(Month/Year) See Surgical Hx
--- OUTSIDE RECORDS SUMMARY | 2025-07-18 17:19 | XMS_ITS | Data Portability ---
Author Organization [facility], Main Office Address [address] [place] [address] [place] [phone] Care Team Providers Care Cctv Technician Name Role Phone EUSEBIO HONG [employer] VITALY CUEVA Primary Care Provider Unavailabl e [...] patient's home Patient was located in the [facility]. Provider was located in the office. [...] panel, serum 2024 025 [email or web address] [facility], [address], Tony , [place], [address], 5 15:19:11 CMP, serum or plasma 2024 025 [email or web address] [facility], [address], [address], [place], [address], 5 15:19:11 CBC w/ auto diff 2024 025 S[facility] (Centralized Electronic Ordering - All Locations), Patient Can Go To The Location Of Their Choice, 5 11:58:55 TSH + free T4, serum 2024 025 [email or web address] [facility] (Centralized Electronic Ordering - All Locations), Patient Can Go To The Location Of Their Choice, [address] 5 15:19:11 Referral psychia trist referra l - pt is looking to get a formal evaluat ion for ADHD 2024 025 [email or web address] Vaibhav Sun MD, [address], [facility] [address], [place], [address], 5 10:21:46 gynecol ogist referra l - CT finding s of rupture d adnexal cysts with trace free pelvic fluid [email or web address] [place] [address] [facility], [address] [place] [address], [address], [place], [address], 5 09:38:40 gastroe nterolo gist referra l - was seen at [facility] for hemorrh oids. rec. referra l to GI 2024 025 [email or web address] Howard MD, [address] [facility], [place], [address], 5 10:41:56 Procedures None recorde d. Surgeries None recorde d. Imaging XR, hip + pelvis, bilater al - left hip pain worse since 04/01, diff walking , laying on it, sleepin g etc. radiate s into her groin [facility]23 [facility] [address] [place], [address], 4 09:31:01 XR, lumbar spine - low back pain into left hip and groin 2023 024 [facility], [address] [place], [address], 4 17:13:38 Medication Orders albuter ol sulfate HFA 90 mcg/act uation aerosol inhaler [address]/Pharmacy #[id number], [address] [place], [address], 5 15:19:11 Symbico rt 160 mcg-4.5 mcg/act uation HFA aerosol inhaler 2024 025 [email or web address] [facility]/Pharmacy #1157, [address] [place], [address], 5 08:26:11 Flonase Allergy Relief 50 mcg/act uation nasal spray,s uspensi on [address]/Pharmacy #1157, [address] [place], [address], 5 15:19:11 tizanid ine 4 mg tablet 2024 025 [facility]/Pharmacy #1157, [address] [place], [address], 5 15:00:06 meloxic am 15 mg tablet 2023 025 [facility]/Pharmacy #1157, [address] [place], [address], 5 09:57:56 cyclobe nzaprin e 10 mg tablet 2023 025 [facility]/Pharmacy #1157, [address] [place], [address], 5 09:57:38 Patient TargetsNo targets recorded. Patient Instructions Encounter Date Encounter Id Patient Instructions Last Modified By Organization Details Last Modified Time 04/21/2024 [id number] sciatica: exercises [email or web address] Not available 04/21/2024 15:06:06 sciatica: exercises [email or web address] Not available 04/21/2024 15:06:06 sciatica: care instructions [email or web address] Not available 04/21/2024 15:06:06 piriformis syndrome: exercises [email or web address] Not available 04/21/2024 15:06:06 piriformis syndrome: care instructions [email or web address] Not available 04/21/2024 15:06:06 To call or return for worsening or concerns [email or web address] Not available 04/21/2024 15:49:15 08/15/2024 [id number] hemorrhoids: care instructions Not available 08/15/2024 10:15:36 10/12/2024 [id number] To call or return for worsening or concerns [email or web address] Not available 10/12/2024 15:41:14 12/14/2024 [id number] At [facility] follow up visit, all current and discharge medications (OTC, herbal therapies, supplements) reviewed and reconciled with patient and or caregiver, including potential side effects, drug interactions, instructions, and the consequences of not taking medication. Reviewed potential barriers to medication adherence, such as side effects from medication or cost of medication. [email or web address] Not available 12/14/2024 08:56:24 Reason for Referral [employer] Referral for Hemorrhoids was seen at [facility] for hemorrhoids. rec. referral to GI Referring Physician: Family [facility], Encounter Date: 08/15/2024 [employer] Referral for Cy st of ovary CT [...] HCG quant 1562 mIU/m L Not Available [facility] [address] [place], [address], 12/05/2024 12:41:52 05/05/20 25 12/05/2024 HCG, QUANT ITATI VE note See Report [facility], [address], [place], [place] [address] Not Available [address], [address], 12/05/2024 12:41:52 12/02/19 25 12/01/2024 CBC WITH AUTO DIFFE RENTI AL WBC 11.7 K/mcL 4.8-10 .8 high Not Available [address], [address], 12/01/2024 17:46:12 12/02/19 25 12/01/2024 CBC WITH AUTO DIFFE RENTI AL RBC 4.70 M/mcL 3.80-4 .80 Not Available [address], [address], 12/01/2024 17:46:12 12/02/19 25 12/01/2024 CBC WITH AUTO DIFFE RENTI AL hemoglobin 15.0 g/dL 11.5-1 6.0 Not Available [address], [address], 12/01/2024 17:46:12 12/02/19 25 12/01/2024 CBC WITH AUTO DIFFE RENTI AL hematocrit 43.5 % 35.0-4 7.0 Not Available [address], [address], 12/01/2024 17:46:12 12/02/19 25 12/01/2024 CBC WITH AUTO DIFFE RENTI AL MCV 91.8 fL 79.0-9 8.0 Not Available [address], [address], 12/01/2024 17:46:12 12/02/19 25 12/01/2024 CBC WITH AUTO DIFFE RENTI AL MCH 31.6 pcg 27.0-3 2.0 Not Available [address], [address], 12/01/2024 17:46:12 12/02/1912/01/2024 CBC WITH AUTO DIFFE RENTI AL MCHC 34.5 g/dL 32.0-3 7.0 Not Available [address], [address], 12/01/2024 17:46:12 12/02/19 25 12/01/2024 CBC WITH AUTO DIFFE RENTI AL RDW 13.4 % 11.0-1 5.0 Not Available [address], [address], 12/01/2024 17:46:12 12/02/1912/01/2024 CBC WITH AUTO DIFFE RENTI AL platelets 488 K/mcL 130-40 0 high Not Available [address], [address], 12/01/2024 17:46:12 12/02/1912/01/2024 CBC WITH AUTO DIFFE RENTI AL MPV 8.8 fL 7.0-11 .0 Not Available [address], [address], 12/01/2024 17:46:12 12/02/1912/01/2024 CBC WITH AUTO DIFFE RENTI AL NRBC 0.0 % <1.0 Not Available [address], [address], 12/01/2024 17:46:12 12/02/19 25 12/01/2024 CBC WITH AUTO DIFFE RENTI AL NRBC absolute 0.00 K/mcL <0.10 Not Available [address], [address], 12/01/2024 17:46:12 12/02/1912/01/2024 CBC WITH AUTO DIFFE RENTI AL neutrophils relative 64.2 % Not Available [address], [address], 12/01/2024 17:46:12 12/02/19 25 12/01/2024 CBC WITH AUTO DIFFE RENTI AL lymphocytes relative 19.7 % Not Available [address], [address], 12/01/2024 17:46:12 12/02/19 25 12/01/2024 CBC WITH AUTO DIFFE RENTI AL monocytes relative 9.1 % Not Available [address], [address], 12/01/2024 17:46:12 12/02/19 25 12/01/2024 CBC WITH AUTO DIFFE RENTI AL eosinophils relative 6.1 % Not Available [address], [address], 12/01/2024 17:46:12 12/02/19 25 12/01/2024 CBC WITH AUTO DIFFE RENTI AL basophils relative 0.6 % Not Available [address], [address], 12/01/2024 17:46:12 12/02/19 25 12/01/2024 CBC WITH AUTO DIFFE RENTI AL immature granulocytes relative 0.3 % Not Available [address], [address], 12/01/2024 17:46:12 12/02/19 25 12/01/2024 CBC WITH AUTO DIFFE RENTI AL neutrophils absolute 7.52 K/mcL 1.50-7 .00 high Not Available [address], [address], 12/01/2024 17:46:12 12/02/19 25 12/01/2024 CBC WITH AUTO DIFFE RENTI AL lymphocytes absolute 2.31 K/mcL 1.00-5 .00 Not Available [address], [address], 12/01/2024 17:46:12 12/02/19 25 12/01/2024 CBC WITH AUTO DIFFE RENTI AL monocytes absolute 1.07 K/mcL 0.20-1 .00 high Not Available [address], [address], 12/01/2024 17:46:12 12/02/19 25 12/01/2024 CBC WITH AUTO DIFFE RENTI AL eosinophils absolute 0.71 K/mcL 0.00-0 .50 high Not Available [address], [address], 12/01/2024 17:46:12 12/02/19 25 12/01/2024 CBC WITH AUTO DIFFE RENTI AL basophils absolute 0.07 K/mcL 0.00-0 .20 Not Available [address], [address], 12/01/2024 17:46:12 12/02/19 25 12/01/2024 CBC WITH AUTO DIFFE RENTI AL immature granulocytes absolute 0.04 K/mcL 0.00-0 .03 high Not Available [address], [address], 12/01/2024 17:46:12 12/02/1912/01/2024 CBC WITH AUTO DIFFE RENTI AL note See Report high [facility], [address], [place], [place] [address] Not Available [address], [address], 12/01/2024 17:46:12 12/02/1912/01/2024 HEPAT ITIS B SURFA CE ANTIG EN WITH REFLE X TO CONFI RMATI ON hepatitis B surface Ag Negati ve negati ve Not Available [address], [address], 12/01/2024 18:39:01 12/02/19 25 12/01/2024 HEPAT ITIS B SURFA CE ANTIG EN WITH REFLE X TO CONFI RMATI ON note See Report [facility], [address], [place], [facility] [place] [address] Not Available [address], [address], 12/01/2024 18:39:01 12/02/19 25 12/01/2024 RUBEL LA ANTIB ALESHIA IGG rubella IgG quant 44.8 I_uni t/mL >=10.0 Not Available [address], [address], 12/01/2024 18:39:09 12/02/19 25 12/01/2024 RUBEL LA ANTIB ALESHIA IGG rubella IgG antibody interp Positi ve positi ve Not Available [address], [address], 12/01/2024 18:39:09 12/02/19 25 12/01/2024 RUBEL LA ANTIB ALESHIA IGG note See Report [facility], [address], [place], [facility] [place] [address] Not Available [address], [address], 12/01/2024 18:39:09 12/02/19 25 12/01/2024 HIV 1, 2 ANTIB ALESHIA, P24 ANTIG EN WITH REFLE X TO DIFFE RENTI ATION HIV combo Ab/Ag Negati ve negati ve Not Available [address], [address], 12/01/2024 19:10:04 12/02/19 25 12/01/2024 HIV 1, 2 ANTIB ALESHIA, P24 ANTIG EN WITH REFLE X TO DIFFE RENTI ATION note See Report [facility], [address], [place], [facility] [place] [address] Not Available [address], [address], 12/01/2024 19:10:04 12/02/19 25 12/01/2024 HEPAT ITIS C ANTIB ALESHIA hepatitis C antibody Negati ve negati ve Not Available [address], [address], 12/01/2024 19:10:12 12/02/19 25 12/01/2024 HEPAT ITIS C ANTIB ALESHIA note See Report [facility], [address], [place], [facility] [place] [address] Not Available [address], [address], 12/01/2024 19:10:12 12/02/19 25 12/01/2024 DRUG ABUSE SCREE N EXPAN DED WITH REFLE X CONFI RMATI ON, URINE amphetamine screen, ur Negati ve negati ve Certa in OTC medic ation s conta ining ephed rine, pheny lephr ine, pseud oephe drine and pheny lprop anola mine can cause false posit margoth resul ts. Not Available [address], [address], 12/01/2024 19:32:03 12/02/19 25 12/01/2024 DRUG ABUSE SCREE N EXPAN DED WITH REFLE X CONFI RMATI ON, URINE barbiturate screen, ur Negati ve negati ve Not Available [address], [address], 12/01/2024 19:32:03 12/02/19 25 12/01/2024 DRUG ABUSE SCREE N EXPAN DED WITH REFLE X CONFI RMATI ON, URINE benzodiazepi ne screen, ur Negati ve negati ve Not Available [address], [address], 12/01/2024 19:32:03 12/02/19 25 12/01/2024 DRUG ABUSE SCREE N EXPAN DED WITH REFLE X CONFI RMATI ON, URINE cocaine screen, ur Negati ve negati ve Not Available [address], [address], 12/01/2024 19:32:03 12/02/19 25 12/01/2024 DRUG ABUSE SCREE N EXPAN DED WITH REFLE X CONFI RMATI ON, URINE opiate screen, ur Negati ve negati ve Not Available [address], [address], 12/01/2024 19:32:03 12/02/19 25 12/01/2024 DRUG ABUSE SCREE N EXPAN DED WITH REFLE X CONFI RMATI ON, URINE cannabinoid (THC) screen, ur Positi ve negati ve abnormal Speci mens from patie nts takin g panto prazo le sodiu m (Prot lizette) have been shown to produ ce false posit margoth resul ts. Not Available [address], [address], 12/01/2024 19:32:03 12/02/19 25 12/01/2024 DRUG ABUSE SCREE N EXPAN DED WITH REFLE X CONFI RMATI ON, URINE fentanyl, ur Negati ve negati ve Not Available [address], [address], 12/01/2024 19:32:03 12/02/19 25 12/01/2024 DRUG ABUSE SCREE N EXPAN DED WITH REFLE X CONFI RMATI ON, URINE oxycodone screen, ur Negati ve negati ve Not Available [address], [address], 12/01/2024 19:32:03 12/02/19 25 12/01/2024 DRUG ABUSE SCREE N EXPAN DED WITH REFLE X CONFI RMATI ON, URINE note See Report [facility], [address], [place], [facility] [place] [address] Not Available [address], [address], 12/01/2024 19:32:03 12/02/19 25 12/01/2024 TREPO NEMA PALLI DUM ANTIB ALESHIA WITH REFLE X TO RPR AND PARTI CURT AGGLU TINAT ION T. pallidum antibodies Negati ve negati ve Not Available [address], [address], 12/01/2024 20:38:13 12/02/19 25 12/01/2024 TREPO NEMA PALLI DUM ANTIB ALESHIA WITH REFLE X TO RPR AND PARTI CURT AGGLU TINAT ION note See Report [facility], [address], [place], [facility] [place] [address] Not Available [address], [address], 12/01/2024 20:38:13 12/02/19 25 12/01/2024 TYPE AND SCREE N ABO group B Not Available [address], [address], 12/02/2024 09:53:15 12/02/19 25 12/01/2024 TYPE AND SCREE N Rh type Positi ve Not Available [address], [address], 12/02/2024 09:53:15 12/02/19 25 12/01/2024 TYPE AND SCREE N antibody screen Negati ve Not Available [address], [address], 12/02/2024 09:53:15 12/02/19 25 12/01/2024 TYPE AND SCREE N note See Report [facility], [address], [place], [facility] [place] [address] Not Available [address], [address], 12/02/2024 09:53:15 12/02/19 25 12/01/2024 VARIC REGLA ZOSTE R ANTIB ALESHIA IGG varicella IgG Positi ve positi ve Not Available [address], [address], 12/02/2024 11:01:34 12/02/19 25 12/01/2024 VARIC REGLA ZOSTE R ANTIB ALESHIA IGG varicella zoster IgG 12.90 S/co >=1.00 Not Available [address], [address], 12/02/2024 11:01:34 12/02/19 25 12/01/2024 VARIC REGLA ZOSTE R ANTIB ALESHIA IGG note See Report [facility], [address], [facility] [place] [address] Not Available [address], [address], 12/02/2024 11:01:34 12/02/19 25 12/01/2024 CULTU RE URINE .note See Note Origi nal Order ing Provi rafa: ARTHUR Marcial [facility] - [address], [facility] [place] [address] Not Available [address], [address], 12/02/2024 14:43:33 12/02/19 25 12/01/2024 CULTU RE URINE culture, urine <10,00 0 CFU/mL gram positi ve cocci, insign ifican t count, no furthe r workup Not Available [address], [address], 12/02/2024 14:43:33 04/21/20 24 04/21/2024 XR, lumba [...] change limite d to L5-S1. . WSN: [id number] Orderi ng Physic lola: Arturo Bunch Dictat ed By: Ryan Knowles MD Dictat ed Date/T maria guadalupe: 5:10 pm Review ed By: Ryan Knowles MD Signed By: Ryan Knowles MD Signed Date/T maria guadalupe: 5:10 pm Transc ribed By: MONAE Transc ribed Date/T maria guadalupe: 5:09 pm Patien t Class: Outpat ient [facility] (Outpt Imaging) [address] [place], [address], 04/22/2024 11:04:10 04/22/20 24 04/21/2024 xr hip bilat 3-4 views w/AP pelvi s XR Hip Bilat 3-4 Views W/AP Pelvis Reason : pain COMPAR DANA: None. FINDIN GS: There is no fractu re or disloc ation. Normal hips and sacroi liac joints . IMPRES ELISA: Normal . I have person ally review ed the images and I agree with this report . WSN: [id number] Orderi ng Physic lola: Arturo Bunch Dictat ed By: Deann Ganonn MD Dictrajni ed Date/T maria guadalupe: 2:04 pm Review ed By: Nata Anderson MD Signed By: Nata Anderson MD Signed Date/T maria guadalupe: 2:09 pm Transc ribed By: MONAE Transc ribed Date/T maria guadalupe: 1:45 pm Patien t Class: Outpat ient [facility] (Outpt Imaging) [address], [place], [address], 04/22/2024 15:45:52 08/09/19 25 08/09/2024 CT, abdom en + pelvi s, w/ contr ast No observ ation record ed. [email or web address] [facility] (Medical Records) [address] [place], [address], 08/10/2024 10:00:15 06/01/20 25 06/01/2025 US, trans vagin al No observ ation record ed. [email or web address] [facility] (Medical Records) [address] [place], [address], 06/13/2025 11:39:30 07/05/20 25 07/05/2025 MRI, pelvi s, w/ contr ast No observ ation record ed. [email or web address] [facility] (Medical Records) [address] [place], [address], 07/06/2025 08:54:17 Result Notes Documentation Provider Name and Address [...] 3. Degenerative change limited to L5-S1.. WSN: [id number] Ordering Physician: Donny Bunch Dictated By: Ryan Knowles MD Dictated Date/Time: 04/21/24 5:10 pm Reviewed By: Ryan Knowles MD Signed By: Ryan Knowles MD Signed Date/Time: 04/21/24 5:10 pm Transcribed By: MONAE Transcribed Date/Time: 04/21/24 5:09 pm Patient Class: Outpatient Donny Steward, [facility] [address] [address], [place], [address], [facility] 04/22/2024 10:50:33 Problems Name Problem SNOMED Code Status Onset Date Resolution Date Notes Provider Name and Address Organization Details Recorded Time Acute pharyngi tis 509753715 Completed 07/14/2019 Galina Terry MA [facility] 9 11:14:58 Allergic rhinitis 07773748 Active Donny Steward [address] [address], [place], [address], [facility] 6 09:45:34 Asthma 152955255 Active Donny Steward [address] [address], [place], [address], [facility] 6 09:45:34 Acute asthma 020868128 Active Donny Steward [address] [facility] [place], [place], [address], [facility] 6 09:45:34 Dysmenor rebeca 202978734 Active Donny Steward, [address] [facility] [place], [place], [address], [facility] 6 09:45:34 Malaise and fatigue [id number] Marvin Steward [address] [facility] [place], [place], [address], [facility] 6 09:45:34 Low back pain [id number] Marvin Steward [address], [place], [address], [facility] 6 09:45:34 Sprains and strains of joints and adjacent muscles Active Donny Steward, [facility] [address] [facility] [address], [place], [address], [facility] 6 09:45:34 Patient status finding [id number] Completed 07/14/2019 ANABEL Gottlieb, [facility] 9 11:15:13 Otitis media 74071331 Completed 05/15/2020 ANA[place]EL Haque, [facility] 0 12:55:32 Pain in thoracic spine 872452461 Active Donny Steward [address], [place], [address], [facility] 6 09:45:34 Pneumoni a 368807320 Active Donny Steward [address], [place], [address], [facility] 6 09:45:34 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 Donny Steward [address], [place], [address], [facility] 6 09:45:34 Tinnitus 78802436 Active Donny Steward [address], [place], [address], [facility] 6 09:45:34 Allergy Active Donny Steward [address], [place], [address], [facility] 6 09:45:34 Cough 93181823 Completed 07/14/2019 ANABEL Gottlieb, [facility] 9 11:15:04 Upper respirat ory infectio n 65420761 Completed 07/14/2019 Galina Terry MA null, [facility] 9 11:15:26 Fatigue 96808995 Active Donny Steward, [facility] [address] [facility] [address], [place], [address], [facility] 6 09:45:34 Amenorrh ea 05365292 Active Donny Steward, [facility] [address] [place] [address] [address], [facility] [place], [address], [facility] 6 09:45:34 Degenera tion of lumbar interver tebral disc 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 Active Donny Steward, [address] [address] [facility] [address], [facility] [place], [address], [facility] 6 09:45:34 Snoring 15008226 Active Donny Steward, [facility] [address] [place] [address] [address], [facility] [place], [address], [facility] 6 09:45:34 Administ ration of bacteria l and viral vaccine Completed 201002/14/2014 RECORDED 12/10/19 11 9:51AM BY CAMRYN Bello MD, OFFICE VISIT Donny Steward [address], [facility] [place], [address], [facility] 6 09:45:34 Administ ration of bacteria l and viral vaccine Completed 201003/09/2014 RECORDED 12/10/19 11 9:51AM BY CAMRYN Bello MD, OFFICE VISIT Donny Steward, [facility] [address] [place] [address] [address], [place], [address], [facility] 6 09:45:34 Administ ration of bacteria l and viral vaccine Completed 201003/10/2014 RECORDED 12/10/19 11 9:51AM BY CAMRYN Bello MD, OFFICE VISIT Donny Steward, [facility] [address] [facility] [address], [place], [address], [facility] 6 09:45:34 Dysfunct ional uterine bleeding Completed 201202/14/2014 RECORDED 08/30/19 13 2:03PM BY GILLES LAZARO MA, LUISA ON/ADDEN DUM Donny Steward, [facility] [address] [facility] [address], [place], [address], [facility] 6 09:45:34 Acute sinusiti s 62507656 Completed 201202/14/2014 RECORDED 08/30/19 13 2:03PM BY GILLES LAZARO MA, ANNOTATI ON/ADDEN DUM Donny Steward, [facility] [address] [facility] [address], [place], [address], [facility] 6 09:45:34 Acute upper respirat ory infectio n 44985678 Completed 201202/14/2014 IMPRESSI ON: LUNGS WITH WHEEZES AND CRACKLES THROUGHO UT. WILL START ON ABX AND PREDNISO NE. CXR TODAY. F/U NEXT WEEK FOR RE-EVAL, SOONER PRN IF SXS WORSEN IN THE INTERIM. 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 WITH FEVER MOST LIKELY THE LATTER; RECORDED 08/30/19 13 2:03PM BY GILLES LAZARO MA, LUISA ON/ADDEN DUM Galina Terry MA null, [facility] 9 11:15:04 Otalgia 53238872 Completed 201202/14/2014 IMPRESSI ON: FROM EFFUSION FORM ALLERGIE S TX BELOW; RECORDED 08/30/19 13 2:02PM BY GILLES LAZARO MA, LUISA ON/ADDEN DUM Donny Steward, [facility] [address], [place], [address], [facility] 6 09:45:34 Well child 107097463 Completed 201202/14/2014 RECORDED 08/30/19 13 2:03PM BY GILLES LAZARO MA, LUISA ON/ADDEN DUM Donny Steward, [facility] [address] [facility] [address], [place], [address], [facility] 6 09:45:34 Dysfunct ional uterine bleeding Completed 201203/09/2014 RECORDED 08/30/19 13 2:03PM BY GILLES LAZARO MA, ANNOTATI ON/ADDEN DUM Donny Steward, [facility] [address], [place], [address], [facility] 6 09:45:34 Acute sinusiti s 38600488 Completed 201203/09/2014 RECORDED 08/30/19 13 2:03PM BY GILLES LAZARO MA, ANNOTATI ON/ADDRANJITH Steward, [facility] [address] [facility] [address], [place], [address], [facility] 6 09:45:34 Acute upper respirat ory infectio n 54827624 Completed 201203/09/2014 IMPRESSI ON: LUNGS WITH WHEEZES AND CRACKLES THROUGHO UT. WILL START ON ABX AND PREDNISO NE. CXR TODAY. F/U NEXT WEEK FOR RE-EVAL, SOONER PRN IF SXS WORSEN IN THE INTERIM. 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 WITH FEVER MOST LIKELY THE LATTER; RECORDED 08/30/19 13 2:03PM BY GILLES LAZARO MA, ANNOTATI ON/SHALONDA Terry MA [facility], [facility] 9 11:15:04 Otalgia [id number] Completed 201203/09/2014 IMPRESSI ON: FROM EFFUSION FORM ALLERGIE S TX BELOW; RECORDED 08/30/19 13 2:02PM BY GILLES LAZARO MA, ANNOTATI ON/SHALONDA Steward, [facility] [address] [address], [place], [address], [facility] 6 09:45:34 Well child [id number] Completed 201203/09/2014 RECORDED 08/30/19 13 2:03PM BY GILLES LAZARO MA, LUISA ON/ADDRANJITH Steward, [facility] [address] [facility] [address], [place], [address], [facility] 6 09:45:34 Dysfunct ional uterine bleeding Completed 201203/10/2014 RECORDED 08/30/19 13 2:03PM BY GILLES LAZARO MA, LUISA ON/SHALONDA Steward, [facility] [address] [facility] [address], [place], [address], [facility] 6 09:45:34 Acute sinusiti s 17348432 Completed 201203/10/2014 RECORDED 08/30/19 13 2:03PM BY GILLES LAZARO MA, LUISA ON/SHALONDA Steward, [facility] [address] [facility] [address], [place], [address], [facility] 6 09:45:34 Acute upper respirat ory infectio n [id number] Completed 201203/10/2014 IMPRESSI ON: LUNGS WITH WHEEZES AND CRACKLES THROUGHO UT. WILL START ON ABX AND PREDNISO NE. CXR TODAY. F/U NEXT WEEK FOR RE-EVAL, SOONER PRN IF SXS WORSEN IN THE INTERIM. 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 WITH FEVER MOST LIKELY THE LATTER; RECORDED 08/30/19 13 2:03PM BY GILLES LAZARO MA, ANNOTATI ON/[facility]BEL [facility] 9 11:15:04 Otalgia [id number] Completed 201203/10/2014 IMPRESSI ON: FROM EFFUSION FORM ALLERGIE S TX BELOW; RECORDED 08/30/19 13 2:02PM BY GILLES LAZARO MA, ANNOTATI ON/SHALONDA Steward, [facility] [address] [address], [place], [address], [facility] 6 09:45:34 Well child [id number] Completed 201203/10/2014 RECORDED 08/30/19 13 2:03PM BY GILLES LAZARO MA, ANNOTATI ON/SHALONDA Steward [facility] [address] [address], [place], [address], [facility] 6 09:45:34 Acute pharyngi tis 913713928 Completed 201202/14/2014 IMPRESSI ON: SOUNDS VIRAL, AND SECONDAR Y TO POST NASAL DRIP. WILL R/O STREP. OTHERWIS E SUPPORTI VE TX ADVISED. CALL INB/WORS E.; RECORDED 09/02/19 13 3:50PM BY SONJA GRESHAM MA, LUISA ON/SHALONDA Terry MA null, [facility] 9 11:14:58 Influenz a vaccine needed [id number] 06 Completed 201202/14/2014 RECORDED 09/02/19 13 3:59PM BY SONJA GRESHAM MA, OFFICE VISIT YONATHAN Bailon [address], [place], [address], [facility] 6 09:45:34 Acute laryngit is 5051567 Completed 201202/14/2014 IMPRESSI ON: SOOTHING LIQUIDS, WARM SALT WATER GARGLING ADVISED ALONG WITH VOICE REST.; RECORDED 09/02/19 13 3:50PM BY SONJA GRESHAM MA, ANNOTATI ON/YONATHAN Borja [address] [place] [address], [facility] [place], [address], [facility] 6 09:45:34 Otitis media 43132602 Completed 201202/14/2014 IMPRESSI ON: CONTINU ABX, CALL IF NO IMPROVEM ENT OVER NEXT 7-10 DAYS.; RECORDED 09/02/19 13 3:50PM BY SONJA GRESHAM MA, ANNOTATI ON/SHALONDA pickett MA [facility] 0 12:55:32 Influenz a vaccine needed [id number] 06 Completed 201203/09/2014 RECORDED 09/02/19 13 3:59PM BY SONJA GRESHAM MA, OFFICE VISIT YONATHAN Bailon [address] [place] [address], [place], [address], [facility] 6 09:45:34 Acute laryngit is 4453468 Completed 201203/09/2014 IMPRESSI ON: SOOTHING LIQUIDS, WARM SALT WATER GARGLING ADVISED ALONG WITH VOICE REST.; RECORDED 09/02/19 13 3:50PM BY SONJA GRESHAM MA, ANNOTATI ON/YONATHAN Borja [address] [place] [address], [place], [address], [facility] 6 09:45:34 Influenz a vaccine needed [id number] 06 Completed 201203/10/2014 RECORDED 09/02/19 13 3:59PM BY SONJA GRESHAM MA, OFFICE VISIT Donny Steward, [facility] [address] [address], [place], [address], [facility] 6 09:45:34 Acute laryngit is 1849525 Completed 201203/10/2014 IMPRESSI ON: SOOTHING LIQUIDS, WARM SALT WATER GARGLING ADVISED ALONG WITH VOICE REST.; RECORDED 09/02/19 13 3:50PM BY SONJA GRESHAM MA, LUISA ON/SHALONDA Steward, [facility] [address] [address], [place], [address], [facility] 6 09:45:34 Renewal of prescrip tion Completed 201202/14/2014 RECORDED 12/04/19 13 3:16PM BY SONJA GRESHAM MA, ANNOTATI ON/SHALONDA Steward, [facility] [address] [address], [place], [address], [facility] 6 09:45:34 Adult health examinat ion Completed 201202/14/2014 IMPRESSI ON: PT NEEDS PAP, I MARTINEZ ET UP WITH QUALITY ASSURANCE ASSOCIATE, EXERCISI ES, NOT SEXUALLY ACITVE, NO HIGH RISK ACTIVITY ; RECORDED 12/04/19 13 3:16PM BY SONJA GRESHAM MA, ANNOTATI ON/SHALONDA Steward, [facility] [address] [address], [place], [address], [facility] 6 09:45:34 Lymphade nopathy 15406341 Completed 201202/14/2014 RESOLVED DATE: 12/04/19 13; IMPRESSI ON: RESOLVED ; RECORDED 12/04/19 13 3:43PM BY TITA CONCEPCION, RADHAATI ON/ADDEN BAYRON Steward, [facility] [address] [facility] [address], [place], [address], [facility] 6 09:45:34 Renewal of prescrip tion Completed 201203/09/2014 RECORDED 12/04/19 13 3:16PM BY SONJA GRESHAM MA, LUISA ON/ADDEN BAYRON Steward, [facility] [address] [facility] [address], [place], [address], [facility] 6 09:45:34 Adult health examinat ion Completed 201203/09/2014 IMPRESSI ON: PT NEEDS PAP, I MARTINEZ ET UP WITH QUALITY ASSURANCE ASSOCIATE, EXERCISI ES, NOT SEXUALLY ACITVE, NO HIGH RISK ACTIVITY ; RECORDED 12/04/19 13 3:16PM BY SONJA GRESHAM MA, LUISA ON/SHALONDA Steward, [facility] [address], [place], [address], [facility] 6 09:45:34 Lymphade nopathy 13363680 Completed 201203/09/2014 RESOLVED DATE: 12/04/19 13; IMPRESSI ON: RESOLVED ; RECORDED 12/04/19 13 3:43PM BY TITA CONCEPCION, LUISA ON/SHALONDA Steward, [facility] [address], [place], [address], [facility] 6 09:45:34 Renewal of prescrip tion Completed 201203/10/2014 RECORDED 12/04/19 13 3:16PM BY SONJA GRESHAM MA, LUISA ON/SHALONDA Steward, [facility] [address], [place], [address], [facility] 6 09:45:34 Adult health examinat ion Completed 201203/10/2014 IMPRESSI ON: PT NEEDS PAP, I MARTINEZ ET UP WITH QUALITY ASSURANCE ASSOCIATE, EXERCISI ES, NOT SEXUALLY ACITVE, NO HIGH RISK ACTIVITY ; RECORDED 12/04/19 3:16PM BY SONJA GRESHAM MA, LUISA ON/[facility] BAYRON Steward, [facility] [address] [facility] [address], [place], [address], [facility] 6 09:45:34 Lymphade nopathy [id number] Completed 201203/10/2014 RESOLVED DATE: 12/04/19; IMPRESSI ON: RESOLVED ; RECORDED 12/04/19 3:43PM BY TITA CONCEPCION, LUISA ON/SHALONDA Steward, [facility] [address] [facility] [address], [place], [address], [facility] 6 09:45:34 Lyme disease [id number] Completed 201202/14/2014 IMPRESSI ON: EXAM TODAY DOES NO LOOK LIKE EM BUT BASED ON DESCRIPT ION YEST IT COULD HAVE BEEN. SINCE SHE ALSO HAS BEEN HAVING FLU LIKE SXS WILL TREAT FOR POSSIBLE EARLY LYME; RECORDED 12/14/19 3:05PM BY SONJA GRESHAM MA, LUISA ON/[facility] Donny Steward, [address], [place], [address], [facility] 6 09:45:34 Lyme disease 87286941 Completed 201203/09/2014 IMPRESSI ON: EXAM TODAY DOES NO LOOK LIKE EM BUT BASED ON DESCRIPT ION YEST IT COULD HAVE BEEN. SINCE SHE ALSO HAS BEEN HAVING FLU LIKE SXS WILL TREAT FOR POSSIBLE EARLY LYME; RECORDED 12/14/19 3:05PM BY SONJA GRESHAM MA, LUISA ON/[facility]ward, [facility] [address] [facility] [address], [place], [address], [facility] 6 09:45:34 Lyme disease 76305305 Completed 201203/10/2014 IMPRESSI ON: EXAM TODAY DOES NO LOOK LIKE EM BUT BASED ON DESCRIPT ION YEST IT COULD HAVE BEEN. SINCE SHE ALSO HAS BEEN HAVING FLU LIKE SXS WILL TREAT FOR POSSIBLE EARLY LYME; RECORDED 12/14/19 13 3:05PM BY SONJA GRESHAM MA, LUISA ON/ADDEN BAYRON Steward, [facility] [address], [place], [address], [facility] 6 09:45:34 Patient status finding [id number] Completed 201202/14/2014 RECORDED 03/23/20 13 8:59AM BY GILLES LAZARO MA, LUISA ON/ADDEN BAYRON Terry MA null, [facility] 9 11:15:13 Nausea [id number] Completed 201202/14/2014 IMPRESSI ON: WILL DO SERUM HCG TO CONFIRM NO PREGNANC Y.; RECORDED 03/23/20 13 8:59AM BY GILLES LAZARO MA, LUISA ON/ADDEN BAYRON Steward, [facility] [address], [place], [address], [facility] 6 09:45:34 Patient status finding [id number] Completed 201203/09/2014 RECORDED 03/23/20 13 8:59AM BY GILLES LAZARO MA, LUISA ON/SHALONDA Terry MA null, [facility] 9 11:15:13 Nausea [id number] Completed 201203/09/2014 IMPRESSI ON: WILL DO SERUM HCG TO CONFIRM NO PREGNANC Y.; RECORDED 03/23/20 13 8:59AM BY GILLES LAZARO MA, LUISA ON/ADDEN BAYRON Steward, [facility] [address], [place], [address], [facility] 6 09:45:34 Patient status finding [id number] Completed 201203/10/2014 RECORDED 03/23/20 13 8:59AM BY GILLES LAZARO MA, ANNOTATI ON/ADDEN DUM [place] Terry MA null, [facility] 9 11:15:13 Nausea [id number] Completed 201203/10/2014 IMPRESSI ON: WILL DO SERUM HCG TO CONFIRM NO PREGNANC Y.; RECORDED 03/23/20 13 8:59AM BY GILLES LAZARO MA ANNOTFERMIN ON/ADDEN DUM Donny Steward, [facility] [address] [facility] [address], [place], [address], [facility] 6 09:45:34 COVID-19 [id number] Completed 201908/15/2020 Removal Reason: Problem marked historic al by user [email or web address] from the COVID-19 watch flag Donny Steward, [facility] [address] [facility] [address], [place], [address], [facility] 1 10:40:25 Generali zed anxiety disorder 20193112 Active 2019 Debbi pickett MA null, [facility] 1 10:12:16 Moderate recurren t major depressi on 92902365 Active 2019 Debbi pickett MA null, [facility] 1 10:12:34 Migraine 33625647 Active 2021 Gonzalo Mercado MD [address], [place], [address], [facility] 2 14:52:10 Anxiety 24082586 Active 2022 Donny Steward, [facility] [address] [facility] [address], [place], [address], [facility] 3 13:19:57 Recurren t major depressi ve episodes , moderate 075972515 Active 2022 NOLBERTO BailonUP [address] [facility] [address], [place], [address], [facility] 3 13:19:57 Hyperlip idemia 26556525 Active 2022 Donny Steward [place]G [address], [place], [address], [facility] 3 13:26:24 Unable to concentr ate 85913369 Active 2022 YONATHAN Bailon [address], [place], [address], [facility] 3 13:36:31 Vitamin D deficien cy 59408149 Active 2023 YONATHAN Bailon [address] [address], [place], [address], [facility] 4 15:55:45 Insomnia 725613204 Active 2023 YONATHAN Bailon [address] [address], [place], [address], [facility] 4 16:16:24 Pain of left hip joint 12755571313 9100 Active 2023 YONATHAN Bailon [address] [address], [place], [address], [facility] 4 14:53:39 Moderate persiste nt asthma 944400241 Active 2023 YONATHAN Bailon [address] [address], [place], [address], [facility] 4 11:48:24 Spasm 11393754 Active 2024 YONATHAN Bailon [address], [place], [address], [facility] 5 15:39:17 Problem Notes None recorded. Procedures Surgical History Date Name Laterality Status Provider Name and Address Organization Details Recorded Time 06/01/20 25 ultrasonography completed Ene Molinaell [facility] 06/13/2025 11:39:23 Adenoidectomy completed Ene Molinaell [facility] 06/13/2025 11:38:24 Imaging Results None recorded. Procedure Notes None recorded. Medical Equipment None Reported. Allergies Allergen ID Allergen Name Allergen Category Reaction Reaction Severity Criticality Documentation Date Start Date Code Code System Note Provider Name and Address Organization Details Recorded Time 41831 escitalop sherwin Not available confusion severe high 10/12/2024 61470 8 RxNorm Galina Terry MA null, [facility] 5 15:17:03 568 No known allergy (situatio n) Not available Not available Not available Not available 02/14/20142011 40053 6003 SNOMED COMME NT: RECOR DED 04/22 1:35P M BY GALINA KIRK CE, OFFIC E VISIT ; Not Available [facility] 4 13:18:58 569 Robaxin medicatio n myalgias (muscle pain) Not available Not available 02/14/201422640 5 RxNorm Donny Steward, [facility] [address], [place], [address], [facility] 4 14:10:21 Medications Name Sig Start Date [...] 13 4:09PM BY TITA CONCEPCION, ANNOTATI ON/SHALONDA VERMA; Not Available Not Available Not Available cetirizin [...] completed Not Available Not Available Not Available FE (28) 1.5 mg-30 mcg (21)/75 mg (7) [...] 07 9:21AM BY AMILCAR Norman, MEDICATI ON AUTO-BRYAN CTIVATIO N;THIS ORDER DISCONTI NUED PER MEDI-SPA N. Not Available Not Available Not Available apple cider vinegar 1 tablet daily 12/14 completed Unknown strength Not Available Not Available Not Available Vitamin B6 03/03 completed Not Available Not Available Not Available collagen 1 po qd 03/03 completed Not Available Not Available Not Available Junel FE .12/30 (28) 06/07 completed Not Available Not Available Not Available budesonid e-formote rol HFA 160 mcg-4.5 mcg/actua tion aerosol inhaler INHALE 2 PUFFS INTO THE LUNGS TWICE A DAY DIRECTED 2024 active Not Available Not [...] Updated DateTime 5 167.64 cm 24.1 kg/m2 23356.9 6 g 98 % 81 /min 98.6 [degF] 122/73 mm[Hg] Galina Terry MA [facility] 5 09:56:51 Date Recorded Body height Provider Name an d Address Organization Details Last Updated DateTime 10/12/2024 167.64 cm Galina Terry MA [facility] 10/12/2024 15:15:42 Date Recorded Body height Body mass index (BMI) Body weight Heart rate Oxygen saturation Body temperature Systolic And Diastolic Provider Name and Address Organization Details Last Updated DateTime 5 167.64 cm 27.1 kg/m2 42840.5 2 g 80 /min 98 % 98.2 [degF] 113/73 mm[Hg] Elisa foster [facility] 5 09:03:54 Date Recorded Body height Body mass index (BMI) Body weight Heart rate Oxygen saturation Body temperature Systolic And Diastolic Provider Name and Address Organization Details Last Updated DateTime 5 167.64 cm 26.3 kg/m2 87883.5 6 g 67 /min 96 % 98.2 [degF] 130/72 mm[Hg] Elisa foster [facility] 5 14:59:04 Date Recorded Body height Body mass index (BMI) Body weight Oxygen saturation Heart rate Body temperature Systolic And Diastolic Provider Name and Address Organization Details Last Updated DateTime 4 167.64 cm 26 kg/m2 07014.4 7 g 98 % 81 /min 98.4 [degF] 116/67 mm[Hg] Galina Terry MA [facility] 4 14:44:19 Social History Question Answer Notes LastModified by Organizat ion Details LastModified Time Tobacco Smoking Status Never Smoker Sonja vilchis [facility] 05/11/2014 13:59:39 Do You Have An [...] Or Greater Than 100 Degrees Fahrenheit? No [email or web address] Information not available 06/19/2020 Are You Or Anyone In Your Household A Health Care Provider Or Emergency Responder? No [email or web address] Information not available 06/19/2020 To The Best Of Your Knowledge Have You Been In Close Proximity To Any Individual Who Tested Positive For COVID-19? No [email or web address] Information not available 06/19/2020 Have You Recently Traveled To A COVID-19 High Risk Area Or Gathering In The Last 10 Days? No [email or web address] Information not available 08/15/2020 What Was The Date Of Your Most Recent Tobacco Screening? 03/03/2025 [email or web address] Information not available 03/03/2025 How Many Children Do You Have? 0 Information not available 06/25/2021 Do You Use Protection During Sex? Usually [email or web address] Information not available 12/30/2023 What Is Your [...] able to care for yourself independently? Yes [email or web address] Information not available 12/30/2023 What is your [...] Not available 06/25/2021 13:27:35 Father Well adult [email or web address] Not avail able 04/29/2023 14:30:09 Father Blood pressure finding 53 [email or web address] Not available 04/29 14:30:09 Father Harmful pattern of use of alcohol Not available 2020 13:27:35 Maternal Aunt Carcinoma in situ of breast [email or web address] Not available 04/29 14:30:09 Maternal Grandmother Hypothyroidi sm [email or web address] Not available 04/29 14:30:09 Paternal Aunt Malignant neoplasm of skin 62 [email or web address] Not available 04/29 14:30:09 Maternal Grandfather Blood pressure finding [email or web address] Not available 04/29 14:30:09 Maternal Grandfather Diabetes mellitus Not available 2020 13:27:35 Maternal Grandfather Arthritis Not available 06/04 13:27:35 Brother Myocardial infarction 36 Not available 04/04 14:30:09 Unspecified Relation Alzheimer's [...] mcg/0.3 mL dose 06/04/20 21 completed ANABEL Jay [facility] 11/20/2021 13:27:49 COVID-19, mRNA, LNP-S, PF, 30 mcg/0.3 mL dose 10/06/19 21 completed ANABEL Jay, [facility] 11/20/2021 13:27:49 COVID-19, mRNA, LNP-S, PF, 30 mcg/0.3 mL dose 11/04/19 21 completed ANABEL Jay [facility] 11/20/2021 13:27:49 Influenza, split virus, quadrivalent, PF 06/19/20 20 [facility] 14:24:15 Influenza, split virus, quadrivalent, PF 06/25/20 21 [facility] 14:24:15 Tdap 06/25/20 21 completed ANABEL Leung [facility] 04/11/2022 14:24:15 Influenza, split virus, quadrivalent, PF 08/23/19 20 cancelled patient objection [facility]EL [facility] 08/[facility]/2019 09:56:39 IPV 06/03/19 89 completed Not Available [facility] 02/14/2014 13:23:38 DTaP 06/03/19 89 completed Not Available [facility] 02/14/2014 13:23:38 DTaP 08/03/18 90 completed Not Available [facility] 02/14/2014 13:23:38 IPV 08/03/18 90 completed Not Available [facility] 02/14/2014 13:23:38 DTaP 10/01/18 90 completed Not Available [facility] 02/14/2014 13:23:39 Hib (HbOC) 07/03/19 90 completed Not Available [facility] 02/14/2014 13:23:39 MMR 07/03/19 90 completed Not Available [facility] 02/14/2014 13:23:39 IPV 10/01/18 91 completed Not Available [facility] 02/14/2014 13:23:39 DTaP 10/01/18 91 completed Not Available [facility] 02/14/2014 13:23:39 varicella 08/03/18 92 completed Not Available [facility] 02/14/2014 13:23:39 DTaP 06/03/19 93 completed Not Available [facility] 02/14/2014 13:23:39 IPV 06/03/19 93 completed Not Available [facility] 02/14/2014 13:23:39 Hep B, adolescent or pediatric 04/03/19 99 completed Not Available [facility] 02/14/2014 13:23:39 Td (adult), 2 Lf tetanus toxoid, preservative free, adsorbed 04/03/19 99 completed Not Available [facility] 02/14/2014 13:23:39 Hep B, adolescent or pediatric 08/03/19 00 completed Not Available [facility] 02/14/2014 13:23:39 Hep B, adolescent or pediatric 05/03/20 00 completed Not Available [facility] 02/14/2014 13:23:39 MMR 05/03/20 00 completed Not Available [facility] 02/14/2014 13:23:39 Influenza, split virus, trivalent, preservative 06/30/20 07 completed Not Available [facility] 02/14/2014 13:23:39 Tdap 12/10/19 11 completed Not Available [facility] 02/14/2014 13:23:39 Influenza, split virus, trivalent, preservative 07/14/20 11 completed Not Available [facility] 02/14/2014 13:23:39 influenza, seasonal, intradermal, preservative free 09/02/19 13 completed Not Available [facility] 02/14/2014 13:23:39 Past Encounters Encounter ID Performer Location Encounter Start Date Encounter Closed Date Diagnosis/Indication Diagnosis SNOMED-CT Code Diagnosis ICD10 Code Diagnosis IMO Codes Diagnosis Note [id number] auto[address]Comm erce [address] [place] [address] 12/31/2006 00:00:00 [id number] [address] [place] [address] 10/19/2007 00:00:00 [id number] autoEComm erce [address] [place] [address] 09/03/2006 00:00:00 [id number] autoEComm erce [address] [facility] [place] [address] 02/28/2008 00:00:00 [id number] autoEComm erce [address] [facility] [place] [address] 10/04/2008 00:00:00 [id number] autoEComm erce [address] [facility] [place] [address] 05/28/2010 00:00:00 [id number] autoEComm erce [address] [facility] [place] [address] 12/09/2010 00:00:00 [id number] autoEComm erce [address] [facility] [place] [address] 07/14/2011 00:00:00 [id number] autoEComm erce [address] [facility] [place] [address] 07/17/2011 00:00:00 [id number] autoEComm erce [address] [facility] [place] [address] 07/31/2011 00:00:00 [id number] autoEComm erce [address] [facility] [place] [address] 09/18/2011 00:00:00 [id number] autoEComm erce [address] [facility] [place] [address] 04/22/2012 00:00:00 [id number] autoEComm erce [address] [place] [address] 08/30/2012 00:00:00 [id number] autoEComm erce [address] [facility] [place] [address] 09/02/2012 00:00:00 [id number] autoEComm erce [address] [place], [place] [address] 12/03/2012 00:00:00 [id number] autoEComm erce [address] [facility] [place], [place] [address] 12/13/2012 00:00:00 [id number] autoEComm erce [address] [facility] [place] [address] 02/07/2013 00:00:00 [id number] autoEComm erce [address] [facility] [place] [address] 03/23/2013 00:00:00 [id number] [employer] [address] [facility],[place] [address] [place], [place] [address] 08/25/2013 00:00:00 [id number] Kevyn Mcdonough MD Main Office [address] [place], [place] [address] 03/14/2014 13:00:50 03/14/2014 13:43:29 Tuberculosis screening [id number] Camryn ramirez MD Main Office [address] [facility] 207 [place], [place] [address] 03/17/2014 09:55:15 03/17/2014 13:11:40 [id number] Camryn ramirez MD Main Office [address] [facility] [address] [place], [place] [address] 05/11/2014 13:48:32 05/11/2014 14:32:56 Adult health examination 749482143 pap is utd, doing a great job with weight loss, over 25lbs, is exercising . Asthma 977102236 stable on inhaler prn Allergy 611676587 beesting anaphylaxi s, hx, I reviewed with pt to carry epipen all the time, may repeat one time with second injector [id number] YONATHAN Bailon Main Office [address] [address] [place] [address] 01/31/2015 10:47:44 01/31/2015 11:19:21 Acute pharyngitis 205769842 Rapid strep negative, sore throat likely due to PND/ coughing, continue Flonase daily. Otitis media 75190918 Righ t OM, Tylenol or ibuprofen for fever/ pain, lots of fluids, amox as prescribed x 10 days even if feeling better. Cough 53069793 Hx of asthma, wheezing on exam, recommend she take her inhaler 4 times daily x 2 days then as needed, continue Flonase daily and robitussin w/ codeine for cough should also help sore throat. [id number] YONATHAN Bailon Main Office [address] [address] [place] [address] 02/14/2015 14:40:30 02/14/2015 15:15:08 Cough 00087264 Robitussin with codeine as needed, use your inhaler every 4 hours as needed, CXR today. Asthma 810737289 Short prednisone burst for wheezing/ continued cough symptoms [id number] Camryn ramirez MD Main Office [address] [address] [place] [address] 02/16/2015 13:49:41 02/16/2015 14:33:12 Cough 03258793 Pneumonia 407913254 see hx , prednisone helping but dark green sputum in ashtma flare treat as below, fluids rest call if not improving Acute asthma 795446542 [id number] Camryn ramirez MD Main Office [address] [place] [address] 08/10/2015 13:27:13 08/10/2015 14:00:09 Cough 96456853 R05 viral, treat as below, rest and fluids Upper resp iratory infection 05986229 J06.9 Asthma 006005802 J45.90 9 flared a bit, add advaira nd use proair with a spacer. reutn with sob, fever worsening status [id number] YONATHAN Bialon Main Office [address] [address] [place] [address] 12/25/2015 15:55:02 12/25/2015 16:24:33 Fatigue 51615752 R53.83 Will check blood work today. Patient may need to have a sleep study done as well as she does snore and finds she wakes up at night. Stay well hydrated, well balanced meals, continue exercise daily. Amenorrhea 00975290 N91. 2 She is 1 week overdue for her menses, is on OCP and took it throughout instead of taking placebo due to vacation, will chesk test. [id number] Donny Steward [facility] Main Office [address] [facility] 207 [place] [address] 01/08/2016 09:31:03 01/08/2016 10:12:18 Adult health examination 523010719 Z00.01 Will update immunizati on status and screen based on risk factors. Regular dental care, periodic eye examinatio ns, and safety measures advised. Distracted driving discussed. Immunizati ons UTD, blood work normal about 2 weeks ago. Pap UTD, will request records. [id number] [facility]ward [facility] Main Office [address] [facility] 207 [place] [address] 01/08/2017 08:42:26 01/08/2017 09:36:21 Adult health examination 218840562 Z00.00 Will update immunizati on status and screen based on risk factors. Regular dental care, periodic eye examinatio ns, and safety measures advised. Distracted driving discussed. Pap UTD Snoring 37652083 R06.83 Will check sleep study as fatigue continues. Fatigue 18407360 R53.83 Will check blood work today. Patient may need to have a sleep study done as well as she does snore and finds she wakes up at night. Stay well hydrated, well balanced meals, continue exercise daily. [id number] Samaria Ramos PA-C Main Office [address] [facility] 207 [place] [address] 02/17/2017 11:31:42 02/17/2017 12:03:12 Acute pharyngitis 414694714 J02.9 Acute otitis media 49698 03 H65.112 STart Sudafed PE 120 mg BID for decongesti on as well as Abx prescribed . OTC pain medication s advised. Manuel works the best for her. Eustachian tube disorder 93147421 H69.93 Pt. has h/o allergies. Uses FLovent. Advised to also try antihistam jaclyn. [id number] Camryn ramirez MD Main Office [address] [address] [place] [address] 09/17/2017 12:37:18 09/17/2017 13:50:17 Acute pharyngitis 945259006 J02.9 neg quick strep Fever 165275532 R50.9 Influenza 3727971 J11.1 positive flu test, tx as below, fluids, rest return if any worsening [id number] YONATHAN Bailon Main Office [address] [place] [address] 01/28/2018 11:24:46 01/28/2018 12:12:35 Adult health examination 781834034 Z00.00 Will update immunizati on status and screen based on risk factors. Regular dental care, periodic eye examinatio ns, and safety measures advised. Distracted driving discussed. Pap UTD Epidermoid cyst 15292711 6 L72.0 [id number] Dar Ramos PA-C Main Office [address] [place] [address] 06/07/2018 10:28:57 06/07/2018 11:41:35 Acute sinusitis 85526166 J01.90 rec probiotics while on abx [id number] Kevyn Mcdonough MD Main Office [address] [place] [address] 02/25/2019 12:57:38 02/25/2019 13:53:16 Adult health examination 608627395 Z00.00 Will update immunizati on status and screen based on risk factors. Regular dental care, periodic eye examinatio ns, and safety measures advised. Distracted driving discussed. Pap UTD Degenerati on of lumbar intervertebral disc 69788233 M51.36 Greater tr ochanteric pain syndrome 3343257 M70.62 right sided. she will take ibuprofen TID with food x 5 days. ,heat or ice whichever feels best, stretches as tolerated. recommend she use a recumbent bike/ take a break from elliptical . [id number] Kevyn Mcdonough MD Main Office 36[address] [facility] 207 [place] [address] 05/19/2019 14:10:58 05/19/2019 15:00:51 Adjustment disorder with anxious mood 46349935 F43.22 Patient has not slept multiple nights [...] we will discuss further tx with SSRI. [id number] Kevyn Mcdonough MD Main Office [address] [address] [place] [address] 07/14/2019 11:13:36 07/14/2019 12:03:35 Recurrent major depressive episodes, moderate 464793032 F33.1 doing ok on lexapro but still scoring high on PHQ-9 and CUBA. she is not crying as easily so is getting some relief from med. recommend we increase the dose and have her push it up to dinner time. May be more tired due to also taking melatonin with med. f/u in 6 weeks. Adjustment disorder with anxious mood 20180716 F43.22 do not take this with melatonin, use only as needed, no driving or alcohol with med. [id number] Kevyn Mcdonough MD Main Office 36[address] [facility] [address] [place] [address] 08/23/2019 09:30:03 08/23/2019 10:33:59 Influenza vaccination declined 503208044 Z28.21 Generalize d anxiety disorder 14202927 F41.1 Adjustment disorder with mixed emotional features 50199334 F43.23 Recurrent major depressive episodes, moderate 796112058 F33.1 Much better on 20mg lexapro. will continue, has a good support system. Will wait until PE in January for follow-up but will call if she needs anything prior. [id number] Kevyn Mcdonough MD Main Office [address] [facility] 207 [place] [address] 06/19/2020 14:27:46 06/19/2020 15:44:59 Adult health examination 981265310 Z00.00 Will update immunizati on status and screen based on risk factors. Regular dental care, periodic eye examinatio ns, and safety measures advised. Distracted driving discussed. Pap appt upcoming Needs infl uenza immunization 055527805 Z23 Abnormal weight gain 161 418102 R63.5 weight gain, on lexapro, not exercising much except she is active on weekends.. will switch lexapro to setraline, recommend short HIIT workouts or 30 mins exercise 4 times weekly, dietary changes. Screening for cardiovascular system disease 333995962 Z13.6 Recurrent major depressive episodes, moderate 537432046 F33.1 no need to wean off lexapro, start sertraline instead of next dose of lexapro. f/u in 1month for rec heck. Anxiety 90629667 F41.9 [id number] Kevyn Mcdonough MD [facility] [address] [facility] [address] [place] [address] 07/18/2020 13:06:16 07/19/2020 08:58:40 Recurrent major depressive episodes, moderate 922605573 F33.1 will increase sertraline to 100mg daily. add lorazepam to use as needed until med kicks in fully. if any problems with med please call/ return. Generalize d anxiety disorder 91939402 F41.1 [id number] Kevyn Mcdonough MD [facility] [address] [facility] [address] [place] [address] 08/15/2020 07:27:16 08/16/2020 13:39:16 Generalized anxiety disorder 36463115 F41.1 CUBA score 06/23 today. Moderate r ecurrent major depression 38853904 F33.1 PHQ-9 score 15. Improving but slowly, [...] no change will add wellbutrin daily. Asthma 897921632 J45.90 9 Short prednisone burst for wheezing/ continued cough symptoms [id number] Kevyn Mcdonough MD [place] [address] [place] [address] 08/30/2020 08:18:48 08/30/2020 14:57:30 Moderate recurrent major depression 58553180 F33.1 PHQ-9 score 20/27. Improving but slowly, [...] weeks for recheck. Generalize d anxiety disorder 97930267 F41.1 CUBA score 8/21 today. Improved. she feels anxiety is a lot better . [id number] Kevyn Mcdonough MD [place] [address] [address] 09/13/2020 06:21:52 09/13/2020 12:52:26 Moderate recurrent major depression 89211192 F33.1 PHQ-9 score 12/27. Improving but slowly, Patient is frustrated that she is not feeling better. Positive reinforcem ent provided, continue meds as directed, do not miss doses or stop meds abruptly. F/u in 2 months for recheck. Generalize d anxiety disorder 22409444 F41.1 CUBA score 4/21 today. Improved. she feels anxiety is a lot better . Insomnia 280992343 G47.0 0 using lorazepam as needed. [id number] Gonzalo Mercado MD [address] [place] [address] 09/15/2020 09:08:57 09/15/2020 12:14:54 Dysuria 40175917 R30.9 Will cover for uncomplica john cystitis. Push fluids and submit UA/culture if possible prior to starting abx. INB/worse will need further eval. [id number] Kevyn Mcdonough MD Main Office [address] [facility] 207 [place] [address] 04/30/2021 10:38:55 04/30/2021 11:21:37 Amenorrhea 75723997 N91.2 She took preg test at home [...] results of serum Generalize d anxiety disorder 01925003 F41.1 [id number] Kevyn Mcdonough MD Main Office 36[address] [facility] 207 [place] [address] 06/25/2021 13:24:46 06/25/2021 14:14:58 Adult health examination 146459311 Z00.00 Will update immunizati on status and screen based on risk factors. Regular dental care, periodic eye examinatio ns, and safety measures advised. Distracted driving discussed. Needs infl uenza immunization 096792687 Z23 Recurrent major depressive episodes, moderate 649366276 F33.1 doing well off meds. Anxiety 65958048 F41.9 doing well off meds Contracept ion care management 899552227 Z30.9 she is currently on mini pill and does not feel it is working well for her. She was on previously and had decreased sex drive. Will try lower dose OCP. Take at same time daily, do not miss doses or double doses. Exposure t o sexually transmissible disorder 407825680 Z20.2 Administra tion of viral vaccine 05809033 Z23 Screening for malignant neoplasm of cervix 416381295 Z12.4 due for screening. [id number] Kevyn Mcdonough MD [facility] [address] [facility] [address] [place] [address] 11/20/2021 07:57:39 11/20/2021 14:52:26 Generalized anxiety disorder 65102875 F41.1 CUBA- 12/21. using THC products, she notes she wants to get a medical card. Does not want to re-start meds. Moderate r ecurrent major depression 11159281 F33.1 PHQ-9 . She is very nervous to re-start a med as most recent side effects were very bad. She feels like she is using so much energy at work trying to be normal and happy but her efforts are not cutting it. [id number] Gonzalo Mercado MD [facility] [address] [place] [address] 04/11/2022 13:06:35 04/11/2022 16:26:49 Fever 029416569 R50.9 This is unusual and has not recurred. Difficult to say if infectious illness is evolving of if possibly relate to onset of menses. Advised to call if recurs or if infectious symptoms develop. Headache 64292555 R51.9 Sounds migranous, no meningismu s. WiIl try tryptan and continue excedrin migraine PRN. Adequate hydration advised as well. Migraine 29074805 G43.90 9 Correlates to menses. See if sumatripta n works as abortive therapy. Advised to call for in office eval if worsening. Advised of common/ser ious potential side effects. [id number] Kevyn Mcdonough MD Main Office [address] [place] [address] 06/18/2022 13:25:00 06/18/2022 14:07:05 Exposure to sexually transmissible disorder 171697688 Z20.2 Had intercours e with a man once 3 months ago who called her to let her know that he was with someone who tested positive for chlamydia. She is symptom-fr ee. [id number] Kevyn Mcdonough MD Main Office [address] [place] [address] 02/12/2023 13:02:32 02/12/2023 13:53:26 Adult health examination 111037043 Z00.00 Will update immunizati on status and screen based on risk factors. Regular dental care, periodic eye examinatio ns, and safety measures advised. Distracted driving discussed. Exposure t o sexually transmissible disorder 489256372 Z20.2 Screening for malignant neoplasm of cervix 898082328 Z12.4 due for screening, she will schedule Hyperlipidemia 07336136 E78.5 Fatigue 75287053 R53.83 Unable to concentrate 60 807549 R41.840 will refer, unclear if her insurance will cover testing. [id number] Gonzalo Mercado MD [address] [place] [address] 02/24/2023 14:23:27 02/24/2023 16:23:27 Dysuria 79667287 R30.0 pt will give urine sample - check u/s & c&s, and will rx empiricall y c cipro cont push fluids, consider cranberry juice, also consider prn pyridium recommend probiotics while on abx Flank pain 356802827 R10 .9 check u/s to r/o kidney stones [id number] Kevyn Mcdonough MD [address] [place] [address] 04/29/2023 14:30:01 04/29/2023 15:30:38 Anxiety 77577431 F41.9 will take some time off work to reset- note provided, continue seeign therapy. Call/ return for any concerns or worsening. Moderate r ecurrent major depression 64594450 F33.1 She is very nervous to re-start a med as most recent side effects were very bad. She feels like she is using so much energy at work trying to be normal and happy but her efforts are not cutting it. [id number] Kevyn Mcdonough MD [address] [place] [address] 12/30/2023 14:04:16 12/30/2023 15:13:21 Anxiety 63800695 F41.9 CUBA . Ready to start med, [...] recheck. Major depr ession in partial remission 28582293 F32.4 PHQ score 09/29. [id number] Kevyn Mcdonough MD [facility] [address] [facility] 207 [facility] [place] [address] 02/17/2024 14:52:20 02/17/2024 16:15:30 Moderate recurrent major depression 32585705 F33.1 She is very nervous to re-start a med as most recent side effects were very bad. She feels like she is using so much energy at work trying to be normal and happy but her efforts are not cutting it. PHQ score . Anxiety 00177147 F41.9 CUBA .Gisela galvan increased on venlafaxin [...] F/u in 4 weeks for recheck. Fatigue 85523409 R53.83 Hyperlipidemia 39461939 E78.5 Vitamin D deficiency 347 72834 E55.9 [id number] Kevyn Mcdonough MD Main Office [address] [place] [address] 03/15/2024 15:20:09 03/15/2024 16:27:36 Adult health examination 605789895 Z00.00 Will update immunizati on status and screen based on risk factors. Regular dental care, periodic eye examinatio ns, and safety measures advised. Distracted driving discussed. Screening for malignant neoplasm of cervix 600815003 Z12.4 due for screening, she will schedule Hyperlipidemia 89678636 E78.5 Fatigue 63461935 R53.83 Migraine 50074516 G43.90 9 refill provided Asthma 743506382 J45.90 9 refill provided Moderate r ecurrent major depression 15978224 F33.1 bupropion is helping, she does feel she needs an increased ose but is not sleepign well. Will change to SR dosing 100mg BID, take in am and early afternoon to see if that helps. if not we can go back to 150mg XL daily. Insomnia 366546713 G47.0 0 lorazepam as needed for sleep until med adjustment . [id number] Kevyn Mcdonough MD Main Office [address] [facility] [address] [facility] [place] [address] 04/21/2024 14:28:23 04/21/2024 15:15:04 Pain of left hip joint 8984308362 28839 M25.552 suspect referred pain but will XR both hip/ pelvis and lumbar spine Low back pain 702647631 M54.50 Suspect lumbar radiculopa thy/ sciatica. Meloxicam once daily with food x 14 days, heat orn ice whichever feels best, stretching as tolerated, cyclobenza kamini as needed at bedtime- no driving, work or alcohol with med. Xrays today. [id number] Kevyn Mcdonough MD Main Office [address] [facility] [address] [facility] [place] [address] 08/15/2024 09:42:23 08/15/2024 10:22:35 Cyst of ovary 82297217 N83.209 -CT findings of bilateral adnexal cyst and possible ruptured cyst-endor ses lower abdominal/ pelvic discomfort around menstruati on>regular monthly cycles-was advised to f/u with solar mechanical engineer-pt's solar mechanical engineer office recently closed, will refer to [facility] solar mechanical engineer Hemorrhoids 36321633 K64 .9 reviewed hospital documentat ion-was evaluated for rectal bleeding x2 weeks-last episode of bright red blood per rectum was last -w as advised to f/u with GI for possible anoscopy or internal hemorrhoid ligation [id number] [facility] [address] [facility] [address] [place] [address] 10/12/2024 12:53:56 10/12/2024 16:07:41 Generalized anxiety disorder 75385115 F41.1 CUBA- 16. using THC products, she notes she wants to get a medical card. Does not want to re-start SSRI at this time. Moderate r ecurrent major depression 40523119 F33.1 05/29, continue bupropion, will fill out FMLA paperwork for her. recommend she re-connect with her therapist to sort through her feelings Spasm 27051894 R25.2 having spasms in am, is hydrating, will try tizanidine at bedtime to see if it helps with sx. [id number] Kevyn Mcdonough MD Main Office 3640 [facility] [address] [place] [address] 12/14/2024 08:53:36 12/14/2024 09:33:13 Miscarriage 68062346 O03.9 73364 -was evaluated for heavy bleeding-d x with [...] for intermitte nt leave Transition of care 25640 28054 105 Z78.9 41566775 reviewed hospital documentat ion Generalize d anxiety disorder 16610249 F41.1 CUBA- . using THC products, she notes she wants to get a medical card. Does not want to re-start SSRI at this time. Moderate r ecurrent major depression 69550140 F33.1 [id number] Kevyn Mcdonough MD Main Office [address] [facility] [address] [place] [address] 03/03/2025 14:51:08 03/03/2025 15:23:28 Adult health examination 123414929 Z00.00 UTD. Will update immunizati on status and screen based on risk factors. Regular dental care, periodic eye examinatio ns, and safety measures advised. Distracted driving discussed. Hyperlipidemia 53932681 E78.5 Asthma 598991063 J45.90 9 refill provided Moderate r ecurrent major depression 53746738 F33.1 bupropion is helping, c/w 300mg Insomnia 240689159 G47.0 0 -continues to wake 2x a night for 20min at a time-had no relief from lorazepam- may be related to undiagnose d ADHD-pt not interested in medication at this time, prefers to wait until she sees psych Poor concentration 70990 005 R41.840 238914 -symptoms of difficulty concentrat ing, completing tasks, and focusing-f inds her mind to be all over the place -wou ld benefit from a formal evaluation for ADHD-will refer to psych Moderate p ersistent asthma 225852295 J45.40 refills provided Health Concerns Section Related Observation LastModified by Organization Detai ls LastModified Time None Recorded Concern Status LastModified by Organization Details LastModified Time None Recorded Advance Directives Directive Y: Payers Insurance Date Sequence Insurance Name Policy Number Policy Cooper Covered Member ID Cooper Member ID Guarantor Name 12/08/2022 1 [place] [id number] Aysha Veliz [id number] Aysha Veliz 11/19/2021 1 [place] [facility] ([facility] [id number] Aysha Pastor [id number] Aysha Veliz 11/19/2021 1 [facility] PUBLIC PLANS [facility] TYPE I ([facility]) Aysha Pastor [id number] Aysha Veliz 02/20/2025 1 [facility] ([facility] [id number] Aysha Veliz [id number] Aysha Veliz 12/29/2023 1 [employer] (POS) [id number] Aysha Veliz [id number] Aysha Figueroas 04/21/2025 1 [employer] (POS) [id number] 0003 Aysha Veliz [id number] Aysha Veliz 08/10/2015 1 [facility] [id number] Arnulfo Wilson [id number] Aysha Veliz 02/23/2020 1 [facility] (O) [id number] Mihai Pastor [id number] Aysha Veliz Notes Date Note Type Note [...] raining. thought weather related.04/01 walked around in [place] and was having a lot more pain was wearing comfortable, supportive sneakers.Pain is constant and flares with certain activities and at the end of the day. has trouble even laying on that side, and has diff moving her body to the other side or her back. YONATHAN Bailon [address] [facility] [address], [place], [address], [facility] 04/21/2024 15:49:25 08/15/2024 text/html ROS as noted in the HPI Aysha is a 34yr old F who presents for a hospital f/u. [facility]: [facility]: 08/09/23 Aysha was evalauted at [facility] for bright red blood per rectum x2 weeks. Associated lower abdominal cramping. Denies of any known trauma, fever/chills. US revealed bilateral cyst, possible cyst rupture. No GI findings. CT scan was ordered and revealed finding suggestive of ruptured adnexal cysts w/ trace free pelvic fluid. TITA ROCHA [address], [place], [address], [facility] 08/16/2024 22:49:38 10/12/2024 text/html Generic HPI [...] is happening. Last Thursday she went to [employer] for cake tasting with her aunt, her [...] medicating. Her fiance is very supportive. Tish vilchis [facility] 11/03/2024 16:16:13 12/14/2024 text/html ROS as noted [...] and has an appt tomorrow. TITA ROCHA [address], [place], [address], [facility] 12/14/2024 09:39:46 03/03/2025 text/html ROS as [...] referral to psychiatry for evaluation. TITA ROCHA [address] [facility] [address], [place], [address], [facility] 03/03/2025 15:27:14 OBGyn Episode No OBEpisode recorded.
--- OUTSIDE RECORDS SUMMARY | 2025-07-18 17:19 | XMS_ITS | Clinical Summary ---
Author Organization [facility] [address] [place] [address] Phone Care Team Providers Care [employer] Name Role Phone Aye Juarez Primary Care [...] in first trimester 11/29/2024 Overview (12/01/2024): 1. [facility] site: [facility] ObGyn: [address] [place] [address] ([phone]) 2. Delivery site: [facility] 3. Mobile Mommas: No 4. Dating criteria: [...] Generalized anxiety disorder 07/18/2020 Moderate episode of recurrent major depressive d isorder 07/18/2020 COVID-19 05/19/2020 Overview (12/06/2024): Removal Reason: Problem marked historical by user [email or web address] from the COVID-19 watch flag Nausea 03/23/2013 [...] venom 08/30/2012 Overview (12/06/2024): IMPRESSION: PT TO [employer] WITH [employer], KNOWS HOW TO [...] for your loved ones. For example, child nutrition assistant or elderly care for an older adult? 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 file Not on file [...] Hepatitis C antibody (12/01/2024 3:41 PM EDT) [facility] Hepatitis C Antibody Negative Negative LAB CHEMISTRY METHOD 12/01/2024 7:06 PM EDT [facility] Blood Venous blood specimen / Unknown Venipuncture / Unknown 12/01/2024 3:41 PM EDT 12/01/2024 3:41 PM EDT Rosina David [facility] LAB BLOOD ORDERABLES Final Result [facility] [address] [place] [address], * HIV 1,2 antibody, p24 antigen with reflex to differentiation (12/01/2024 3:41 PM EDT) [facility] HIV Combo AB/AG Negative Negative LAB CHEMISTRY METHOD 12/01/2024 7:06 PM EDT [facility] Blood Venous blood specimen / Unknown Venipuncture / Unknown 12/01/2024 3:41 PM EDT 12/01/2024 3:41 PM EDT Narrative [facility] - 12/01/2024 7:06 PM EDT This assay is a 4th generation assay allowing for earlier detection of HIV infection by detecting the presence of the HIV-1 p24 antigen as well as the traditional antibodies to HIV type 1 (including group O) and type 2. Use of a 4th generation assay is the current CDC recommendation for HIV screening. Rosina SINGH LAB BLOOD ORDERABLES Final Result [facility] [address] [place] [address], [place] [phone] from Last 3 Months or Most Recently Relevant to Health Maintenance Insurance [facility] [address] [place] [address] Care Teams [employer] Relationship Specialty Start Date End Date Aye Juarez PA [address] [facility] [address] [place] [address] PCP - General 12/05/24
== END 2025-07-18 13:42 | disposition home or self-care (01) ==
LOC: HO.HWS 13:18
PROVIDERS: PCP Student in an Organized Health Care Education/Training Program; Visit Provider Obstetrics & Gynecology
DX: N83.291 Other ovarian cyst, right side (principal); N83.292 Other ovarian cyst, left side
CPT/HCPCS: 99213